=== PATIENT | female | born 1940 | race Caucasian/White ===

== ENCOUNTER 2016-12-01 14:50 | Emergency (ER) | payer OTHER ==
[2016-12-01] MEDS ORDERED: methylPREDNISolone SOD SUCC 125 MG/2 ML VIAL IVP ONE (16:21)
[2016-12-01] MEDS ORDERED: IPRATROPIUM/ALBUTEROL 3 ML DEYVIAL IH ONE (16:22)
--- NOTE | 2016-12-01 16:39 | UCPHY ---
H & P Patient Type: Established HPI/ROS: CHIEF COMPLAINT: Cough, shortness of breath HISTORY OF PRESENT ILLNESS: cough of several days duration. This is gradual in onset. Constant in duration. Mild to moderate in severity. Steadily worsening since starting. No chest pain with this but does have a pleuritic pain with coughing. Occasionally she coughs so hard she has a headache. No nausea or vomiting. No neck pain or stiffness. No fever or chills. No body aches. She does have a 25 pack-year history of smoking but she quit 15 years ago. She denies any diagnosis of COPD, but she does have obstructive sleep apnea and is not taking her prescribed Qvar and Atrovent inhalers. Oxygen use at night with CPAP. Symptoms are worse with exacerbation of a cough which is unpredictable. There is no known alleviating factor. No chest pain at rest. No other associated complaints or modifying factors. REVIEW OF SYSTEMS: Ten systems reviewed and are negative unless otherwise noted in the HPI EXAMINATION General Appearance: Alert, no distress Head: normocephalic, atraumatic Eyes: Pupils equal and round, no conjunctival pallor or injection ENT, Mouth: Mucous membranes moist Neck: Normal inspection, supple, non-tender Respiratory: Scattered rhonchi and mild expiratory wheezing. There is no consolidation. No retractions or distress. Cardiovascular: Regular rate and rhythm Gastrointestinal: Obese body habitus. No tenderness Back: non-tender, no bony abnormalities Neurological: A&O, nonfocal, normal gait Skin: Warm and dry, no rash Extremities: Nontender, bilateral, 1+ nonpitting pedal edema Psychiatric: Mood and affect normal Differential Diagnoses: 1. COPD exacerbation 2. acute bronchitis 3. community-acquired pneumonia 4. dyspnea MDM: cough and mild shortness of breath the patient is likely undiagnosed COPD patient. She has no chest pain of any kind. Her vital signs are stable. Examination is consistent more with COPD exacerbation versus bronchitis, less likely pneumonia. Labs and chest x-ray are pending at this time. She has not been taking her Qvar Atrovent as prescribed as she felt this was only as needed medications. Re-evaluation 17:30 Patient remains hemodynamically stable with normal oxygenation on room air. She is feeling minimally better after the DuoNeb treatment. Chest x-ray is read as a possible compensated CHF. She does have a mildly elevated BNP, this is consistent with her baseline per patient. She has no chest pain. Her cough is unimproved. This is likely a bronchitis, for which I will cover her with Levaquin and Tessalon Perles. Discharged home in stable condition to follow up with the primary care physician tomorrow or Monday. ED precautions for worsening cough, fever, chills, chest pain. Patient and spouse at bedside are comfortable with this plan. This patient was independently evaluated without the aide of supervising physician. Smoking Status: Former smoker Constitutional: Initial Vital Signs Temperature (C) 98.4 F 12/01/16 15:55 Heart Rate 69 12/01/16 15:55 Respiratory Rate 18 12/01/16 15:55 Blood Pressure 136/92 H 12/01/16 15:55 O2 Sat (%) 92 12/01/16 15:55 O2 Delivery Mode Room Air Allergies/Adverse Reactions: amoxicillin Allergy (Verified 12/01/16 15:46) erythromycin base [Erythromycin Base] Allergy (Verified 12/01/16 15:46) Rash Home Medications: Medication Instructions Recorded Bumetanide [Bumex (*)] 2 mg PO DAILY 09/24/13 Nebivolol HCl [Bystolic 5 mg (*)] 5 mg PO DAILY 09/24/13 [place]-3S/Dha/Epa/Fish Oil [Fish 1 each PO DAILY 09/24/13 Oil 1,200 mg Softgel] Omeprazole [Prilosec 20 mg] 40 mg PO DAILY 09/24/13 Potassium Cl [Klor-Con 20 meq (*)] 20 meq PO BID 09/24/13 FLUoxetine [Prozac 20 MG (*)] 20 mg PO DAILY 07/14/16 Herbals/Supplements -Info Only 1 ea PO DAILY 07/14/16 Multivitamins [Multivitamin (*)] 1 each PO DAILY 07/14/16 Atrovent Hfa (*) 12/01/16 Benzonatate [Tessalon Pearles (RX)] 100 mg PO Q6-8PRN PRN #12 cap 12/01/16 GABAPENTIN 12/01/16 Rosuvastatin Calcium 12/01/16 levOFLOXACIN [Levofloxacin] 750 mg PO DAILY #7 tablet 12/01/16 Medical Decision Making - Data Points Laboratory Results: Laboratory Results 12/01/16 16:50 12/01/16 16:50 12/01/16 12/01/16 17:35 16:50 WBC 4.88 10^3/uL (3.80-9.50) RBC 4.05 L 10^6/uL (4.18-5.33) Hgb 13.1 g/dL (12.6-16.3) Hct 38.3 % (38.0-47.0) MCV 94.6 fL (81.5-99.8) MCH 32.3 pg (27.9-34.1) MCHC 34.2 g/dL (32.4-36.7) RDW 14.0 % (11.5-15.2) Plt Count 141 L 10^3/uL (150-400) MPV 9.6 fL (8.7-11.7) Neut % (Auto) 59.1 % (39.3-74.2) Lymph % (Auto) 28.5 % (15.0-45.0) [place] % (Auto) 9.6 % (4.5-13.0) Eos % (Auto) 2.0 % (0.6-7.6) Baso % (Auto) 0.4 % (0.3-1.7) Nucleat RBC Rel Count 0.0 % (0.0-0.2) Absolute Neuts (auto) 2.88 10^3/uL (1.70-6.50) Absolute Lymphs (auto) 1.39 10^3/uL (1.00-3.00) Absolute Monos (auto) 0.47 10^3/uL (0.30-0.80) Absolute Eos (auto) 0.10 10^3/uL (0.03-0.40) Absolute Basos (auto) 0.02 10^3/uL (0.02-0.10) Absolute Nucleated RBC 0.00 10^3/uL (0-0.01) Immature Gran % 0.4 % (0.0-1.1) Immature Gran # 0.02 10^3/uL (0.00-0.10) Sodium 140 mEq/L (134-144) Potassium 4.2 mEq/L (3.5-5.2) Chloride 100 mEq/L (97-110) Carbon Dioxide 30 mEq/l (22-31) Anion Gap 10 mEq/L (8-16) BUN 18 mg/dL (7-23) Creatinine 1.0 mg/dL (0.6-1.0) Estimated GFR 54 Glucose 110 H mg/dL (70-100) Calcium 9.8 mg/dL (8.5-10.4) NT-Pro-B Natriuret Pep 904 H pg/mL (0-450) Influenza Typ A,B (DFA) NEGATIVE FOR FLU (NEGATIVE) Medications Given: Discontinued Medications Albuterol/Ipratropium (Duoneb) 3 ml IH EDNOW ONE Stop: 12/01/16 16:23 Last Admin: 12/01/16 16:40 Dose: 3 ml Methylprednisolone Sodium Succinate (Solu-Medrol) 125 mg IVP EDNOW ONE Stop: 12/01/16 16:22 Last Admin: 12/01/16 16:40 Dose: 125 mg Departure - Departure Disposition: Home, Routine, Self-Care Clinical Impression: CHF with right heart failure, Bronchitis, Cough Condition: Good Instructions: Acute Bronchitis (ED), Heart Failure (ED), Dextromethorphan (By mouth) Additional Instructions: Follow-up with primary care physician. Presents to the emergency department for worsening cough, fever, chills or any chest pain of any kind. Recommend wearing oxygen this evening and during CPAP tonight. Referrals: Gary Bush MD [Primary Care Provider] - 2-3 days, call for appt. Prescriptions: levOFLOXACIN [Levofloxacin] 750 mg PO DAILY #7 tablet Benzonatate [Tessalon Pearles (RX)] 100 mg PO Q6-8PRN PRN #12 cap PRN Reason: Cough, Mild - PQRS PQRS Measurement: Not applicable
[2016-12-01 16:54] LABS: % IMMATURE GRANULYOCYTES 0.4 % (0.0-1.1); ABSOLUTE IMMATURE GRANULOCYTES 0.02 10^3/uL (0.00-0.10); ADD DIFF? NO; ADD MORPH? NO; ADD SCAN? NO; ATYPICAL LYMPHOCYTE FLAG 20 (0-99); FRAGMENT RBC FLAG 0 (0-99); HEMATOCRIT 38.3 % (38.0-47.0); HEMOGLOBIN 13.1 g/dL (12.6-16.3); LEFT SHIFT FLG 0 (0-99); LIPEMIA HEMOLYSIS FLAG 90 (0-99); MEAN CELL HEMOGLOBIN 32.3 pg (27.9-34.1); MEAN CELL HEMOGLOBIN CONCENTR. 34.2 g/dL (32.4-36.7); MEAN CELL VOLUME 94.6 fL (81.5-99.8); MEAN PLATELET VOLUME 9.6 fL (8.7-11.7); PLATELET CLUMPS FLAG 0 (0-99); PLATELET COUNT 141 10^3/uL (150-400); RED BLOOD CELL COUNT 4.05 10^6/uL (4.18-5.33)
[2016-12-01 17:10] LABS: CALCIUM 9.8 mg/dL (8.5-10.4); POTASSIUM 4.2 mEq/L (3.5-5.2)
--- NOTE | 2016-12-01 17:10 | DX ---
Chest, PA and Lateral History:Cough and dyspnea. Comparison: July 14, 2016, September 25, 2013 and September 24, 2013 Findings: Chronic haziness at the left base likely is related to scarring or small chronic effusion. The heart is enlarged. The pulmonary vascularity looks redistributed. There is no pulmonary edema. Th ere is no focal infiltrate or consolidation. There is chronic degenerative change in the midthoracic spine. The patient is obese. Impression: Borderline compensated CHF. No evidence for pneumonia.
[2016-12-01 18:05] VITALS: TEMP 98; O2SAT 95
[2016-12-01 19:59] VITALS: BP 156/85; PULSE 89; RESP 20
== END 2016-12-01 19:57 | disposition home or self-care (01) ==
LOC: CED 14:50
DX: I50.9 Heart failure, unspecified (principal); J20.9 Acute bronchitis, unspecified; E66.9 Obesity, unspecified; Z87.891 Personal history of nicotine dependence
CPT/HCPCS: 71020; 96374; G0463; 80048-PO; 83880-PO; 85025-PO; 87400-PO; 99214-PO

== ENCOUNTER → 2016-12-01 | Outpatient (CLI) | payer OTHER ==
--- NOTE | 2016-12-01 15:48 | MA ---
Bilateral Digital Screening Mammography Clinical History: 76-year-old female with no family history of breast cancer presenting for routine a nnual mammographic screening. Technique: Digital CC, MLO, and cleavage views are submitted and compared to previous studies dated D 2014, October 10, 2014, September 04, 2013, September 07, 2012, and August 21, 2012. Cuta neous markers have been placed over moles on the skin surface of each breast. Additionally, this exam ination was processed by the [employer] computer-aided detection system. Breast Density: Type D - 75-100%. CAD Evaluation: Reviewed. Findings: There is a mild residual fibroglandular pattern with some scattered nodular opacities which are stable in distribution. There is no focal neodensity, or interim architectural change. Rare mark gn-appearing calcifications are seen, with no suspicious clusters. Impression: Negative mammography. BI-RADS category 1. Recommendation: Routine annual mammographic screening. [facility] will send a result letter to the patient. Negative mammography should not preclude additional workup of a clinically suspicious finding. The patient's information is entered into a reminder system with a target due date for her next mammo gram.
== END ==
LOC: CIMAGING 14:48
DX: Z12.31 Encounter for screening mammogram for malignant neoplasm of breast (principal)
CPT/HCPCS: G0202

== ENCOUNTER → 2017-05-06 | Outpatient (CLI) | payer OTHER | LOC: GIMAGING 18:44 | PROVIDERS: ATTEND Nurse Practitioner Family | DX: M79.675 Pain in left toe(s) (principal) | CPT/HCPCS: 73660-PO ==

== ENCOUNTER 2017-06-05 12:48 | Emergency (ER) | payer OTHER ==
[2017-06-05 14:55] LABS: % IMMATURE GRANULYOCYTES 0.2 % (0.0-1.1); ABSOLUTE IMMATURE GRANULOCYTES 0.01 10^3/uL (0.00-0.10); ADD DIFF? NO; ADD MORPH? NO; ADD SCAN? NO; ATYPICAL LYMPHOCYTE FLAG 20 (0-99); FRAGMENT RBC FLAG 0 (0-99); HEMATOCRIT 36.7 % (38.0-47.0); HEMOGLOBIN 12.4 g/dL (12.6-16.3); LEFT SHIFT FLG 10 (0-99); LIPEMIA HEMOLYSIS FLAG 90 (0-99); MEAN CELL HEMOGLOBIN 31.4 pg (27.9-34.1); MEAN CELL HEMOGLOBIN CONCENTR. 33.8 g/dL (32.4-36.7); MEAN CELL VOLUME 92.9 fL (81.5-99.8); MEAN PLATELET VOLUME 9.9 fL (8.7-11.7); PLATELET CLUMPS FLAG 10 (0-99); PLATELET COUNT 143 10^3/uL (150-400); RED BLOOD CELL COUNT 3.95 10^6/uL (4.18-5.33); RED CELL DISTRIBUTION WIDTH 14.5 % (11.5-15.2)
--- NOTE | 2017-06-05 14:58 | EDPHY ---
H & P Stated Complaint: Legs swelling/painful x several months;sent for "tests" HPI/ROS: CHIEF COMPLAINT: Lower extremity edema HISTORY OF PRESENT ILLNESS: Patient complains of several days duration of lower extremity edema. This was gradual onset. Constant duration. This is in addition to her chronic edema from congestive heart failure. He was some warmth and tenderness to both lower extremities, left greater than right. It has improved somewhat with application of Luis wrap to the left leg in a compression stocking on the right. Improved further with elevation of the legs last night. She was actually seen on Monday by a physician in her primary care office. They did not perform any studies at that time. She contacted the nurse line today. They originally scheduled her back with primary care office, but then they contacted her instructed to come to the emergency department. She does take Bumex for her diuretic, but she missed the dose this morning. Shortness of breath is at baseline. No fever or chills. No cough. No chest pain of any kind. No recent travel or surgery. No other associated complaints or modifying factors. REVIEW OF SYSTEMS: Ten systems reviewed and are negative unless otherwise noted in the HPI PAST MEDICAL HISTORY: Significant for congestive heart failure, diabetes mellitus, osteoarthritis, hypertension, sleep apnea SOCIAL HISTORY: Nonsmoker. Lives independently with her FAMILY HISTORY: Noncontributory EXAMINATION General Appearance: Alert, no distress Head: normocephalic, atraumatic Eyes: Pupils equal and round, no conjunctival pallor or injection ENT, Mouth: Mucous membranes moist Neck: Normal inspection, supple, non-tender Respiratory: Lungs are clear to auscultation. No wheezing, rhonchi or crackles. No diminishment. Cardiovascular: Regular rate and rhythm. No murmur. Pulses intact distally symmetrically. Gastrointestinal: Obese Abdomen is soft and nontender. No distention. Back: non-tender, no bony abnormalities Neurological: GCS 15. A&O, nonfocal, normal gait Skin: Warm and dry, no rash. There is erythema bilateral lower extremities. There is some weeping of the left anterior ramirez. Some warmth to the left ramirez. Extremities: Significant, pitting edema of the lower extremities, left greater than right. There is some erythema of the lower extremities, left greater than right. Negative Homans. No palpable cords. Psychiatric: Mood and affect normal DIFFERENTIAL DIAGNOSES: Including but not limited to congestive heart failure exacerbation, hypervolemia , DVT, extremity cellulitis MDM: 2:50 p.m. Bilateral lower extremity edema, left greater than right. History of congestive heart failure. Appearance on examination suggest volume overload more likely than DVT or cellulitis. Laboratory studies and ultrasound lower extremities are pending. 4:00 p.m. Laboratory studies reveal mild elevation of BNP is 1200. This is elevated from previous study in November. Ultrasound is pending at this time. Chest x-ray as read by me reveals mild edema on the left. She is resting comfortably in no distress vital signs stable at this time. 4:45 p.m. Case discussed with Dr. Tavares. Discussed the ultrasound findings as documented. I have re-evaluated the patient. Do feel the patient is stable for discharge home with instructions to take her Bumex as soon as she returns home. I have re-evaluated her. There is still some warmth to the left leg. There is a mild discrepancy in circumference of left greater than right. She has no chest pain. Her vital signs remained stable. No hypoxia. I do not feel she warrants admission for diuresis at this time. She will go home and take her Bumex tonight and 1 again in the morning. She will return to the emergency department for any worsening pain or swelling, any increasing erythema , any fever. She also has instructions to return to the emergency department should she develop any chest pain or shortness of breath. She will keep her appointment on Monday with Dr. Morrell otherwise. She is comfortable with this plan. Her spouse is comfortable this plan. She is discharged home stable condition. SUPERVISION: Case discussed in detail with Dr. Curry. Source: Patient, Family Exam Limitations: No limitations - Personal History Current Tetanus Diphtheria and Acellular Pertussis (TDAP): Yes Tetanus Vaccine Date: 2009 - Medical/Surgical History Hx Asthma: No Hx Chronic Respiratory Disease: Yes Hx Diabetes: No Hx Cardiac Disease: Yes Hx Renal Disease: No Hx Cirrhosis: No Hx Alcoholism: No Hx HIV/AIDS: No Hx Splenectomy or Spleen Trauma: No Other PMH: PMHx: htn, CHF, CPAP,sleep apnea,arthritis. PSHx: gall bladder, b/ knee and r/hip replacments - Social History Smoking Status: Former smoker Constitutional: Initial Vital Signs Temperature (C) 97.7 F 06/05/17 13:20 Heart Rate 59 L 06/05/17 13:20 Respiratory Rate 20 06/05/17 13:20 Blood Pressure 167/71 H 06/05/17 13:20 O2 Sat (%) 95 06/05/17 13:20 O2 Delivery Mode Room Air Allergies/Adverse Reactions: amoxicillin Allergy (Verified 06/05/17 13:29) erythromycin base [Erythromycin Base] Allergy (Verified 06/05/17 13:29) Rash Home Medications: Medication Instructions Recorded Bumetanide [Bumex (*)] 2 mg PO DAILY 09/24/13 Nebivolol HCl [Bystolic 5 mg (*)] 5 mg PO DAILY 09/24/13 Omeprazole [Prilosec 20 mg] 40 mg PO DAILY 09/24/13 Potassium Cl [Klor-Con 20 meq (*)] 20 meq PO BID 09/24/13 FLUoxetine [Prozac 20 MG (*)] 20 mg PO DAILY 07/14/16 Atrovent Hfa (*) 12/01/16 GABAPENTIN 12/01/16 Rosuvastatin Calcium 12/01/16 Allopurinol [Allopurinol 100 MG 100 mg PO 06/05/17 (*)] Beclomethasone Qvar 40 [Qvar 40 1 puffs IH BID 06/05/17 (*)] Cephalexin [Keflex (*)] 500 mg PO TID #21 cap 06/05/17 Medical Decision Making - Diagnostics Imaging Results: Imaging Impressions Extremity Venous Study 06/05/17 14:48 Impression: There is no sonographic evidence of deep or superficial venous thrombosis identified in either lower extremity. Findings were discussed with Gilberto Verdugo PA-C at 16:40, on 06/05/2017. Chest X-Ray 06/05/17 14:49 Impression: Moderate cardiomegaly with chronic congestive heart failure. - Data Points Laboratory Results: Laboratory Results 06/05/17 14:42 06/05/17 14:42 06/05/17 06/05/17 06/05/17 14:42 14:42 14:42 WBC 4.02 10^3/uL 10^3/uL (3.80-9.50) RBC 3.95 10^6/uL L 10^6/uL (4.18-5.33) Hgb 12.4 g/dL L g/dL (12.6-16.3) Hct 36.7 % L % (38.0-47.0) MCV 92.9 fL fL (81.5-99.8) MCH 31.4 pg pg (27.9-34.1) MCHC 33.8 g/dL g/dL (32.4-36.7) RDW 14.5 % % (11.5-15.2) Plt Count 143 10^3/uL L 10^3/uL (150-400) MPV 9.9 fL fL (8.7-11.7) Neut % (Auto) 58.6 % % (39.3-74.2) Lymph % (Auto) 30.3 % % (15.0-45.0) [place] % (Auto) 9.2 % % (4.5-13.0) Eos % (Auto) 1.2 % % (0.6-7.6) Baso % (Auto) 0.5 % % (0.3-1.7) Nucleat RBC Rel Count 0.0 % % (0.0-0.2) Absolute Neuts (auto) 2.35 10^3/uL 10^3/uL (1.70-6.50) Absolute Lymphs (auto) 1.22 10^3/uL 10^3/uL (1.00-3.00) Absolute Monos (auto) 0.37 10^3/uL 10^3/uL (0.30-0.80) Absolute Eos (auto) 0.05 10^3/uL 10^3/uL (0.03-0.40) Absolute Basos (auto) 0.02 10^3/uL 10^3/uL (0.02-0.10) Absolute Nucleated RBC 0.00 10^3/uL 10^3/uL (0-0.01) Immature Gran % 0.2 % % (0.0-1.1) Immature Gran # 0.01 10^3/uL 10^3/uL (0.00-0.10) PT 14.8 SEC SEC (12.0-15.0) INR 1.16 (0.83-1.16) APTT 29.1 SEC SEC (23.0-38.0) Sodium 139 mEq/L mEq/L (134-144) Potassium 4.6 mEq/L mEq/L (3.5-5.2) Chloride 105 mEq/L mEq/L (97-110) Carbon Dioxide 22 mEq/l mEq/l (22-31) Anion Gap 12 mEq/L mEq/L (8-16) BUN 27 mg/dL H mg/dL (7-23) Creatinine 0.8 mg/dL mg/dL (0.6-1.0) Estimated GFR > 60 Glucose 105 mg/dL H mg/dL (70-100) Calcium 10.0 mg/dL mg/dL (8.5-10.4) Troponin I < 0.012 ng/mL ng/mL (0-0.034) NT-Pro-B Natriuret Pep 1230 pg/mL H pg/mL (0-450) Departure - Departure Disposition: Home, Routine, Self-Care Clinical Impression: Peripheral edema CHF (congestive heart failure) Qualifiers: Congestive heart failure type: systolic Congestive heart failure chronicity: chronic Qualified Code(s): I50.22 - Chronic systolic (congestive) heart failure Condition: Good Instructions: Leg Edema (ED) Additional Instructions: 1. Keflex as prescribed 2. Resume Bumex this evening and again in the morning 3. Return to the emergency department tomorrow for any worsening swelling, increasing erythema, increasing warmth, fever or pain 4. Keep your appointment with Dr. Morrell on Monday 5. Return to the emergency department for any chest pain or changes in baseline shortness of breath Referrals: Gary Bush MD [Primary Care Provider] - As per Instructions Prescriptions: Cephalexin [Keflex (*)] 500 mg PO TID #21 cap
--- NOTE | 2017-06-05 15:01 | CPEKG ---
Heart Rate: 63 RR Interval: 952 P-R Interval: 192 QRSD Interval: 90 QT Interval: 436 QTC Interval: 447 P Hope: 63 QRS Hope: 36 T Wave Hope: 16 EKG Severity - BORDERLINE ECG - EKG Impression: SINUS RHYTHM EKG Impression: R=S in V1. Consider old posterior infarct versus right ventricular EKG Impression: hypertrophy.This is new since July 14, 2016 EKG Impression: Diffuse mild ST-T wave abnormalities Electronically Signed By: Mendel Smith 07-Jun-2017 11:05:53
[2017-06-05 15:04] LABS: INR 1.16 (0.83-1.16); PROTIME(PATIENT) 14.8 SEC (12.0-15.0)
[2017-06-05 15:05] LABS: APTT 29.1 SEC (23.0-38.0)
[2017-06-05 15:09] LABS: ANION GAP 12 mEq/L (8-16); CARBON DIOXIDE 22 mEq/l (22-31); CHLORIDE 105 mEq/L (97-110); CREATININE 0.8 mg/dL (0.6-1.0); GLOMERULAR FILTRATION RATE > 60; GLUCOSE 105 mg/dL (70-100); POTASSIUM 4.6 mEq/L (3.5-5.2); SODIUM 139 mEq/L (134-144)
[2017-06-05 15:21] LABS: TROPONIN I < 0.012 ng/mL (0-0.034)
[2017-06-05 15:30] VITALS: RESP 16; TEMP 97.2
[2017-06-05 17:15] VITALS: BP 147/82; PULSE 73; O2SAT 93
== END 2017-06-05 17:21 | disposition home or self-care (01) ==
DX: I11.0 Hypertensive heart disease with heart failure (principal); I50.22 Chronic systolic (congestive) heart failure; E11.9 Type 2 diabetes mellitus without complications; Z87.891 Personal history of nicotine dependence

== ENCOUNTER → 2017-06-13 | Outpatient (CLI) | payer OTHER | LOC: BHFA 14:15 | PROVIDERS: ATTEND Internal Medicine Interventional Cardiology | DX: I50.9 Heart failure, unspecified (principal) ==

== ENCOUNTER → 2017-06-16 | Outpatient (CLI) | payer OTHER | LOC: BHFA 10:45 | PROVIDERS: ATTEND Internal Medicine Cardiovascular Disease | DX: I50.9 Heart failure, unspecified (principal) ==

== ENCOUNTER → 2017-12-04 | Outpatient (CLI) | payer OTHER | LOC: CIMAGING 14:48 | PROVIDERS: ATTEND Family Medicine Sports Medicine | DX: Z12.31 Encounter for screening mammogram for malignant neoplasm of breast (principal) ==

== ENCOUNTER → 2017-12-21 | Outpatient (CLI) | payer OTHER | LOC: FIMAGING 13:40 | PROVIDERS: ATTEND Family Medicine Sports Medicine | DX: R92.8 Other abnormal and inconclusive findings on diagnostic imaging of breast (principal) ==

== ENCOUNTER → 2018-01-24 | Outpatient (CLI) | payer OTHER ==
[~2018-01-24] MED LIST: BUPIVACAINE 0.5% 10 ML SDV ONE; LIDOCAINE 1% 300 MG/30 ML SDV ONE; THROMBIN (BOVINE) 5,000 UNIT VIAL TP ONE
== END ==
LOC: FIMAGING 07:32
PROVIDERS: ATTEND Family Medicine Sports Medicine
PROC: 0HBU3ZX Excision of Left Breast, Percutaneous Approach, Diagnostic (ICD-10-PCS; principal; 2018-01-24)
DX: D24.2 Benign neoplasm of left breast (principal)

== ENCOUNTER 2018-03-13 06:26 | Day surgery (SDC) | payer OTHER ==
[2018-03-13] MEDS ORDERED: LIDOCAINE 1% 2 ML INJ ID PRN (06:46)
[2018-03-13] MEDS ORDERED: LR 1,000 ML IV ONE (06:46)
[2018-03-13] MEDS ORDERED: LIDOCAINE 1% 300 MG/30 ML SDV ONE ×2 (07:27→08:31)
--- NOTE | 2018-03-13 08:07 | PDANEPAE ---
ANE Past Medical History - Cardiovascular History Hx Hypertension: Yes Hx Arrhythmias: No Hx Chest Pain: No Hx Coronary Artery / Peripheral Vascular Disease: No Hx CHF / Valvular Disease: Yes Hx Palpitations: No Cardiovascular History Comment: chf. high chol. followed by dr contreras - Pulmonary History Hx COPD: No Hx Asthma/Reactive Airway Disease: No Hx Recent Upper Respiratory Infection: No Hx Oxygen in Use at Home: Yes O2 in Use at Home (L/minute): 2l Hx Sleep Apnea: Yes Sleep Apnea Screening Result - Last Documented: Positive Pulmonary History Comment: carlos positive uses cpap- instructed pt to bring. sob easily - Neurologic History Hx Cerebrovascular Accident: Yes Hx Seizures: No Hx Dementia: No Neurologic History Comment: tia 20 yrs ago. cervical radiculopathy. 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 right AFSHIN 2007 and 2008- psueomondus and staph, abx spacer and second replacement done. bilateral TKA' s. lauren. tonsillectomy. left ankle compound fx repair ANE Review of Systems Review of Systems: - Exercise capacity METS (RN): 2 METS ANE Patient History - Allergies Allergies/Adverse Reactions: amoxicillin Allergy (Verified 03/12/18 14:13) rash, itching, sob - Home Medications Home Medications: Bumetanide [Bumex (*)] 09/24/13 [Last Taken 03/12/18 12:00] Nebivolol HCl [Bystolic 5 mg (*)] 09/24/13 [Last Taken 03/12/18 12:00] Omeprazole [Prilosec 20 mg] 09/24/13 [Last Taken 1 Day Ago ~03/12/18] Potassium Cl [Klor-Con 20 meq (*)] 09/24/13 [Last Taken 1 Day Ago ~03/12/18] FLUoxetine [Prozac 20 MG (*)] 07/14/16 [Last Taken 1 Day Ago ~03/12/18] Atrovent Hfa (*) 12/01/16 [Last Taken 03/12/18 23:30] GABAPENTIN 12/01/16 [Last Taken 1 Day Ago ~03/12/18] Rosuvastatin Calcium 12/01/16 [Last Taken 1 Day Ago ~03/12/18] Allopurinol [Allopurinol 100 MG (*)] 06/05/17 [Last Taken 1 Day Ago ~03/12/18] Beclomethasone Qvar 40 [Qvar 40 (*)] 06/05/17 [Last Taken 03/12/18 23:30] Aspirin EC 81 mg (*) 03/12/18 [Last Taken 1 Day Ago ~03/12/18] Dha 03/12/18 [Last Taken 1 Day Ago ~03/12/18] Doxycycline Calcium 03/12/18 [Last Taken 1 Day Ago ~03/12/18] Herbals/Supplements -Info Only 03/12/18 [Last Taken 1 Day Ago ~03/12/18] - NPO status NPO Since - Liquids (Date): 03/12/18 NPO Since - Liquids (Time): 23:30 NPO Since - Solids (Date): 03/12/18 NPO Since - Solids (Time): 23:30 - Smoking Hx Smoking Status: Former smoker - Family Anes Hx Family Hx Anesthesia Complications: none ANE Labs/Vital Signs - Labs Result Diagrams: 03/13/18 07:10 - Vital Signs Blood Pressure: 133/78 Heart Rate: 69 Respiratory Rate: 18 O2 Sat (%): 91 Height: 175.26 cm Weight: 140.614 kg ANE Physical Exam - Airway Neck exam: FROM Mallampati Score: Class 3 Mouth exam: normal dental/mouth exam - Pulmonary Pulmonary: no respiratory distress - Cardiovascular Cardiovascular: regular rate and rhythym - ASA Status ASA Status: III ANE Anesthesia Plan Total IV Anesthesia: Yes
[2018-03-13] MEDS ORDERED: BUPIVACAINE/EPI 0.5% 30 ML SDV ONE (08:31)
[2018-03-13] MEDS ORDERED: fentaNYL 100 MCG/2 ML INJ ONE (09:13)
[2018-03-13] MEDS ORDERED: PROPOFOL/EMULSION 500 MG/50 ML BOTTLE IV ONE (09:13)
[2018-03-13] MEDS ORDERED: LIDOCAINE 2% 100 MG/5 ML SYR ONE (09:14)
--- NOTE | 2018-03-13 09:33 | PDHPUP ---
History & Physical Update H&P update statement: This history and physical update is based on an assessment of the patient which was completed after admission or registration (within 24 hours), but prior to the surgery/procedure. H&P update: H&P reviewed & patient examined, no change in patient's condition since H&P completed
[2018-03-13] MEDS ORDERED: ACETAMINOPHEN 500 MG TAB PO PRN (10:37)
[2018-03-13] MEDS ORDERED: ALBUTEROL 3 ML DEYVIAL IH PRN (10:37)
[2018-03-13] MEDS ORDERED: ONDANSETRON 4 MG/2 ML VIAL IVP PRN (10:37)
[2018-03-13] MEDS ORDERED: NALOXONE HCL 0.4 MG/ML INJ IVP PRN (10:37)
[2018-03-13] MEDS ORDERED: fentaNYL 100 MCG/2 ML INJ IVP PRN (10:37)
--- NOTE | 2018-03-13 10:37 | POSTANESTH ---
Post Anesthetic Evaluation Cardiovascular Status: Similar to Pre-Op Cond Respiratory Status: Similar to Pre-op Cond. Level of Consciousness/Mental Status: Alert and Oriented Pain Control: Adequate, Prn Tx Ordered Nausea/Vomiting Control: Adequate, Prn Tx Ordered Complications Possibly Related to Anesthesia: None Noted
[2018-03-13 11:37] VITALS: BP 118/67
--- NOTE | 2018-03-13 11:49 | POSTOPPROG ---
Post Op Note Date of Operation: 03/13/18 Surgeon: Getachew Emery [place] Farmer: Linda Finch PA-C Anesthesiologist: Sina Domínguez Anesthesia: IV Sedation Pre-op Diagnosis: left breast mass Post-op Diagnosis: left breast mass Procedure: excisional left breast biopsy with mammo loc Findings: specimen mammo with lesion Inf/Abcess present in the surg proc area at time of surgery?: No EBL: Minimal Complications: no immediate Specimen(s): left breast
--- NOTE | 2018-03-13 12:00 | GOP ---
[f rep st] OPERATIVE REPORT DATE OF OPERATION: 03/13/2018 SURGEON: Getachew Emery MD TRACK WELDER: Linda Finch PA-C. ANESTHESIA: MAC. ANESTHESIOLOGIST: Dr. Domínguez. PREOPERATIVE DIAGNOSIS: Radiographic left breast abnormality. POSTOPERATIVE DIAGNOSIS: Radiographic left breast abnormality. PROCEDURE PERFORMED: Excisional left breast biopsy with stereotactic localization. FINDINGS: See below. INDICATIONS: 77-year-old female with a newly developing density within her left lower outer quadrant. Attempted stereotactic biopsy was unsuccessful to be able to be completed secondary to the patient's large breast size and technical constraints. She is undergoing excisional biopsy at this time. Risks and benefits of bleeding, infection, differential diagnosis, as well as need for additional surgical intervention. All questions were answered. She desires to proceed. A surgical aides teacher is standard, necessary, and customary for the safe performance of this procedure. DESCRIPTION OF PROCEDURE: Monitored anesthesia was started upon returning from wire localization. A transverse lower outer quadrant incision was created. The localization wire was identified from beneath the skin. The wire was transected externally and brought beneath the underside of the dermis. Using sharp dissection, a large core of tissue was taken encompassing the entire localization wire. This was tagged for orientation and sent for permanent specimen processing. After specimen review showed satisfactory lesion inclusion , satisfactory hemostasis was ensured throughout the breast cavity. The defect was closed in layers with absorbable sutures followed by Dermabond. The patient was taken to recovery uneventfully. /[id number]/MODL MTDD
== END 2018-03-13 11:50 | disposition home or self-care (01) ==
LOC: FSGY 06:26
PROVIDERS: ATTEND Surgery
PROC: 0HBU0ZX Excision of Left Breast, Open Approach, Diagnostic (ICD-10-PCS; principal; 2018-03-13 09:00)
DX: C50.912 Malignant neoplasm of unspecified site of left female breast (principal)
CPT/HCPCS: J2001; J2704; J3010

== ENCOUNTER 2018-03-27 13:23 | Emergency (ER) | payer OTHER ==
--- NOTE | 2018-03-27 13:39 | EDPHY ---
H & P Stated Complaint: Rolled ankle while getting into car today. Increased back pain Time Seen by Provider: 03/27/18 13:39 HPI/ROS: HPI: This is a 78-year-old female who presents with Chief Complaint: Rolled ankle while getting into car today. Increased back pain Location: Right ankle Quality: Eversion injury Duration: Prior to arrival Signs and Symptoms: No bleeding, no radiation, no numbness, no weakness, no tingling, no incontinence, + decreased range of motion, + swelling, + pain, no fever Timing: Acute Severity: 07/06 Context: Patient presents via EMS with complaints of right ankle; lateral aspect injury prior to arrival. Patient reports that she was trying to get into the vehicle today when she put her right ankle up onto the running board. She accidentally slipped and everted her ankle. She reports that she felt immediate, severe, constant, nonradiating pain that worsened with weight- bearing. She felt like she heard a popping sensation in the lateral aspect. Denies LOC/head injury/neck pain/dizziness/nausea/vomiting/amnesia. History sciatic on the right lower extremity. Patient scheduled for breast lumpectomy this Monday at this hospital. Reports that she has a wheelchair, bedside commode, walker at home to use. Did not take her Lasix this morning for chronic pedal edema. Denies any worsening lower back pain or radiculopathy from her baseline. No urinary incontinence/change in bowel habits. Modifying Factors: None Comment: ROS: see HPI Constitutional: No fever, no chills, no weight loss Eyes: No blurred vision Respiratory: No shortness of breath, no cough Cardiovascular: No chest pain Gastrointestinal: No nausea, no vomiting no diarrhea Genitourinary: No dysuria Extremities: No myalgias Neurologic: No weakness, no numbness Skin: No rashes Hematologic: No bruising, no bleeding MEDICAL/SURGICAL/SOCIAL HISTORY: PMHx: htn, CHF, CPAP, sleep apnea, arthritis, sciatic, lower extremity edema PSHx: gall bladder, b/knee and r/hip replacements Social history: . Retired. CONSTITUTIONAL: Extremely polite and cooperative obese white female, awake and alert, no obvious distress HEENT: Atraumatic and normocephalic, PERRL, EOMI. Nares patent; no rhinorrhea; no nasal mucosal edema. Tympanic membranes clear. Oropharynx clear, no exudate and moist pink mucosa. Airway patent. No lymphadenopathy. No meningismus. Cardiovascular: Normal S1/S2, regular rate, regular rhythm, without murmur rub or gallop. PULMONARY/CHEST: Symmetrical and nontender. Clear to auscultation bilaterally. Good air movement. No accessory muscle usage. ABDOMEN: Soft, nondistended, nontender, no rebound, no guarding, no peritoneal signs, no masses or organomegaly. No CVAT. EXTREMITIES: 2/2 pulses, strength 5/5, right Ankle: Moderate swelling and ecchymosis surrounding the lateral malleolus. Plantar flexion to 50, dorsiflexion to 20. Foot inversion to 35 degree. Mild tenderness/swelling Anterior talofibular ligament. Moderate tenderness/swelling Calcaneofibular ligament, no tenderness/swelling posterior talofibular ligament, no tenderness/ swelling posterior inferior tibiofibular ligament. Achilles tendon intact. no deformities, no clubbing, no cyanosis or edema. NEUROLOGICAL: no focal neuro deficits. GCS 15. SKIN: Warm and dry, no erythema. no rash. Good capillary refill. Source: Patient Exam Limitations: No limitations - Personal History Current Tetanus/Diphtheria Vaccine: Yes Current Tetanus Diphtheria and Acellular Pertussis (TDAP): Yes Tetanus Vaccine Date: 2009 - Medical/Surgical History Hx Asthma: No Hx Chronic Respiratory Disease: Yes Hx Diabetes: No Hx Cardiac Disease: Yes Hx Renal Disease: No Hx Cirrhosis: No Hx Alcoholism: No Hx HIV/AIDS: No Hx Splenectomy or Spleen Trauma: No Other PMH: PMHx: htn, CHF, CPAP,sleep apnea,arthritis. PSHx: gall bladder, b/ knee and r/hip replacments - Social History Smoking Status: Former smoker Constitutional: Initial Vital Signs Temperature (C) 36.5 C 03/27/18 13:23 Heart Rate 60 03/27/18 13:23 Respiratory Rate 16 03/27/18 13:23 Blood Pressure 158/89 H 03/27/18 13:23 O2 Sat (%) 94 03/27/18 13:23 O2 Delivery Mode Room Air Allergies/Adverse Reactions: amoxicillin Allergy (Verified 03/12/18 14:13) rash, itching, sob Home Medications: Medication Instructions Recorded Bumetanide [Bumex (*)] 09/24/13 Nebivolol HCl [Bystolic 5 mg (*)] 09/24/13 Omeprazole [Prilosec 20 mg] 09/24/13 Potassium Cl [Klor-Con 20 meq (*)] 09/24/13 FLUoxetine [Prozac 20 MG (*)] 07/14/16 Atrovent Hfa (*) 12/01/16 GABAPENTIN 12/01/16 Rosuvastatin Calcium 12/01/16 Allopurinol [Allopurinol 100 MG 06/05/17 (*)] Beclomethasone Qvar 40 [Qvar 40] 06/05/17 Aspirin EC 81 mg (*) 03/12/18 Dha 03/12/18 Doxycycline Calcium 03/12/18 Herbals/Supplements -Info Only 03/12/18 oxyCODONE/APAP 5/325 [Percocet 1 - 2 tab PO Q4H PRN #20 tab 03/27/18 5/325 (*)] Medical Decision Making - Diagnostics Imaging Results: Imaging Impressions Ankle X-Ray 03/27/18 13:35 Impression: 1. Minimally displaced medial malleolar avulsion fracture. 2. Age indeterminate, possibly old lateral malleolar and distal calcaneal fractures. Procedures: Procedure: Splint placement. A right walking boot was applied the Emergency Room durable medical equipment technician. After application of the splint I returned and re-examined the patient. The splint was adequately immobilizing the joint and distal to the splint the patient's circulation and sensation was intact. ED Course/Re-evaluation: IV morphine 4 mg and ice pack upon arrival with adequate relief right ankle x-ray ordered Right walking boot applied, toe-touch weight-bearing Patient already has walker/wheelchair/bedside commode at home No signs of neurovascular compromise/tenting of skin/compartment syndrome/ extremities and joints examined above and below area of concern and are neurovascularly intact. Reports pain controlled at discharge. Strong family support. This patient was seen under the supervision of my secondary supervising physician. I evaluated care for this patient independently. Differential Diagnosis: Differential diagnosis includes but is not limited to tibia fracture, fibula fracture, midfoot fracture, Lis Franc fracture, sprain. - Data Points Medications Given: Discontinued Medications Morphine Sulfate (Morphine) 4 mg IVP EDNOW ONE Stop: 03/27/18 15:00 Last Admin: 03/27/18 15:02 Dose: 4 mg Departure - Departure Disposition: Home, Routine, Self-Care Clinical Impression: Moderate right ankle sprain Qualifiers: Encounter type: initial encounter Qualified Code(s): S93.401A - Sprain of unspecified ligament of right ankle, initial encounter Medial malleolar fracture Qualifiers: Encounter type: initial encounter Fracture type: closed Fracture alignment: nondisplaced Laterality: right Qualified Code(s): S82.54XA - Nondisplaced fracture of medial malleolus of right tibia, initial encounter for closed fracture Closed left malleolar fracture Qualifiers: Encounter type: initial encounter Qualified Code(s): S82.892A - Other fracture of left lower leg, initial encounter for closed fracture Avulsion fracture of calcaneus Qualifiers: Encounter type: initial encounter Calcaneus location: tuberosity Fracture type : closed Fracture alignment: nondisplaced Laterality: right Qualified Code(s): S92.034A - Nondisplaced avulsion fracture of tuberosity of right calcaneus, initial encounter for closed fracture Condition: Good Instructions: Ankle Fracture (ED), Foot Fracture in Adults (ED), Splint Care ( ED), ORIF (DC) Additional Instructions: Keep the splint dry and in place until seen by Orthopedics. Use walker/wheelchair to aid ambulation. Toe-touch weight-bearing status only. Take Tylenol 650 mg every 4 hours and/or Ibuprofen 600 mg every 8 hours with food as needed for pain. Use Percocet every 6 hours as needed for severe/break through pain. Do not use Tylenol and Percocet concomitantly. Apply ice for 30 minutes at a time; 2-3 times per day for the next 1-2 days. Elevate your right lower extremity as much as possible over the next several days to reduce swelling. Follow up with Orthopedics in 5-7 days at which time they will evaluate and recommend with you if conservative management versus further imaging like MRI versus surgery is indicated. Return to the ER immediately if you experience new or worsening pain, discoloration, numbness, tingling, or any other symptoms that concern you. Referrals: Gary Bush MD [Primary Care Provider] - As per Instructions Torres Velasquez MD [Medical Doctor] - As per Instructions Prescriptions: oxyCODONE/APAP 5/325 [Percocet 5/325 (*)] 1 - 2 tab PO Q4H PRN #20 tab PRN Reason: Pain, Severe
[2018-03-27 15:44] VITALS: BP 160/81
== END 2018-03-27 15:44 | disposition home or self-care (01) ==
LOC: EDUNIT#
DX: S82.54XA Nondisplaced fracture of medial malleolus of right tibia, initial encounter for closed fracture (principal); S82.892A Other fracture of left lower leg, initial encounter for closed fracture; S92.034A Nondisplaced avulsion fracture of tuberosity of right calcaneus, initial encounter for closed fracture; S93.401A Sprain of unspecified ligament of right ankle, initial encounter; I11.0 Hypertensive heart disease with heart failure; I50.9 Heart failure, unspecified; Z87.891 Personal history of nicotine dependence; Z79.82 Long term (current) use of aspirin; X50.9XXA Other and unspecified overexertion or strenuous movements or postures, initial encounter
CPT/HCPCS: 73610; 96374; 99284; J2270

== ENCOUNTER 2018-03-30 11:31 | Observation (INO) | payer OTHER ==
--- NOTE | 2018-03-27 18:03 | ASMTCAGE ---
CAGE Additional Comments Pt misidentified as "not able to participate" in SBIRT; CM not able to connect w/pt before discharge Date Signed: 03/27/2018 06:02 PM Electronically Signed By:Mildred Medel RN
[2018-03-30] MEDS ORDERED: LR 1,000 ML IV ONE (12:41)
[2018-03-30] MEDS ORDERED: BUPIVACAINE/EPI 0.5% 30 ML SDV ONE (13:35)
[2018-03-30] MEDS ORDERED: LIDO/EPI 2%** Not for Epidural 20 ML MDV ONE (13:35)
--- NOTE | 2018-03-30 13:39 | POSTOPPROG ---
Post Op Note Date of Operation: 03/30/18 Surgeon: Getachew Emeyr Pre-op Diagnosis: Left breast cancer Post-op Diagnosis: Same Procedure: Left partial mastectomy with SLNB Inf/Abcess present in the surg proc area at time of surgery?: No EBL: Minimal Specimen(s): breast margins and SLNB
[2018-03-30] MEDS ORDERED: PROPOFOL/EMULSION 500 MG/50 ML BOTTLE IV ONE (14:09)
[2018-03-30] MEDS ORDERED: LIDOCAINE 2% 100 MG/5 ML SYR ONE (14:09)
[2018-03-30] MEDS ORDERED: fentaNYL 100 MCG/2 ML INJ ONE ×3 (14:13→16:35)
[2018-03-30] MEDS ORDERED: LIDO/EPI 1% **for epidural** 30 ML SDV ONE (14:21)
--- NOTE | 2018-03-30 14:32 | PDANEPAE ---
ANE History of Present Illness re-excision L breast and SN Biopsy ANE Past Medical History - Cardiovascular History Hx Hypertension: Yes Hx Arrhythmias: No Hx Chest Pain: No Hx Coronary Artery / Peripheral Vascular Disease: No Hx CHF / Valvular Disease: Yes Hx Palpitations: No Cardiovascular History Comment: chf. high chol. followed by dr contreras - Pulmonary History Hx COPD: No Hx Asthma/Reactive Airway Disease: No Hx Recent Upper Respiratory Infection: No Hx Oxygen in Use at Home: Yes O2 in Use at Home (L/minute): 2 Hx Sleep Apnea: Yes Sleep Apnea Screening Result - Last Documented: Positive Pulmonary History Comment: carlos positive uses cpap- instructed pt to bring. sob easily - Neurologic History Hx Cerebrovascular Accident: Yes Hx Seizures: No Hx Dementia: No Neurologic History Comment: tia 20 yrs ago. cervical radiculopathy. 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 right AFSHIN 2007 and 2008- psueomondus and staph, abx spacer and second replacement done. bilateral TKA' s. lauren. tonsillectomy. left ankle compound fx repair ANE Review of Systems Review of Systems: - Exercise capacity METS (RN): 2 METS ANE Patient History - Allergies Allergies/Adverse Reactions: amoxicillin Allergy (Verified 03/30/18 13:37) rash, itching, sob - Home Medications Home medications: home medication list seen and reviewed Home Medications: Bumetanide [Bumex (*)] DAILY 09/24/13 [Last Taken 03/29/18 15:00] Nebivolol HCl [Bystolic 5 mg (*)] DAILY 09/24/13 [Last Taken 03/29/18 23:00] Omeprazole [Prilosec 20 mg] HS 09/24/13 [Last Taken 1 Day Ago ~03/12/18] Potassium Cl [Klor-Con 20 meq (*)] DAILY 09/24/13 [Last Taken 03/29/18 15:00] FLUoxetine [Prozac 20 MG (*)] DAILY 07/14/16 [Last Taken 03/30/18 09:00] Atrovent Hfa (*) BID 12/01/16 [Last Taken 03/29/18 21:00] GABAPENTIN TID 12/01/16 [Last Taken 03/30/18 09:00] Rosuvastatin Calcium HS 12/01/16 [Last Taken 03/29/18 23:00] Allopurinol [Allopurinol 100 MG (*)] BID 06/05/17 [Last Taken 03/30/18 08:00] Beclomethasone Qvar 40 [Qvar 40] BID 06/05/17 [Last Taken 03/29/18 21:00] Aspirin EC 81 mg (*) DAILY 03/12/18 [Last Taken 03/26/18] Dha DAILY 03/12/18 [Last Taken 03/30/18 09:00] Doxycycline Calcium BID 03/12/18 [Last Taken 03/30/18 09:00] Herbals/Supplements -Info Only DAILY 03/12/18 [Last Taken 03/30/18 08:30] - NPO status NPO Status: no food or drink >8 hours NPO Since - Liquids (Date): 03/29/18 NPO Since - Liquids (Time): 21:00 NPO Since - Solids (Date): 03/30/18 - Anes Hx Anes Hx: no prior problems - Smoking Hx Smoking Status: Former smoker - Alcohol Use Alcohol Use: None - Family Anes Hx Family Anes Hx: none Family Hx Anesthesia Complications: none ANE Labs/Vital Signs - Vital Signs Blood Pressure: 130/69 Heart Rate: 65 Respiratory Rate: 17 O2 Sat (%): 93 Height: 175.26 cm Weight: 140.614 kg ANE Physical Exam - Airway Neck exam: decreased ROM Mallampati Score: Class 3 Mouth exam: poor dentition - Pulmonary Pulmonary: no respiratory distress - Cardiovascular Cardiovascular: regular rate and rhythym - ASA Status ASA Status: III ANE Anesthesia Plan Anesthesia Plan: GA w LMA Urgent/Emergent Case: Joellengeena mateusz completed preop but documented later for safe timely pt care
[2018-03-30] MEDS ORDERED: DEXAMETHASONE 4 MG/ML VIAL ONE (14:47)
[2018-03-30] MEDS ORDERED: ONDANSETRON 4 MG/2 ML VIAL ONE ×2 (14:47→16:04)
[2018-03-30] MEDS ORDERED: LR 500 ML IV PRN (15:42)
[2018-03-30] MEDS ORDERED: HYDROCODONE/APAP 5/325 TAB PO PRN (15:42)
[2018-03-30] MEDS ORDERED: NALOXONE HCL 0.4 MG/ML INJ IVP PRN (15:42)
[2018-03-30] MEDS ORDERED: DEXAMETHASONE 4 MG/ML VIAL IVP PRN (15:42)
[2018-03-30] MEDS ORDERED: MEPERIDINE 25 MG/0.5 ML AMP IVP PRN (15:42)
[2018-03-30] MEDS ORDERED: ACETAMINOPHEN 500 MG TAB PO PRN (15:42)
[2018-03-30] MEDS ORDERED: METOCLOPRAMIDE 10 MG/2 ML VIAL IVP PRN (15:42)
[2018-03-30] MEDS ORDERED: ONDANSETRON 4 MG/2 ML VIAL IVP PRN ×2 (15:42→17:58)
[2018-03-30] MEDS ORDERED: PHENYLEPHRINE HCL 100 MCG/ML SYR IVP PRN (15:42)
[2018-03-30] MEDS ORDERED: ALBUTEROL 3 ML DEYVIAL IH PRN (15:42)
[2018-03-30] MEDS ORDERED: oxyCODONE IR 5 MG TAB ONE ×2 (16:03→16:20)
[2018-03-30] MEDS: fentaNYL 100 MCG/2 ML INJ IVP PRN ×3 (16:06→16:37)
[2018-03-30] MEDS: oxyCODONE IR 5 MG TAB PO PRN ×2 (16:15→16:45)
[2018-03-30] MEDS ORDERED: LABETALOL HCL 5 MG/ML 20 ML MDV ONE (16:20)
--- NOTE | 2018-03-30 16:20 | GOP ---
[f rep st] OPERATIVE REPORT DATE OF OPERATION: 03/30/2018 SURGEON: Getachew Emery MD ANESTHESIA: General Dr. Goldsmith. PREOPERATIVE DIAGNOSIS: Left breast carcinoma. POSTOPERATIVE DIAGNOSIS: Left breast carcinoma. PROCEDURE PERFORMED: Left partial mastectomy with axillary sentinel node biopsy. INDICATIONS: 78-year-old female status post prior left breast lumpectomy. Results disclosed an infiltrating lobular carcinoma with positive margins. She is undergoing a margin re-excision with sentinel node sampling at this time. Risks and benefits were explained of bleeding, infection, tumor recurrence, need for additional margin resection, arm edema, nerve injury, as well as indications for completion of axillary dissection. All questions were answered. She desires to proceed. DESCRIPTION OF PROCEDURE: Upon returning for lymphoscintigraphy, general anesthesia was induced. The left breast and axilla were infiltrated with 0.5% Marcaine with epinephrine. A left axillary incision was created. A total of 2 hot mildly firm nodes were identified deep within the axillary fat plane. These measured 3000 and 1000 units on the gamma counter. The background activity was all negligible being less than 100 units. No other palpable adenopathy was present. The axilla was closed in layers with absorbable sutures followed by Dermabond. The breast was reopened through the 3 o'clock transverse incision. Using electrocautery the initial anterior border was completely reexcised from beneath the skin. This ultimately was taken developing the entire prior biopsy cavity. The reexcision cavity was tagged for orientation and sent for permanent processing. Additional anterior, inferior, and posterior margins were subsequently obtained with a stitch designating the final true margins. Satisfactory hemostasis was assured. The defect was closed in layers with absorbable sutures followed by Dermabond. The patient was taken to recovery uneventfully. /[id number]/MODL MTDD
[2018-03-30] MEDS: LABETALOL HCL 5 MG/ML 20 ML MDV IVP PRN ×2 (16:22→16:58)
[2018-03-30] MEDS: OXYCODONE/APAP 5/325 TAB PO PRN (22:16)
[2018-03-31] MEDS: OXYCODONE/APAP 5/325 TAB PO PRN ×2 (02:06→05:56)
--- NOTE | 2018-03-31 08:16 | SOAPPROG ---
SOAP Progress Note Assessment/Plan: Assessment:no overnight complaints. no pain. kept overnight secondary to hypoxia and immobility (recent right ankle injury and minimal home resources/ transport last renay). afebrile. breast and axillary incision clean. no swelling. doing well. home later today. has home PT arranged to start tomorrow. will see back as scheduled Plan: 03/31/18 08:14 Objective: Vital Signs Temp Pulse Resp BP Pulse Ox 36.8 C 76 15 115/55 L 96 03/31/18 05:46 03/31/18 05:46 03/31/18 05:46 03/31/18 05:46 03/31/18 05:46 03/30/18 03/31/18 04/01/18 05:59 05:59 05:59 Intake Total 2530 Output Total 75 Balance 1865 ICD10 Worksheet Patient Problems: Problems Problem Status Onset Arm pain, left Acute Chest pain, rule out acute myocardial infarction Acute Chronic Disease Management/Transitional Care Program Acute Head injury Acute Laceration Acute Nasal fracture Acute
[2018-03-31] MEDS ORDERED: ALLOPURINOL 100 MG TAB PO SCH (09:00)
[2018-03-31] MEDS ORDERED: IPRATROPIUM HFA INHALER IH SCH (09:00)
[2018-03-31] MEDS ORDERED: CHOLECALCIFEROL VIT D3 1,000 UNITS TAB PO SCH (09:00)
[2018-03-31] MEDS ORDERED: POTASSIUM CL 20 MEQ TAB PO SCH (09:00)
[2018-03-31] MEDS ORDERED: MUPIROCIN 2% 22 GM OINT NS SCH (09:00)
[2018-03-31] MEDS ORDERED: DOXYCYCLINE HYCLATE 100 MG CAP/TAB PO SCH (09:00)
[2018-03-31] MEDS ORDERED: PANTOPRAZOLE SODIUM 40 MG TAB PO SCH (09:00)
[2018-03-31] MEDS ORDERED: FLUoxetine 20 MG CAP PO SCH (09:00)
[2018-03-31] MEDS ORDERED: GABAPENTIN 300 MG CAP PO SCH (09:00)
[2018-03-31] MEDS ORDERED: QVAR IH SCH (09:00)
[2018-03-31] MEDS ORDERED: BUMETANIDE 1 MG TAB PO SCH (09:00)
[2018-03-31] MEDS ORDERED: ASPIRIN 81 MG CHEWABLE TAB PO SCH (09:00)
[2018-03-31] MEDS ORDERED: NEBIVOLOL HCL 5 MG TAB PO SCH (09:00)
[2018-03-31] MEDS ORDERED: Herbals/Supplements -Info Only PO SCH (09:00)
[2018-03-31 09:23] VITALS: BP 118/59
--- NOTE | 2018-03-31 09:43 | ASMTLACE ---
LACE Length of stay for Answers: Less than 1 day current admission Acuity / Level of Answers: No Care: Did the patient have an inpatient admission? Comorbidities - select Answers: Any tumor (including all that apply lymphoma or leukemia) Cerebrovascular disease (CVA, TIA, aneurysms, vasc ular dementia) Other Notes: HTN, Sleep apnea, GERD, obesity # of Emergency department Answers: 1-2 visits in the last 6 months Score: 5 Date Signed: 03/31/2018 09:42 AM Electronically Signed By:CRISTA Cook
--- NOTE | 2018-03-31 09:49 | ASDISCHSUM ---
Discharge Information Plan Status:Home with No Needs Medically Cleared to Leave:03/31/2018 Discharge Date:03/31/2018 CM D/C Disposition:Home, Routine, Self-Care ADT D/C Disposition:Home, Routine, Self-Care Projected Discharge Date:03/31/2018 Transportation at D/C:Family Discharge Delay Reason: Follow-Up Date:03/31/2018 Discharge Slot: Final Diagnosis: Placement Information Patient Contact Information Contact Name:LUBNA Relationship:Rox Address:[address] City:[facility] Phone: [facility]/Zip Code:[place] [address] Email: Financial Information Financial Class:Medicare Primary Plan Desc:MEDICARE OUTPATIENT Primary Plan Number:[id number] Secondary Plan Desc:[facility] Secondary Plan Number:[id number] Assessment Information CAGE Questionnaire CAGE Additional Comments Pt misidentified as "not able to participate" in SBIRT; CM not able to connect w/pt before discharge Date Signed: 03/27/2018 06:02 PM Electronically Signed By:Mildred Medel RN LACE LACE Length of stay for Answers: Less than 1 day current admission Acuity / Level of Answers: No Care: Did the patient have an inpatient admission? Comorbidities - select Answers: Any tumor (including all that apply lymphoma or leukemia) Cerebrovascular disease (CVA, TIA, aneurysms, vasc ular dementia) Other Notes: HTN, Sleep apnea, GERD, obesity # of Emergency department Answers: 1-2 visits in the last 6 months Score: 5 Date Signed: 03/31/2018 09:42 AM Electronically Signed By:CRISTA Cook Case Management Discharge Plan Note Case Management Discharge Discharge Order Complete? Answers: Yes Patient to Obtain Answers: via Family Medications Transportation Arranged Answers: Family/Friends Family Notified Answers: Yes Discharge Comments Notes: Pt is s/p L partial lumpectomy with bx 03/13/18. She was re-admitted yesterday observation status and is s/p a margin re-excision and bx. She was kept overnight 2/2 hypoxemia and for pain control. She is discharging home today with her and no CM needs. Date Signed: 03/31/2018 09:48 AM Electronically Signed By:CRISTA Cook Intervention Information
[2018-03-31] MEDS ORDERED: MULTIVITAMINS 1 EACH TAB PO SCH (12:00)
[2018-03-31] MEDS ORDERED: GABAPENTIN 100 MG CAP PO SCH (12:00)
[2018-03-31] MEDS ORDERED: ROSUVASTATIN CALCIUM 10 MG TAB PO SCH (21:00)
--- NOTE | 2018-04-03 22:30 | POSTANESTH ---
Post Anesthetic Evaluation Cardiovascular Status: Normal, Stable Respiratory Status: Normal, Stable Level of Consciousness/Mental Status: Can Participate in Eval Pain Control: Adequate, Prn Tx Ordered Nausea/Vomiting Control: Adequate, Prn Tx Ordered Complications Possibly Related to Anesthesia: None Noted
== END 2018-03-31 10:20 | disposition home or self-care (01) ==
LOC: FSGY 11:31 → F1N 17:33
PROVIDERS: ADMIT Surgery; ATTEND Surgery
PROC: 07B60ZX Excision of Left Axillary Lymphatic, Open Approach, Diagnostic (ICD-10-PCS; principal; 2018-03-30 14:00)
PROC: 0HBU0ZZ Excision of Left Breast, Open Approach (ICD-10-PCS; principal; 2018-03-30 14:00)
DX: C50.512 Malignant neoplasm of lower-outer quadrant of left female breast (principal)
CPT/HCPCS: 19302; 78195; A9520; J1100; J2001; J2405; J2704; J3010

== ENCOUNTER 2018-04-20 07:38 | Day surgery (SDC) | payer OTHER ==
[2018-04-20] MEDS ORDERED: LR 1,000 ML IV ONE (07:56)
[2018-04-20] MEDS ORDERED: VANCOMYCIN PHARMACY TO DOSE MISC ONE (07:56)
[2018-04-20] MEDS ORDERED: VANCOMYCIN 2 GM in D5W 500 ML IV ONE (08:30)
[2018-04-20] MEDS ORDERED: LIDOCAINE 1% 300 MG/30 ML SDV ONE (08:57)
[2018-04-20] MEDS ORDERED: BUPIVACAINE 0.5% 30 ML SDV ONE (08:58)
[2018-04-20] MEDS ORDERED: fentaNYL 100 MCG/2 ML INJ ONE ×3 (09:20→10:29)
[2018-04-20] MEDS ORDERED: PROPOFOL/EMULSION 500 MG/50 ML BOTTLE IV ONE (09:20)
[2018-04-20] MEDS ORDERED: LIDOCAINE 2% 100 MG/5 ML SYR ONE (09:25)
--- NOTE | 2018-04-20 09:44 | PDANEPAE ---
ANE Past Medical History - Cardiovascular History Hx Hypertension: Yes Hx Arrhythmias: No Hx Chest Pain: No Hx Coronary Artery / Peripheral Vascular Disease: No Hx CHF / Valvular Disease: Yes Hx Palpitations: No Cardiovascular History Comment: chf. high chol. followed by dr contreras - Pulmonary History Hx COPD: No Hx Asthma/Reactive Airway Disease: No Hx Recent Upper Respiratory Infection: No Hx Oxygen in Use at Home: Yes O2 in Use at Home (L/minute): 2L Hx Sleep Apnea: No Sleep Apnea Screening Result - Last Documented: Positive Pulmonary History Comment: carlos positive uses cpap- instructed pt to bring. sob easily - Neurologic History Hx Cerebrovascular Accident: Yes Hx Seizures: No Hx Dementia: No Neurologic History Comment: tia 20 yrs ago. cervical radiculopathy. lumbar stenosis - Endocrine History Hx Diabetes: No - Renal History Hx Renal Disorders: Yes Renal History Comment: "leaking" - Liver History Hx Hepatic Disorders: No - Neurological & Psychiatric Hx Hx Neurological and Psychiatric Disorders: No - Cancer History Hx Cancer: No - Congenital Disorder History Hx Congenital Disorders: No - GI History Hx Gastrointestinal Disorders: Yes Gastrointestinal History Comment: GERD - Other Health History Other Health History: upper partial - Chronic Pain History Chronic Pain: Yes (lower back) - Surgical History Prior Surgeries: 03/30/18 LEFT SENTINEL NODE BX, RE-EXCISION OF PARTIAL MASTECTOMY WITH ASCENCIO. 03/13/18 LEFT BREAST BX WITH ASCENCIO. 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 right AFSHIN 2007 and 2008- psueomondus and staph, abx spacer and second replacement done. bilateral TKA's. lauren. tonsillectomy. left ankle compound fx repair ANE Review of Systems Review of Systems: - Exercise capacity METS (RN): 2 METS ANE Patient History - Allergies Allergies/Adverse Reactions: amoxicillin Allergy (Verified 04/19/18 17:51) rash, itching, sob - Home Medications Home Medications: Allopurinol [Allopurinol 100 MG (*)] BID 03/30/18 [Last Taken 04/20/18] Aspirin [Aspirin 81mg (*)] DAILY 03/30/18 [Last Taken 04/19/18] Bumetanide [Bumex (*)] DAILY 03/30/18 [Last Taken 04/19/18] Cholecalciferol Vit D3 [Vitamin D3 (*)] DAILY 03/30/18 [Last Taken 04/20/18] Doxycycline Hyclate [Vibramycin 100 MG (*)] BID 03/30/18 [Last Taken 04/20/18] FLUoxetine [Prozac 20 MG (*)] DAILY 03/30/18 [Last Taken 04/20/18] Gabapentin [Neurontin 300 MG (*)] BID 03/30/18 [Last Taken 04/20/18] Herbals/Supplements -Info Only 03/30/18 [Last Taken 04/20/18] Ipratropium [Atrovent Hfa (*)] BID 03/30/18 [Last Taken 04/20/18] Multivitamins [Multivitamin (*)] 03/30/18 [Last Taken 04/19/18] Mupirocin 2% [Bactroban 2% Nasal (RX)] 03/30/18 [Last Taken 03/30/18] Nebivolol HCl [Bystolic 5 mg (*)] DAILY 03/30/18 [Last Taken 04/20/18] Omeprazole HS 03/30/18 [Last Taken 04/19/18] Potassium Cl [Klor-Con 20 meq (*)] DAILY 03/30/18 [Last Taken 04/19/18] Qvar Inhaler BID 03/30/18 [Last Taken 04/20/18] Rosuvastatin Calcium [Crestor] HS 03/30/18 [Last Taken 04/19/18] Percocet 10-325 mg Tablet Q4H PRN 04/19/18 [Last Taken 04/20/18] Stool Softener 04/19/18 [Last Taken 04/19/18] - NPO status NPO Since - Liquids (Date): 04/20/18 NPO Since - Liquids (Time): 06:15 NPO Since - Solids (Date): 04/19/18 NPO Since - Solids (Time): 23:55 - Smoking Hx Smoking Status: Former smoker - Family Anes Hx Family Hx Anesthesia Complications: none ANE Labs/Vital Signs - Labs Result Diagrams: 04/20/18 08:30 - Vital Signs Blood Pressure: 137/80 Heart Rate: 61 Respiratory Rate: 18 O2 Sat (%): 93 Height: 175.26 cm Weight: 140.614 kg ANE Physical Exam - Airway Neck exam: FROM, decreased ROM Mallampati Score: Class 3 Mouth exam: small mouth opening - Pulmonary Pulmonary: no respiratory distress - Cardiovascular Cardiovascular: regular rate and rhythym - ASA Status ASA Status: III ANE Anesthesia Plan Anesthesia Plan: MAC Total IV Anesthesia: Yes
--- NOTE | 2018-04-20 09:52 | POSTOPPROG ---
Post Op Note Date of Operation: 04/20/18 Surgeon: Tayler Maravilla Anesthesiologist: tony Anesthesia: IV Sedation Pre-op Diagnosis: traumatic wound RLE Post-op Diagnosis: same Indication: 78 yo with traumatic wound rle Procedure: debride skin soft tissue to tendon Findings: 4x3.5x1 Inf/Abcess present in the surg proc area at time of surgery?: Yes Depth: Superfical (Skin SQ) EBL: Minimal
--- NOTE | 2018-04-20 09:55 | PDIAF ---
- Diagnosis Diagnosis: traumatic wound RLE Code Status: Full Code - Medication Management Discharge Medications: Medications to Continue on Transfer Allopurinol [Allopurinol 100 MG (*)] BID 03/30/18 [Last Taken 04/20/18] Aspirin [Aspirin 81mg (*)] DAILY 03/30/18 [Last Taken 04/19/18] Bumetanide [Bumex (*)] DAILY 03/30/18 [Last Taken 04/19/18] Cholecalciferol Vit D3 [Vitamin D3 (*)] DAILY 03/30/18 [Last Taken 04/20/18] Doxycycline Hyclate [Vibramycin 100 MG (*)] BID 03/30/18 [Last Taken 04/20/18] FLUoxetine [Prozac 20 MG (*)] DAILY 03/30/18 [Last Taken 04/20/18] Gabapentin [Neurontin 300 MG (*)] BID 03/30/18 [Last Taken 04/20/18] Herbals/Supplements -Info Only 03/30/18 [Last Taken 04/20/18] Ipratropium [Atrovent Hfa (*)] BID 03/30/18 [Last Taken 04/20/18] Multivitamins [Multivitamin (*)] 03/30/18 [Last Taken 04/19/18] Mupirocin 2% [Bactroban 2% Nasal] 03/30/18 [Last Taken 03/30/18] Nebivolol HCl [Bystolic 5 mg (*)] DAILY 03/30/18 [Last Taken 04/20/18] Omeprazole HS 03/30/18 [Last Taken 04/19/18] Potassium Cl [Klor-Con 20 meq (*)] DAILY 03/30/18 [Last Taken 04/19/18] Qvar Inhaler BID 03/30/18 [Last Taken 04/20/18] Rosuvastatin Calcium [Crestor] HS 03/30/18 [Last Taken 04/19/18] Percocet 10-325 mg Tablet Q4H PRN 04/19/18 [Last Taken 04/20/18] Stool Softener 04/19/18 [Last Taken 04/19/18] Discharge Medications: Refer to the Discharge Home Medication list for PRN reason. - Orders Services needed: Home Care, Registered Nurse Home Care Face to Face: I certify that this patient was under my care and that I had the required [id number] encounter meeting the encounter requirements on the discharge day. My findings support the fact that the patient is homebound as defined in Home Care Face to Face Continued: CMS Chapter 7 Medicare Benefits Manual 30.1.1 , The condition of the patient is such that there exists a normal inability to leave home and consequently, leaving home would require a considerable and taxing effort. Isolation Type: Contact Isolation Diet Recommendation: no restrictions on diet Wound Care Instructions: change wound vac 3x per week Activity/Weight Bearing Restrictions: per dr epperson Additional Instructions: I will place Wound vac in pacu Home care to change 3x per week - Follow Up Care Current Providers and Referrals: Gary Bush MD [Primary Care Provider] - Tayler Maravilla MD [Medical Doctor] - (either at wound center in 10-14 days or at my office)
[2018-04-20] MEDS ORDERED: HYDROmorphONE/DILAUDID 2 MG/ML INJ ONE (09:59)
[2018-04-20] MEDS ORDERED: ONDANSETRON 4 MG/2 ML VIAL IVP PRN (10:00)
[2018-04-20] MEDS ORDERED: ALBUTEROL 3 ML DEYVIAL IH PRN (10:00)
[2018-04-20] MEDS ORDERED: NALOXONE HCL 0.4 MG/ML INJ IVP PRN (10:00)
--- NOTE | 2018-04-20 10:01 | POSTANESTH ---
Post Anesthetic Evaluation Cardiovascular Status: Similar to Pre-Op Cond Respiratory Status: Similar to Pre-op Cond. Level of Consciousness/Mental Status: Mildly Sleepy, Arousable Pain Control: Inadeq, Add Tx Required Nausea/Vomiting Control: Adequate, Prn Tx Ordered Complications Possibly Related to Anesthesia: None Noted
[2018-04-20] MEDS: fentaNYL 100 MCG/2 ML INJ IVP PRN ×2 (10:06→10:17)
[2018-04-20] MEDS ORDERED: oxyCODONE IR 5 MG TAB PO PRN (10:08)
[2018-04-20] MEDS: HYDROmorphONE/DILAUDID 2 MG/ML INJ IVP PRN ×2 (10:09→10:19)
[2018-04-20] MEDS ORDERED: oxyCODONE IR 5 MG TAB ONE (10:29)
[2018-04-20 11:40] VITALS: BP 140/72
--- NOTE | 2018-04-21 10:07 | GOP ---
[f rep st] OPERATIVE REPORT DATE OF OPERATION: 04/20/2018 SURGEON: Tayler Maravilla MD ANESTHESIA: IV sedation. ANESTHESIOLOGIST: Kole Domínguez MD PREOPERATIVE DIAGNOSIS: Traumatic wound, right lower extremity. POSTOPERATIVE DIAGNOSIS: Traumatic wound, right lower extremity. PROCEDURE PERFORMED: Debridement skin soft tissue to the level of fascia, and application of negativ e pressure wound therapy. FINDINGS: The wound measures 4 x 3.5 x 1 cm. It is in the shape of a comma. INDICATIONS: The patient is a 78-year-old woman who injured her leg while getting out of a truck. T he wound appeared superficial. She had had it for quite some time and [facility] When I examined her, I noted an area of eschar indicating lack of blood flow, and I probed the area and found that the wound was much larger than apparent on the surface, with re tained hematoma. We discussed performing excision in the office versus the operating room. Due to t he pain, we elected for operative intervention. DESCRIPTION OF PROCEDURE: The patient was brought into the operating room, placed supine on the tabl e. Monitored anesthesia care with IV sedation was performed. I infiltrated the area with 0.5% Jermaine ine mixed with 1% lidocaine. I initially made an ellipse of tissue around the area of injury and ángel cuated a large amount of hematoma. I found that the wound tracked in several directions, and so I co ntinued opening up the wound until I encountered healthy tissue. I performed copious irrigation. Th e wound was down to the depth of the fascia. The wound measures 4 x 3.5 x 1 cm deep. Negative press ure wound therapy was applied. She tolerated the procedure well. /[id number]/MODL
== END 2018-04-20 11:30 | disposition home health service (06) ==
LOC: FSGY 07:38
PROVIDERS: ATTEND Surgery
PROC: 0JBN0ZZ Excision of Right Lower Leg Subcutaneous Tissue and Fascia, Open Approach (ICD-10-PCS; principal; 2018-04-20 09:15)
DX: S81.801A Unspecified open wound, right lower leg, initial encounter (principal); W17.89XA Other fall from one level to another, initial encounter
CPT/HCPCS: J1170; J2001; J2704; J3010; J3370

== ENCOUNTER 2018-05-14 13:33 | Inpatient (IN) | payer OTHER ==
--- NOTE | 2018-05-14 14:49 | CPEKG ---
Heart Rate: 78 RR Interval: 769 P-R Interval: 176 QRSD Interval: 84 QT Interval: 364 QTC Interval: 415 P [place]: 54 QRS [place]: 55 T Wave [place]: 249 EKG Severity - ABNORMAL ECG - EKG Impression: SINUS RHYTHM EKG Impression: NONSPECIFIC T ABNORMALITIES, LATERAL LEADS Electronically Signed By: Mino Villalta 15-May-2018 16:27:52
[2018-05-14] MEDS ORDERED: VANCOMYCIN HCL/NORMAL SALINE 250 ML IV ONE (14:59)
--- NOTE | 2018-05-14 15:04 | EDPHY ---
H & P Time Seen by Provider: 05/14/18 14:38 HPI/ROS: CHIEF COMPLAINT: Weakness, shortness of breath HISTORY OF PRESENT ILLNESS: The patient is a 78-year-old female with multiple medical problems. She has recently been treated for a right lower extremity MRSA infection. She has a wound VAC in place. She is currently taking doxycycline. Patient states that she was doing well. However, this morning she had increased shortness of breath and fatigue. Home health nurse reported fever. She has had no cough. She normally uses CPAP at night but no oxygen at baseline. She does note that she started hormone replacement therapy yesterday for breast cancer. She had her breast mass removed on 03/30/2018. She is followed by Dr. Getachew Emery and Dr. Barbra Emery. REVIEW OF SYSTEMS: My complete review of systems is negative except as mentioned in the HPI. Past Medical/Surgical History: Includes MRSA, CHF, hypertension, breast cancer, gout, sleep apnea Past surgical history: Includes cholecystectomy, knee surgery, hip replacement , breast biopsy Social history: Patient lives at home. She has a home health nurse. Smoking Status: Former smoker Physical Exam: 37.1, 104/57, 82, 22, 89% on room air GENERAL: No acute distress, alert. Obese HEENT: Eyes normal to inspection, normal pharynx, no signs of dehydration. NECK: No thyromegaly, no lymphadenopathy, supple. RESPIRATORY: Clear to auscultation bilaterally, no rales, rhonchi or wheezing. CVS: Regular rate and rhythm, no rubs, murmurs, or gallops. ABDOMEN: Soft, nontender, nondistended, no organomegaly. BACK: Normal to inspection, no CVA tenderness. SKIN: Normal color, no rash, warm, dry. No pallor. EXTREMITIES: Patient has significant right lower extremity erythema. This extends up to the medial lateral thigh. The right lateral ankle wound VAC is in place. Bilateral pedal edema. NEURO/PSYCH: Alert and oriented x3, normal mood and affect, normal motor sensory exam. No obvious cranial nerve deficit. Constitutional: Initial Vital Signs Temperature (C) 37.1 C 05/14/18 13:40 Heart Rate 82 05/14/18 13:40 Respiratory Rate 22 H 05/14/18 13:40 Blood Pressure 104/57 L 05/14/18 13:40 O2 Sat (%) 89 L 05/14/18 13:40 O2 Delivery Mode Nasal Cannula O2 (L/minute) 2 Allergies/Adverse Reactions: amoxicillin Allergy (Verified 04/19/18 17:51) rash, itching, sob Home Medications: Medication Instructions Recorded Allopurinol [Allopurinol 100 MG 200 mg PO BID 03/30/18 (*)] Aspirin [Aspirin 81mg (*)] 81 mg PO DAILY 03/30/18 Bumetanide [Bumex (*)] 1 mg PO DAILY 03/30/18 Cholecalciferol Vit D3 [Vitamin D3 1,000 units PO DAILY 03/30/18 (*)] Doxycycline Hyclate [Vibramycin 100 mg PO BID 03/30/18 100 MG (*)] FLUoxetine [Prozac 20 MG (*)] 20 mg PO DAILY 03/30/18 Gabapentin [Neurontin 300 MG (*)] 300 mg PO BID 03/30/18 Herbals/Supplements -Info Only 1 ea PO DAILY 03/30/18 Ipratropium [Atrovent Hfa (*)] 1 inh PO BID 03/30/18 Multivitamins [Multivitamin (*)] 1 tab PO DAILY 03/30/18 Nebivolol HCl [Bystolic 5 mg (*)] 5 mg PO DAILY 03/30/18 Omeprazole 40 mg PO HS 03/30/18 Potassium Cl [Klor-Con 20 meq (*)] 20 meq PO BID 03/30/18 Rosuvastatin Calcium [Crestor] 5 mg PO HS 03/30/18 Anastrozole [Arimidex 1 mg (*)] 1 mg PO DAILY 05/14/18 Beclomethasone Qvar 80 [Qvar 80 1 inh IH BID 05/14/18 Redihaler (*)] Indomethacin [Indocin 25 mg (*)] 25 mg PO 05/14/18 oxyCODONE/APAP 5/325 [Percocet 1 tab PO 05/14/18 5/325 (*)] Medical Decision Making - Diagnostics Imaging Results: Imaging Impressions Chest X-Ray 05/14/18 14:58 Impression: 1. Congestive heart failure, query pending pulmonary edema. 2. Suspect airways disease. 3. See above report for additional findings. Extremity Venous Study 05/14/18 15:06 Impression: Negative limited exam. No evidence of acute deep venous thrombosis. Findings discussed with Emergency Department physician, Lina Garzon M.D. , on May 14, 2018 at 1623. ED Course/Re-evaluation: In the emergency department I discussed possible etiologies with the patient and son. I answered all her questions. IV was placed. Laboratory studies including cultures, EKG, chest x-ray were ordered. EKG shows normal sinus rhythm, normal rate, normal axis, normal intervals. There are no ST or T-wave abnormalities. EKG is normal as interpreted by me. Patient was noted to have an elevated lactic acid at 2.3. Patient's P it was 7.4, 36, 23 (venous). The troponin was up at 0.29. BNP 4100. Patient was given normal saline 500 mL IV. I do not perform a 30 milliliter/ kilogram bolus because the patient has a history of CHF and elevated BNP. I felt this fluid should be given slowly to ensure that the patient does not have worsening respiratory status. I discussed case with Dr. Duarte. She will with the patient. Patient's bed was upgraded Patient's chemistry panel is unremarkable. White count was normal at 4. Patient was anemic with hematocrit 33. Differential Diagnosis: My differential includes but is not limited to ACS, acute VA, CHF, cellulitis, DVT, bacteremia, sepsis - Data Points Laboratory Results: Laboratory Results 05/14/18 15:15 05/14/18 15:07 05/14/18 05/14/18 05/14/18 15:15 15:15 15:15 WBC 4.89 10^3/uL 10^3/uL (3.80-9.50) RBC 3.55 10^6/uL L 10^6/uL (4.18-5.33) Hgb 11.0 g/dL L g/dL (12.6-16.3) Hct 33.9 % L % (38.0-47.0) MCV 95.5 fL fL (81.5-99.8) MCH 31.0 pg pg (27.9-34.1) MCHC 32.4 g/dL g/dL (32.4-36.7) RDW 14.6 % % (11.5-15.2) Plt Count 126 10^3/uL L 10^3/uL (150-400) MPV 10.5 fL fL (8.7-11.7) Neut % (Auto) 89.6 % H % (39.3-74.2) Lymph % (Auto) 5.3 % L % (15.0-45.0) Peach % (Auto) 4.3 % L % (4.5-13.0) Eos % (Auto) 0.2 % L % (0.6-7.6) Baso % (Auto) 0.2 % L % (0.3-1.7) Nucleat RBC Rel Count 0.0 % % (0.0-0.2) Absolute Neuts (auto) 4.38 10^3/uL 10^3/uL (1.70-6.50) Absolute Lymphs (auto) 0.26 10^3/uL L 10^3/uL (1.00-3.00) Absolute Monos (auto) 0.21 10^3/uL L 10^3/uL (0.30-0.80) Absolute Eos (auto) 0.01 10^3/uL L 10^3/uL (0.03-0.40) Absolute Basos (auto) 0.01 10^3/uL L 10^3/uL (0.02-0.10) Absolute Nucleated RBC 0.00 10^3/uL 10^3/uL (0-0.01) Immature Gran % 0.4 % % (0.0-1.1) Immature Gran # 0.02 10^3/uL 10^3/uL (0.00-0.10) Platelet Estimate Pending PT 14.9 SEC SEC (12.0-15.0) INR 1.15 (0.83-1.16) APTT 26.3 SEC SEC (23.0-38.0) POC Blood Source Patient Temperature POC VBG pH POC VBG pCO2 POC VBG pO2 POC VBG HCO3 POC VBG Total CO2 POC VBG Base Excess VBG Lactic Acid 2.2 mmol/L H mmol/L (0.7-2.1) POC Mix VBG O2 Sat Sodium Potassium Chloride Carbon Dioxide Anion Gap BUN Creatinine Estimated GFR Glucose POC Lactic Acid Odin Calcium Total Bilirubin Conjugated Bilirubin Unconjugated Bilirubin AST ALT Alkaline Phosphatase POC Troponin I NT-Pro-B Natriuret Pep Total Protein Albumin Lipase 05/14/18 05/14/1805/14/18 15:12 15:11 15:07 WBC RBC Hgb Hct MCV MCH MCHC RDW Plt Count MPV Neut % (Auto) Lymph % (Auto) Peach % (Auto) Eos % (Auto) Baso % (Auto) Nucleat RBC Rel Count Absolute Neuts (auto) Absolute Lymphs (auto) Absolute Monos (auto) Absolute Eos (auto) Absolute Basos (auto) Absolute Nucleated RBC Immature Gran % Immature Gran # Platelet Estimate PT INR APTT POC Blood Source VENOUS Patient Temperature 37.1 DEGREES DEGREES POC VBG pH 7.43 H (7.31-7.42) POC VBG pCO2 36 mmHg L mmHg (40-44) POC VBG pO2 23 mmHg L mmHg (35-40) POC VBG HCO3 24 mEq/L mEq/L (22-26) POC VBG Total CO2 25 mEq/L mEq/L (21-27) POC VBG Base Excess 0.0 mEq/L mEq/L (-2.5-2.5) VBG Lactic Acid POC Mix VBG O2 Sat 42 % L % (65-75) Sodium 143 mEq/L mEq/L (135-145) Potassium 4.4 mEq/L mEq/L (3.3-5.0) Chloride 105 mEq/L mEq/L (97-110) Carbon Dioxide 23 mEq/l mEq/l (22-31) Anion Gap 15 mEq/L mEq/L (8-16) BUN 20 mg/dL mg/dL (7-23) Creatinine 1.0 mg/dL mg/dL (0.6-1.0) Estimated GFR 53 Glucose 144 mg/dL H mg/dL (70-100) POC Lactic Acid Odin 3.3 mmol/L H mmol/L (0.7-2.1) Calcium 9.4 mg/dL mg/dL (8.5-10.4) Total Bilirubin 1.0 mg/dL mg/dL (0.1-1.4) Conjugated Bilirubin 0.6 mg/dL H mg/dL (0.0-0.5) Unconjugated Bilirubin 0.4 mg/dL mg/dL (0.0-1.1) AST 45 IU/L IU/L (14-46) ALT 34 IU/L IU/L (9-52) Alkaline Phosphatase 71 IU/L IU/L (38-126) POC Troponin I 0.29 ng/mL H ng/mL (0.00-0.08) NT-Pro-B Natriuret Pep 4150 pg/mL H pg/mL (0-450) Total Protein 7.1 g/dL g/dL (6.3-8.2) Albumin 3.9 g/dL g/dL (3.5-5.0) Lipase 82 IU/L IU/L (23-300) 05/14/18 15:07 WBC REJ RBC REJ Hgb REJ Hct REJ MCV REJ MCH REJ MCHC REJ RDW REJ Plt Count REJ MPV REJ Neut % (Auto) REJ Lymph % (Auto) REJ Peach % (Auto) REJ Eos % (Auto) REJ Baso % (Auto) REJ Nucleat RBC Rel Count REJ Absolute Neuts (auto) REJ Absolute Lymphs (auto) REJ Absolute Monos (auto) REJ Absolute Eos (auto) REJ Absolute Basos (auto) REJ Absolute Nucleated RBC REJ Immature Gran % REJ Immature Gran # REJ Platelet Estimate PT INR APTT POC Blood Source Patient Temperature POC VBG pH POC VBG pCO2 POC VBG pO2 POC VBG HCO3 POC VBG Total CO2 POC VBG Base Excess VBG Lactic Acid POC Mix VBG O2 Sat Sodium Potassium Chloride Carbon Dioxide Anion Gap BUN Creatinine Estimated GFR Glucose POC Lactic Acid Odin Calcium Total Bilirubin Conjugated Bilirubin Unconjugated Bilirubin AST ALT Alkaline Phosphatase POC Troponin I NT-Pro-B Natriuret Pep Total Protein Albumin Lipase Medications Given: Discontinued Medications Vancomycin/Sodium Chloride (Vancomycin 1 Gm (Premix)) 250 mls @ 250 mls/hr IV EDNOW ONE PRN Reason: Protocol Stop: 05/14/18 15:58 Last Admin: 05/14/18 15:27 Dose: 250 mls Sodium Chloride (Ns) 500 mls @ 0 mls/hr IV ONCE ONE PRN Reason: Wide Open Stop: 05/14/18 15:59 Last Admin: 05/14/18 16:00 Dose: 500 mls Point of Care Test Results: Chemistry 05/14/18 15:12 POC Troponin I 0.29 ng/mL H ng/mL (0.00-0.08) Blood Gas/Lactic Acid-Arterial 05/14/18 15:11 POC Blood Source VENOUS Blood Gas/Lactic Acid-Venous 05/14/18 15:11 POC VBG pH 7.43 H (7.31-7.42) POC VBG pCO2 36 mmHg L mmHg (40-44) POC VBG pO2 23 mmHg L mmHg (35-40) POC VBG HCO3 24 mEq/L mEq/L (22-26) POC VBG Total CO2 25 mEq/L mEq/L (21-27) POC VBG Base Excess 0.0 mEq/L mEq/L (-2.5-2.5) POC Mix VBG O2 Sat 42 % L % (65-75) POC Lactic Acid Odin 3.3 mmol/L H mmol/L (0.7-2.1) Departure - Departure Disposition: [facility] Inpatient Acute Clinical Impression: Fever Qualifiers: Fever type: unspecified Qualified Code(s): R50.9 - Fever, unspecified Cellulitis Qualifiers: Site of cellulitis: extremity Site of cellulitis of extremity: lower extremity Laterality: right Qualified Code(s): L03.115 - Cellulitis of right lower limb Condition: Good
[2018-05-14 15:47] LABS: INR 1.15 (0.83-1.16); PROTIME(PATIENT) 14.9 SEC (12.0-15.0)
[2018-05-14] MEDS ORDERED: NS 500 ML IV ONE (15:58)
[2018-05-14 16:40] LABS: PLATELET COUNT 126 10^3/uL (150-400)
[2018-05-14] MEDS ORDERED: FUROSEMIDE 40 MG/4 ML VIAL IVP ONE (17:01)
[2018-05-14] MEDS ORDERED: ONDANSETRON 4 MG/2 ML VIAL IVP PRN (17:09)
[2018-05-14] MEDS: IPRATROPIUM/ALBUTEROL 3 ML DEYVIAL IH SCH ×2 (17:34→23:21)
--- NOTE | 2018-05-14 17:54 | GHP ---
[f rep st] HISTORY AND PHYSICAL DATE OF ADMISSION: 05/14/2018 CHIEF COMPLAINT: Right leg redness. HISTORY OF PRESENT ILLNESS: The patient is a 78-year-old female who sustained an ankle fracture on . She was put in a walking boot. The boot caused an ulceration on the lateral part of the ank le. This required debridement by Dr. Socorro Maravilla on April 20. She now has a wound VAC in place. Cuca liriano had been recovering very well. She was cleared by Orthopedic Surgery for weightbearing as tolerate d. As of last night, she was getting around ambulating and overall her status was improving daily. This morning her [id number] came to visit and immediately noticed that her right leg was newly r ed. Since she first saw it this morning, it has rapidly extended up her leg. It is much worse than it was even just an hour ago. She is already on doxycycline for a history of MRSA and follows with Pat Gunn. She has new onset shortness of breath since this morning as well. As of yesterday, she was ambulating independently, but as of this morning, it took multiple people 30 minute just to get her to the toilet. Initially, she denied chest pain, but she is somewhat confused and a poor historian. Later on, when she said she was hurting, she told me she was hurting all over and then said it was i n her chest. PAST MEDICAL HISTORY: 1. Morbid obesity. 2. Obstructive sleep apnea and obesity hypoventilation syndrome on CPAP at night. She does not wear daytime oxygen. 3. Pulmonary hypertension. 4. Spinal stenosis. 5. Congestive heart failure, secondary to diastolic dysfunction. 6. Breast cancer. PAST SURGICAL HISTORY: Hip replacement, knee replacement, cholecystectomy. MEDICATIONS: Please see computer record for full detailed list. ALLERGIES: Amoxicillin. SOCIAL HISTORY: She smoked a pack per day for 20 years, but quit 20 years ago. She drinks 1 alcohol ic beverage per night. She lives with her . Her recently travel to [place] for a fam donald reunion. He is typically her caregiver. REVIEW OF SYSTEMS: Complete review of systems obtained. Review of systems negative regarding consti tutional, HEENT, GI, pulmonary, vascular, , hematology, skin, musculoskeletal, endocrine, psych, ex cept for positives and negatives as in HPI. FAMILY HISTORY: Reviewed, noncontributory to presenting complaint. PHYSICAL EXAMINATION: GENERAL: This is a well developed, well nourished, morbidly obese female in m oderate respiratory distress. She is confused and appears quite ill. VITAL SIGNS: Temp is 37.1, pu lse 84, respirations 24, blood pressure 123/77, saturating 89% on room air. HEENT: Eyes: Normal co njunctivae. Pupils reactive to light. ENT: Normal ears, nose. Hearing intact. Normal teeth. Miguel pharynx is dry. NECK: Trachea midline. No thyromegaly. CHEST: Increased respiratory effort. RETA GS: Bibasilar rales. No wheeze. CARDIOVASCULAR: Regular rhythm. No murmur. 2+ lower extremity e cristina on the left, much more on the right associated with erythema and cellulitis. ABDOMEN: Soft, ob nelia, nontender. No hepatomegaly. SKIN: Right lower extremity ulceration, wound VAC has been remove d with ulceration in place. Erythema extends up above the knee with deep warmth and pain with palpat ion. MUSCULOSKELETAL: No cyanosis, clubbing. Strength 5/5 upper and lower extremities. NEUROLOGIC : Cranial nerves intact. Normal sensation to light touch. PSYCH: Awake, alert. Poor historian. Poor memory. Most of the history is taken from the [id number] who is at bedside. The patient c annot detail recent events. ASSESSMENT/PLAN: 1. Severe right lower extremity cellulitis stemming from a leg wound, which is recently been debride d and had a wound VAC in place. She has a history of methicillin-resistant Staphylococcus aureus and is on doxycycline prescribed by Dr. Gunn. For now, will prescribe intravenous vancomycin and intrav enous clindamycin. We will demarcate the edge of cellulitis and follow closely for worsening. I hav e consulted Surgery, Dr. Mullins is special education professor for Dr. Maravilla and they will consult. 2. Lactic acid elevation. She did get intravenous fluid bolus in the emergency room. She, however, does appear to be in pulmonary edema so I am hesitant to give her any more fluid. Will follow lacta te very closely. She may need further fluid boluses if lactate remained elevated. 3. Acute on chronic diastolic congestive heart failure with acute respiratory failure. She had a fl uid bolus, but now, I will give her an IV Lasix dose x1 as I am worried she will go into worsening re spiratory failure as her fluid status is very tenuous. We will check an echocardiogram. 4. Borderline troponin elevation. This is probably due to strain of infection. Will follow seriall y. 5. Morbid obesity with obesity hypoventilation syndrome and obstructive sleep apnea. Continue CPAP at night. 6. Metabolic encephalopathy. She presents quite confused. I suspect this is due to infection. I w ould definitely consider ABG if her condition worsens. 7. Pulmonary hypertension and cor pulmonale, secondary to obesity hyperventilation syndrome/obstruct osiris sleep apnea. She is volume up on presentation. As discussed above, the balance between administ ering intravenous fluid and intravenous Lasix will be difficult problem. 8. Recent diagnosis of breast cancer. We will continue Arimidex. CODE STATUS: Full. ADMISSION STATUS: Will admit to inpatient. She is critically ill on presentation. Anticipate great er than 2 midnights. DEEP VENOUS THROMBOSIS PROPHYLAXIS: Will be subcu Lovenox. CRITICAL CARE TIME SPENT: 1 hour. /[id number]/MODL
[2018-05-14] MEDS: BECLOMETHASONE QVAR 80 REDIHALER 120 INH/10.6 GM MDI IH SCH (21:03)
--- NOTE | 2018-05-14 21:10 | GCON ---
[f rep st] CONSULTATION DATE OF CONSULTATION: 05/14/2018 CHIEF COMPLAINT: Right lower extremity cellulitis. HISTORY OF PRESENT ILLNESS: A 78-year-old female, who briefly sustained an ankle fracture on the rig ht side on March 27. She was subsequently put in a walking boot which caused an ulceration on the lat eral portion of the ankle. This was managed initially conservatively. She was ultimately seen in [facility] wound care clinic by my partner Dr. Maravilla, and ultimately taken to the operating room on the w here this was debrided. Since that time, a wound VAC has stayed in place, and the patient has contin ued to be seen in the wound care clinic, and the wound continues to shrink, albeit somewhat slowly. At any rate, she was feeling well per her son's report last night in her usual state of health. She was mentating well. Her son and [id number] were actually over today and noticed that her mental status was changing and that she had some increasing cellulitis on her right lower extremity. She h ad been treated on an outpatient basis for MRSA from the wound and had been on doxycycline, but becau se of the worsening appearance and mental status, as well as a low blood pressure taken by the wound care nurse who changed the wound VAC today, she was brought to the emergency department. In the [facility] department, the cellulitis progressed. Her mental status worsened and she was subsequently adm itted to the medical service. The remainder of the history and physical is obtained via interviews f rom her son, [id number], and chart review. PAST MEDICAL HISTORY: Morbid obesity, obstructive sleep apnea, pulmonary hypertension, spinal stenos is, CHF, breast cancer. PAST SURGICAL HISTORY: Hip replacement, knee replacement, cholecystectomy, right lower extremity j[place]zy [place]. CURRENT MEDICATIONS: No blood thinners. ALLERGIES: Amoxicillin. SOCIAL HISTORY: Previous smoker. Continues to drink socially. Lives with her . Is active i n the community. REVIEW OF SYSTEMS: Unobtainable. PHYSICAL EXAM: VITAL SIGNS: Temperature 37.6, blood pressure 156/74, heart rate is 88, and she is 9 8% on 2 L nasal cannula. CONSTITUTIONAL: She does not appear to be in distress. She is a little co nfused, but otherwise appears mostly comfortable. HEENT: Eyes: Her pupils are equal, round, and caitlyn ctive to light and accommodation. She has anicteric sclerae. Ears, nose, mouth, throat: Dry mucous membranes. Hearing appears normal. Ears are normal. No oral mucosal ulcers. CARDIOVASCULAR: Reg ular rate and rhythm without any murmur. RESPIRATORY: She does have some rales dependently. She is otherwise clear. GI: Her abdomen is soft, nondistended, nontender. SKIN: Warm. There is a signif icant amount of cellulitis extending to the mid thigh in the right lower extremity. It is warm and t alena to touch. There is no crepitus. There are no bullae. Distal pulses are intact. Right latera l ankle wound is covered with wet-to-dry dressings and actually appears good with good wound edges an d a decent amount of granulation tissue in the center. MUSCULOSKELETAL: Full strength, no tendernes s. NEUROLOGIC: She is alert and oriented x1. Cranial nerves 2-12 do appear intact. She has no wea kness, no numbness. PSYCH: She is somewhat confused. She is redirectable. She does not appear anx ious. She does not appear encephalopathic. LYMPH/HEME/IMMUNOLOGIC: No cervical or groin lymphadeno kusum is appreciated. LABORATORY DATA: White blood cell count at 4.8, H and H 11 and 34. She does have a left shift to 89 % neutrophils. INR is normal at 1.15. A lactate was initially above, rechecked at 2.2, and now down to 1.9. Chemistry is largely unremarkable with the exception of a BNP which is elevated at 4000. IMAGING: Includes an ultrasound of the right lower extremity, the images of which were personally re viewed. No DVT, but an extensive amount of swelling in the tissues. ASSESSMENT AND PLAN: 78-year-old female with fairly significant past medical history with sepsis sec ondary to right lower extremity cellulitis. I agree with the antibiotic choice on my consultation an d approximately an hour later, the cellulitis does appear to be resolving. Her lactate is resolving as well. Clinically, she appears to be improving both on paper and clinically. I do feel that her s tatus is currently tenuous as I feel she does not have much reserve and needs to be continued to watc h closely. Will continue to watch her. I do not see any obvious reasons for operation tonight. I d id discuss with her son and [id number]-znl that if the patient were to decompensate and the cellulit is were to extend despite our efforts, she may need to go to the operating room for at least a diagno stic debridement as well as to rule out necrotizing fasciitis, and they were in agreement with this. I discussed my findings with the hospitalist admitting as well as the patient's bedside nurse. /[id number]/MODL
[2018-05-14] MEDS: ACETAMINOPHEN 650 MG SUPP PR PRN (22:32)
[2018-05-14] MEDS: CLINDAMYCIN 900 MG/DEXTROSE 50 ML IV SCH (22:42)
[2018-05-14] MEDS: ALLOPURINOL 100 MG TAB PO SCH (22:47)
[2018-05-14] MEDS: GABAPENTIN 300 MG CAP PO SCH (22:47)
[2018-05-14] MEDS: ROSUVASTATIN CALCIUM 10 MG TAB PO SCH (22:48)
[2018-05-15] MEDS ORDERED: VANCOMYCIN 1.25 GM in NS 250 ML IV SCH (03:00)
[2018-05-15] MEDS: ACETAMINOPHEN 650 MG SUPP PR PRN (04:03)
[2018-05-15 05:05] LABS: PLATELET COUNT 98 10^3/uL (150-400)
[2018-05-15] MEDS: IPRATROPIUM/ALBUTEROL 3 ML DEYVIAL IH SCH (05:32)
[2018-05-15] MEDS: CLINDAMYCIN 900 MG/DEXTROSE 50 ML IV SCH ×3 (05:32→21:13)
[2018-05-15] MEDS: BECLOMETHASONE QVAR 80 REDIHALER 120 INH/10.6 GM MDI IH SCH ×3 (08:50→20:31)
[2018-05-15] MEDS: POTASSIUM CL 20 MEQ TAB PO SCH (09:00)
[2018-05-15] MEDS ORDERED: BUMETANIDE 2 MG TAB PO SCH (09:00)
[2018-05-15] MEDS: NEBIVOLOL HCL 5 MG TAB PO SCH ×2 (09:00→09:01)
[2018-05-15] MEDS: FUROSEMIDE 40 MG/4 ML VIAL IVP SCH ×3 (09:00→15:15)
[2018-05-15] MEDS: ASPIRIN 81 MG CHEWABLE TAB PO SCH (09:01)
[2018-05-15] MEDS: ANASTROZOLE 1 MG TAB PO SCH (09:01)
[2018-05-15] MEDS: GABAPENTIN 300 MG CAP PO SCH ×3 (09:01→20:17)
--- NOTE | 2018-05-15 09:01 | CPEKG ---
Heart Rate: 84 RR Interval: 714 P-R Interval: 176 QRSD Interval: 90 QT Interval: 388 QTC Interval: 459 P Kingman: 61 QRS Kingman: 33 T Wave Kingman: 48 EKG Severity - NORMAL ECG - EKG Impression: SINUS RHYTHM Electronically Signed By: Mino Villalta 16-May-2018 16:52:58
[2018-05-15] MEDS: FLUoxetine 20 MG CAP PO SCH (09:02)
[2018-05-15] MEDS: ALLOPURINOL 100 MG TAB PO SCH ×2 (09:02→20:16)
[2018-05-15] MEDS: ACETAMINOPHEN 325 MG TAB PO PRN ×2 (09:02→20:16)
[2018-05-15] MEDS: ENOXAPARIN 40 MG/0.4 ML SYR SC SCH ×2 (09:03→20:16)
--- NOTE | 2018-05-15 09:59 | SOAPPROG ---
SOAP Progress Note Assessment/Plan: Assessment: 78-year-old female admitted on 05/14/18 for R lower extremity cellulitis causing sepsis, strep pyogenes bacteremia, and congestive heart failure. Lactate has trended down to 1.5 Blood culture + for gram positive cocci, patient on vanco and clindamycin Patient's temp was 40.6 last night, but is now within normal range Continue current antibiotics and monitor vitals. Cellulitis appears to be resolving. Serial cultures to follow. I appreciate hospitalist, cardiology and respiratory following. Neuro: continue current medications. Cardio: cardiology following, echo pending. Respiratory: Respiratory and hospitalist following. Skin: Watch for spreading of cellulitis S: Sleeping but easily arousable, denies any pain or discomfort. O: Right lower leg is erythematous and warm to touch, cellulitis extends to mid- thigh, is improving since yesterday, 2+ pitting edema. Right ankle wound covered with dressing. Crackles at the bases bilaterally, on oxygen Regular rate and rhythm 05/15/18 09:53 06/08/18 07:08 Objective: Vital Signs Temp Pulse Resp BP Pulse Ox 38.6 C H 85 23 H 102/42 L 97 05/15/18 07:32 05/15/18 09:25 05/15/18 07:32 05/15/18 09:25 05/15/18 07:32 Laboratory Results 05/15/18 04:55 05/15/18 04:55 05/14/18 05/15/18 05/16/18 05:59 05:59 05:59 Intake Total 351 360 Output Total 1350 Balance -999 360 PT 14.9 SEC (12.0-15.0) 05/14/18 15:15 INR 1.15 (0.83-1.16) 05/14/18 15:15 ICD10 Worksheet Patient Problems: Problems Problem Status Onset Arm pain, left Acute Cellulitis Acute Chest pain, rule out acute myocardial infarction Acute Chronic Disease Management/Transitional Care Program Acute Fever Acute Head injury Acute Laceration Acute Nasal fracture Acute
--- NOTE | 2018-05-15 10:13 | GOP ---
[f rep st] OPERATIVE REPORT DATE OF OPERATION: 05/14/2018 SURGEON: Chris Mullins MD COBOL MAINFRAME DEVELOPER: None. ANESTHESIA: 1% lidocaine. PREOPERATIVE DIAGNOSIS: Sepsis. POSTOPERATIVE DIAGNOSIS: Sepsis. PROCEDURE PERFORMED: Ultrasound-guided left internal jugular central venous catheter placement. FINDINGS: Successful cannulation of the left internal jugular vein using ultrasound guidance. Postpl acement chest film showed that the tip of the catheter was at the brachiocephalic/superior vena cava junction. SPECIMENS: None. ESTIMATED BLOOD LOSS: 5 cc. DESCRIPTION OF PROCEDURE: As the patient was obtunded, consent was obtained from her son. After exp laining the risks, benefits, and alternatives, the patient did assent to the procedure. Her left neck was prepped and draped in the typical sterile fashion after performing a World [employer] Organization t jeffry-out. I anesthetized the skin and overlying musculature of the left internal jugular vein using 1% lidocaine. I successfully accessed and cannulated the vein and threaded my guidewire without any int rusion. It was then dilated, and the catheter was inserted to 17 cm at the skin. It was then attached at this site. A Biopatch and sterile dressing were then placed. All ports both withdrew and flushed appropriately. A postplacement chest film was immediately performed which showed no complications and appropriate placement. The patient tolerated the procedure well with no intraprocedural complication s. DRAINS: None. /[id number]/MODL
--- NOTE | 2018-05-15 10:19 | ECHO ---
[email or web address] [address] [address] Main: [phone] Fax: Transthoracic Echocardiogram Name: GUILHERME ARDON MR#: [id number] Study Date: 05/15/2018 Study Time: 08:18 AM Date of : 1940 Age: 78 year(s) Height: 175.3 cm (69 in.) Weight: 136.08 kg (300 lb.) BSA: 2.45 m2 Gender: Female Examination: Echo Indication: CHF Image Quality: Technically Difficult Contrast: Requested by: Rita Duarte BP: 115 mmHg/50 mmHg Heart Rate: Rhythm: Indication: CHF Procedure Staff Head Of Product: Anny Hopkins [facility] Reading Physician: Riley Frankel MD Requesting Provider: Conclusions: Normal size left ventricle. No LV hypertrophy. Normal global systolic LV function. EF is 56 %. Cannot rule out wall motion abnormalities due to poor endocardial definition. Right ventricle is not well visualized. From the subcostal window the RV appears mildly dilated with RV free wall hypertrophy and grossly normal function. No mitral stenosis is present. There is no significant aortic valve regurgitation. No aortic valve stenosis is present. Mild to moderate tricuspid valve regurgitation. Right ventricular systolic pressure measures 54mmHg. The pulmonary artery pressure is moderately increased. Normal size ascending aorta measuring 3.1 cm. No previous Measurements: Chambers Valvular Assessment AV/MV Valvular Assessment TV/PV Normal Normal Normal Name Value Range Name Value Range Name Value Range Ao Xochitl (MM): 3.3 cm (2.2 cm-3.7 AV Vmax: 2.05 m/s (1 m/s-1.7 TR Vmax: 3.14 mm/s ( - ) cm) m/s) TR PGmax: 39 mmHg ( - ) IVSd (2D): 0.8 cm (0.6 cm-1.1 AV maxP mmHg ( - ) syst. PAP: 54 mmHg ( - ) cm) AV meanP mmHg ( - ) PV Vmax: 1.23 m/s (0.6 m/s-0.9 LVDd (2D): 5.1 cm (3.9 cm-5.3 LVOT Vmax: 1.03 m/s (0.7 m/s-1.1 m/s) cm) m/s) PV PGmax: 6 mmHg ( - ) LVDs (2D): 3.6 cm (2.1 cm-4 MV E Vmax: 0.91 m/s ( - ) cm) MV A Vmax: 0.59 m/s ( - ) LVPWd (2D): 0.7 cm ( - ) MV E/A: 1.54 ( - ) LVEF (2D): 56 (>=54 %) Patient: GUILHERME ARDON Study Date: 05/15/2018 Page 1 of 2 08:18 AM Continued Measurements: Chambers Valvular Assessment AV/MV Valvular Assessment TV/PV Name Value Name Value Name Value LADs Lon.9 cm MV DecTime: 194 m/s CVP (est.): 15 mmHg LA Area: 18.1 cm2 MV E/E' Septal: 12.90 LA Volume: 47 ml MV E/E' Lateral: 7.10 LA Volume Index: 19.2 ml/m2 Additional Vessels Name Value Ao Ascendin.1 cm Findings: Left Ventricle: Normal size left ventricle. No LV hypertrophy. Normal global systolic LV function. EF is 56 %. Cannot rule out wall motion abnormalities due to poor endocardial definition. Normal diastolic LV function. Right Ventricle: Right ventricle is not well visualized. From the subcostal window the RV appears mildly dilated with RV free wall hypertrophy and grossly normal function. Left Atrium: The left atrium is normal in size. Right Atrium: The right atrium is normal in size. Mitral Valve: The mitral valve is normal in appearance. Trivial mitral valve regurgitation. No mitral stenosis is present. Aortic Valve: The aortic valve is tri-leaflet. There is no significant aortic valve regurgitation. No aortic valve stenosis is present. Tricuspid Valve: The tricuspid valve appears normal. Mild to moderate tricuspid valve regurgitation. Right ventricular systolic pressure measures 54mmHg. The pulmonary artery pressure is moderately increased. Pulmonic Valve: Pulmonary valve not well visualized. Aorta: Normal size aortic root measuring 3.3 cm. Normal size ascending aorta measuring 3.1 cm. IVC: The IVC is dilated. There is no inspiratory collapse of the IVC. Pericardium: No pericardial effusion. (No Signature Object) Patient: GUILHERME ARDON Study Date: 05/15/2018 Page 2 of 2 08:18 AM [id number]
[2018-05-15] MEDS: ceFAZolin 2 GM/DEXTROSE 100 ML IV SCH ×3 (10:54→21:12)
--- NOTE | 2018-05-15 11:10 | PDMN ---
Medical Necessity Medical necessity: est los>2mn for severe R LE cellulitis r/t leg wound w/wound vac in place, lactic acid elevation, acute on chronic diastolic CHF w/ acute resp failure, and metabolic encephalopathy; admit ICU/SDU, close monitoring of cellulitis demarcation, IV abx, surgical consult, follow troponin, anticipate difficulty balancing IV hydration and IV diuresis; comorbid pulm htn, cor pulmonale, SELENA, and morbid obesity, hx MRSA per order and H&P 05/14/18
--- NOTE | 2018-05-15 11:42 | PCMIDPN ---
Assessment/Plan: Assessment/Plan: * Sepsis due to group A streptococcal bacteremia associated with right lower extremity cellulitis: Clinical findings consistent with right lower extremity cellulitis with blood cultures being positive for group A Streptococcus. No clinical findings to suggest necrotizing fasciitis. Likely portal of entry right lower extremity wound which does not show overt signs of infection. Will change antibiotic therapy from vancomycin and clindamycin to cefazolin and clindamycin; of note, resistance rates in group a Streptococcus now increasing in clindamycin but use of linezolid limited by concomitant intake of Prozac. Discussed amoxicillin allergy with patient which she notes as rash which required injections for resolution; she describes tolerating cephalexin in past. 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 She will need to be in contact isolation given septic arthritis occurred in June 2017. 05/15/18 11:42 05/15/18 11:47 Subjective: Patient known to me from outpatient care for chronic suppressive antibiotic therapy for left total hip arthroplasty infection due to MRSA (03/21/2018 and 08/2018) see my note dated. Patient on chronic doxycycline twice daily as suppression given retained hardware. Patient with chronic right foot wound over the dorsal aspect now being managed with wound VAC. Yesterday patient developed confusion followed by rigors and right lower extremity erythema of rapid onset. Patient started empirically on vancomycin and clindamycin given these findings. Blood cultures now showing growth of group A Streptococcus. Patient notes she feels better today with resolved confusion. Objective: Vital Signs Temp Pulse Resp BP Pulse Ox 38.1 C 81 26 H 106/46 L 99 05/15/18 11:35 05/15/18 11:35 05/15/18 11:35 05/15/18 11:35 05/15/18 11:35 Laboratory Results 05/15/18 04:55 05/15/18 04:55 05/14/18 05/15/18 05/16/18 05:59 05:59 05:59 Intake Total 351 360 Output Total 1350 Balance -999 360 Vancomycin # 1 Clindamycin # 1 Blood cultures x2 group A Streptococcus - Physical Exam General Appearance: alert, no apparent distress EENT: dry mucous membranes, No scleral icterus, No conjunctival petechiae Respiratory: lungs clear, No respiratory distress Cardiac/Chest: regular rate, rhythm, No systolic murmur Extremities: inflammation (Right lower extremity with erythema from ankle to mid thigh with splotchy distribution with some elements of robert quality; no bulla or crepitus; warm and tender to palpation throughout) Abdomen: non-tender, No distended Skin: other (Clean based wound over dorsal aspect of foot with some fibrinous slough; smaller ulceration over medial calf without drainage) Neuro/Psych: No confused - Time Spent With Patient Time Spent with Patient: greater than 35 minutes Time Spent with Patient: Greater than 35 minutes spent on this patients care, greater than 50% of time spent counseling, educating, and coordinating care regarding the above mentioned plan. ICD10 Worksheet Patient Problems: Problems Problem Status Onset Cellulitis Acute Fever Acute Arm pain, left Acute Chest pain, rule out acute myocardial infarction Acute Chronic Disease Management/Transitional Care Program Acute Head injury Acute Laceration Acute Nasal fracture Acute
--- NOTE | 2018-05-15 14:09 | ASMTCMCOM ---
CM Note CM Note Notes: Pt was admitted with R LE cellulitis, sepsis and CHF. She has a hx of morbid obesity and breast CA, She fractured her ankle 03/27/18 and was given a walking boot which caused an ulceration on her ankle. An I&D was done 04/[address] Maravilla and wound vac placed. Currently the wound vac is off and may be put back on tomorrow. Pt may need another I&D. She is on IV ABX. She is current with [facility]. She is and lives in [place]. CM will follow for any d/c needs. Date Signed: 05/15/2018 02:08 PM Electronically Signed By:CRISTA Cook
--- NOTE | 2018-05-15 14:23 | HOSPPROG ---
Hospitalist Progress Note Assessment/Plan: 78 yo F with hx of morbid obesity, diastolic heart failure presenting with severe sepsis in the setting of cellulitis related to ulceration s/p ankle fracture and walking boot related pressure ulcer and strep pyogenes bacteremia # severe sepsis: in the setting of cellulitis and strep pyogenes bacteremia. Initially febrile with tmax of 40.5, lactate elevated to 2.2 on admission , abx/ tx as next, continue to monitor in ICU # strep pyogenes bacteremia: appreciate ID input, treating with cefazolin and clindamycin, surveillance cultures to be drawn tomorrow # cellulitis: etiology for above, erythema improving since admission, appreciate gen surg input ,continue wound vac # chronic diastolic heart failure: monitoring with IVF, she was given IVF initially, then lasix, now hypotensive and with decreased uop despite lasix so suspect she may be dry--very tenuous fluid status and given pulm htn quite preload dependent likely, monitoring closely # hx of MRSA septic arthritis in setting of hip arthroplasty: continue suppressive doxycycline # carlos/ohs: continue nocturnal cpap # acute encephalopathy: in setting of sepsis as above, improved # pulmonary htn/cor pulmonale: noted on echo, RVSP of 54, 2/2 above, currently appears largely euvolemic but as above fluid status is tenuous # IP status Patient new to my care. Old records reviewed, summarized as above. Care valeri reviewed with DR. Wiley. > 35 min critical care time spent in eval/mgmt of above Subjective: no acute overnight events, febrile to 40, more alert Objective: Vital Signs Temp Pulse Resp BP Pulse Ox 38.1 C 81 26 H 106/46 L 99 05/15/18 11:35 05/15/18 11:35 05/15/18 11:35 05/15/18 11:35 05/15/18 11:35 Laboratory Results 05/15/18 04:55 05/15/18 04:55 05/14/18 05/15/18 05/16/18 05:59 05:59 05:59 Intake Total 351 360 Output Total 1350 Balance -999 360 PT 14.9 SEC (12.0-15.0) 05/14/18 15:15 INR 1.15 (0.83-1.16) 05/14/18 15:15 awake alert anicteric op clear rrr no mrg cta dec bs at bases soft nt nd ble edema lle with erythema/edema decrased from margins oriented appropriate ICD10 Worksheet Patient Problems: Problems Problem Status Onset Chronic Disease Management/Transitional Care Program Acute Chest pain, rule out acute myocardial infarction Acute Arm pain, left Acute Nasal fracture Acute Laceration Acute Head injury Acute Fever Acute Cellulitis Acute
[2018-05-15] MEDS: OXYCODONE/APAP 5/325 TAB PO PRN (17:13)
[2018-05-15] MEDS: DOXYCYCLINE HYCLATE 100 MG CAP/TAB PO SCH (20:16)
[2018-05-15] MEDS: PANTOPRAZOLE SODIUM 40 MG TAB PO SCH (20:17)
[2018-05-15] MEDS: ROSUVASTATIN CALCIUM 10 MG TAB PO SCH (20:17)
[2018-05-16] MEDS: CLINDAMYCIN 900 MG/DEXTROSE 50 ML IV SCH ×3 (05:20→21:42)
[2018-05-16] MEDS: ceFAZolin 2 GM/DEXTROSE 100 ML IV SCH ×3 (05:20→21:44)
[2018-05-16] MEDS: OXYCODONE/APAP 5/325 TAB PO PRN ×4 (05:20→21:39)
--- NOTE | 2018-05-16 09:05 | SOAPPROG ---
SOAP Progress Note Assessment/Plan: Assessment: 78-year-old female admitted on 05/14/18 for R lower extremity cellulitis causing sepsis, strep pyogenes bacteremia, and congestive heart failure. Continue cefazolin and clindamycin, cultures pending to direct antibiotic therapy. I will have wound care address wound vac. Continue to monitor in ICU. S: Feeling tired, discomfort, feels worse today, wants to sleep O: Right lower leg is more erythematous and warm to touch today, small bullae on posterior surface of lower leg, cellulitis on upper mid thigh is improving below marked line and redness is improving. Right ankle wound covered with dressing. CTAB Regular rate and rhythm 05/16/18 10:19 Objective: Vital Signs Temp Pulse Resp BP Pulse Ox 38.1 C 87 20 112/54 L 96 05/16/18 07:48 05/16/18 07:48 05/16/18 07:48 05/16/18 07:48 05/16/18 07:48 Laboratory Results 05/15/18 04:55 05/15/18 04:55 05/15/18 05/16/18 05/17/18 05:59 05:59 05:59 Intake Total 351 1730 Output Total 1350 755 Balance -999 975 PT 14.9 SEC (12.0-15.0) 05/14/18 15:15 INR 1.15 (0.83-1.16) 05/14/18 15:15 ICD10 Worksheet Patient Problems: Problems Problem Status Onset Cellulitis Acute Fever Acute Arm pain, left Acute Chest pain, rule out acute myocardial infarction Acute Chronic Disease Management/Transitional Care Program Acute Head injury Acute Laceration Acute Nasal fracture Acute
[2018-05-16] MEDS: ENOXAPARIN 40 MG/0.4 ML SYR SC SCH ×2 (09:10→21:43)
[2018-05-16] MEDS: POTASSIUM CL 20 MEQ TAB PO SCH (09:11)
[2018-05-16] MEDS: FLUoxetine 20 MG CAP PO SCH (09:14)
[2018-05-16] MEDS: FUROSEMIDE 40 MG/4 ML VIAL IVP SCH ×2 (09:14→12:51)
[2018-05-16] MEDS: ALLOPURINOL 100 MG TAB PO SCH ×2 (09:18→21:40)
[2018-05-16] MEDS: NEBIVOLOL HCL 5 MG TAB PO SCH (09:19)
[2018-05-16] MEDS: ANASTROZOLE 1 MG TAB PO SCH (09:24)
[2018-05-16] MEDS: GABAPENTIN 300 MG CAP PO SCH ×3 (09:24→21:39)
[2018-05-16] MEDS: ASPIRIN 81 MG CHEWABLE TAB PO SCH (09:24)
[2018-05-16] MEDS: DOXYCYCLINE HYCLATE 100 MG CAP/TAB PO SCH ×2 (09:25→21:39)
--- NOTE | 2018-05-16 09:47 | SOAPPROG ---
SOAP Progress Note Assessment/Plan: Assessment: 78-year-old female admitted on 05/14/18 for R lower extremity cellulitis causing sepsis, strep pyogenes bacteremia, and congestive heart failure. Continue cefazolin and clindamycin, cultures pending to direct antibiotic therapy. I will have wound care address wound vac. Continue to monitor in ICU. S: Feeling tired, discomfort, feels worse today, wants to sleep O: Right lower leg is more erythematous and warm to touch today, small bullae on posterior surface of lower leg, cellulitis on upper mid thigh is improving below marked line and redness is improving. Right ankle wound covered with dressing. CTAB Regular rate and rhythm 05/16/18 09:00 Objective: Vital Signs Temp Pulse Resp BP Pulse Ox 38.1 C 81 20 105/56 L 96 05/16/18 07:48 05/16/18 09:19 05/16/18 07:48 05/16/18 09:19 05/16/18 07:48 Laboratory Results 05/15/18 04:55 05/15/18 04:55 05/15/18 05/16/18 05/17/18 05:59 05:59 05:59 Intake Total 351 1730 Output Total 1350 755 Balance -999 975 PT 14.9 SEC (12.0-15.0) 05/14/18 15:15 INR 1.15 (0.83-1.16) 05/14/18 15:15 ICD10 Worksheet Patient Problems: Problems Problem Status Onset Cellulitis Acute Fever Acute Arm pain, left Acute Chest pain, rule out acute myocardial infarction Acute Chronic Disease Management/Transitional Care Program Acute Head injury Acute Laceration Acute Nasal fracture Acute
[2018-05-16] MEDS: BECLOMETHASONE QVAR 80 REDIHALER 120 INH/10.6 GM MDI IH SCH ×2 (10:57→21:34)
--- NOTE | 2018-05-16 11:08 | WOCRNPDOC ---
WOCRN Advanced Assessment Note - Skin Integrity Problem, Advanced Assess Right Lateral Ankle Traumatic Wound Dressing Type: Allevyn Life, Gauze Dressing Description: Clean/Dry, Intact, Shadowed Exudate Amount: Moderate Exudate Color: Reddish/Yellow Exudate Characteristic(s): Serosanguinous Integumentary Issue Intervention: Dressing Applied Natalie Wound Tissue: Erythema, Painful/Tender Natalie Wound Swelling: Moderate Wound Bed Color: Red, Yellow Wound Bed Constitution: Granulation Tissue (60%), Adhered Slough (40%) Wound Edges: Epithelizing, Attached Site Odor: None Site Measurement - Head-to-Toe Length X Width X Depth (cm): 5.1x5.4x0.8 Skin Integrity Problem Comment: Wound bed cleansed with ns. No sting skin prep applied along with Mastisol. Window-paned periwound skin. One piece of perforated haas base layer covered by one piece of solid haas foam applied to wound bed. Drape applied. Vereflo Wound Vac therapy initiated. 24ml of Vache to be instilled in wound bed Q3H for 6 minutes. Vac working well with no leaks. Patient and Talia RN instructed to not put pressure on wound vac area while Vache is being installed. Dr. Maravilla aware of plan. Pt received 2mg of IV morphine for pain control, pain well controlled. Will round again on Monday for vac change. Elena Aly RN, Wound care team. Judi NJ and Radha STEWART in room for care.
--- NOTE | 2018-05-16 13:10 | PCMIDPN ---
Assessment/Plan: Assessment/Plan: * Sepsis due to group A streptococcal bacteremia associated with right lower extremity cellulitis: Still with persistent, significant right lower extremity cellulitis. No exam findings to suggest necrotizing fasciitis however. Continue cefazolin and clindamycin pending susceptibility profile of group A Streptococcus. Emphasized leg elevation as this will be important to assist with resolution. 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 She will need to be in contact isolation given septic arthritis occurred in June 2017. Review doxycycline dose with patient today. Clinical findings and plan reviewed with patient, Dr. Maravilla, and nursing staff. 05/16/18 13:07 Subjective: Patient with persistent right lower extremity erythema and tenderness. Objective: Vital Signs Temp Pulse Resp BP Pulse Ox 36.5 C 77 18 96/57 L 96 05/16/18 12:13 05/16/18 12:13 05/16/18 12:13 05/16/18 12:13 05/16/18 12:13 Laboratory Results 05/15/18 04:55 05/15/18 04:55 05/15/18 05/16/18 05/17/18 05:59 05:59 05:59 Intake Total 351 1730 203 Output Total 1350 755 Balance -999 975 203 Cefazolin # 1 Clindamycin # 2 Blood cultures group A Streptococcus Temperature maximum 39.2 - Physical Exam General Appearance: alert, no apparent distress, non-toxic EENT: No scleral icterus, No thrush, No conjunctival petechiae Respiratory: lungs clear, No respiratory distress Cardiac/Chest: regular rate, rhythm Extremities: inflammation (Right lower extremity with prominent erythema from ankle to knee with some bulla forming over medial aspect of calf; no crepitus or fluctuance; no areas of necrosis; erythema above knee fainter in color with slight extension beyond demarcated lines) Abdomen: non-tender, No distended Skin: No embolic lesions ICD10 Worksheet Patient Problems: Problems Problem Status Onset Cellulitis Acute Fever Acute Arm pain, left Acute Chest pain, rule out acute myocardial infarction Acute Chronic Disease Management/Transitional Care Program Acute Head injury Acute Laceration Acute Nasal fracture Acute
--- NOTE | 2018-05-16 16:46 | HOSPPROG ---
Hospitalist Progress Note Assessment/Plan: 78 yo F with hx of morbid obesity, diastolic heart failure presenting with severe sepsis in the setting of cellulitis related to ulceration s/p ankle fracture and walking boot related pressure ulcer and strep pyogenes bacteremia # severe sepsis: in the setting of cellulitis and strep pyogenes bacteremia. Initially febrile with tmax of 40.5, lactate elevated to 2.2 on admission , abx/ tx as next, improved # strep pyogenes bacteremia: appreciate ID input, treating with cefazolin and clindamycin, surveillance cultures drawn and ngtd # cellulitis: etiology for above, erythema improving slightly since admission, appreciate gen surg input, wound vac placed # chronic diastolic heart failure: monitoring closely, very tenuous fluid status and given pulm htn quite preload dependent likely, will continue daily lasix at a low dose for now # hx of MRSA septic arthritis in setting of hip arthroplasty: continue suppressive doxycycline # carlos/ohs: continue nocturnal cpap # acute encephalopathy: in setting of sepsis as above, improved # pulmonary htn/cor pulmonale: noted on echo, RVSP of 54, 2/2 above, currently appears largely euvolemic but as above fluid status is tenuous # IP status Care plan reviewed with DR. Wiley, wound care team. Subjective: no significant overnight events, patient notes that she is feeling a bit better today though leg is still very painful especially with dressing changes Objective: Vital Signs Temp Pulse Resp BP Pulse Ox 36.5 C 72 18 96/56 L 95 05/16/18 15:02 05/16/18 15:02 05/16/18 15:02 05/16/18 15:02 05/16/18 15:02 Laboratory Results 05/15/18 04:55 05/15/18 04:55 05/15/18 05/16/18 05/17/18 05:59 05:59 05:59 Intake Total 351 1730 203 Output Total 1350 755 Balance -999 975 203 PT 14.9 SEC (12.0-15.0) 05/14/18 15:15 INR 1.15 (0.83-1.16) 05/14/18 15:15 awake alert anicteric op clear rrr no mrg cta dec bs at bases soft nt nd ble edema lle with significant erythema/edema decreased from margins in some areas though increased in others oriented appropriate - Time Spent With Patient Time Spent with Patient: greater than 35 minutes Time Spent with Patient: Greater than 35 minutes spent on this patients care, greater than 50% of time spent counseling, educating, and coordinating care regarding the above mentioned plan. ICD10 Worksheet Patient Problems: Problems Problem Status Onset Cellulitis Acute Fever Acute Arm pain, left Acute Chest pain, rule out acute myocardial infarction Acute Chronic Disease Management/Transitional Care Program Acute Head injury Acute Laceration Acute Nasal fracture Acute
[2018-05-16] MEDS: ROSUVASTATIN CALCIUM 10 MG TAB PO SCH (21:40)
[2018-05-16] MEDS: PANTOPRAZOLE SODIUM 40 MG TAB PO SCH (21:40)
[2018-05-17] MEDS: ceFAZolin 2 GM/DEXTROSE 100 ML IV SCH ×2 (05:18→14:30)
[2018-05-17] MEDS: CLINDAMYCIN 900 MG/DEXTROSE 50 ML IV SCH (05:18)
[2018-05-17] MEDS: OXYCODONE/APAP 5/325 TAB PO PRN (08:02)
[2018-05-17] MEDS: BECLOMETHASONE QVAR 80 REDIHALER 120 INH/10.6 GM MDI IH SCH ×2 (09:23→20:00)
[2018-05-17] MEDS: ENOXAPARIN 40 MG/0.4 ML SYR SC SCH ×2 (09:40→21:40)
[2018-05-17] MEDS: FLUoxetine 20 MG CAP PO SCH (09:40)
[2018-05-17] MEDS: NEBIVOLOL HCL 5 MG TAB PO SCH (09:41)
[2018-05-17] MEDS: POTASSIUM CL 20 MEQ TAB PO SCH (09:41)
[2018-05-17] MEDS: ASPIRIN 81 MG CHEWABLE TAB PO SCH (09:41)
[2018-05-17] MEDS: GABAPENTIN 300 MG CAP PO SCH ×3 (09:41→21:39)
[2018-05-17] MEDS: DOXYCYCLINE HYCLATE 100 MG CAP/TAB PO SCH ×2 (09:41→21:39)
[2018-05-17] MEDS: ALLOPURINOL 100 MG TAB PO SCH ×2 (09:41→21:39)
[2018-05-17] MEDS: FUROSEMIDE 20 MG/2 ML VIAL IVP SCH (09:42)
[2018-05-17] MEDS: ANASTROZOLE 1 MG TAB PO SCH (09:42)
--- NOTE | 2018-05-17 11:11 | SOAPPROG ---
SOAP Progress Note Assessment/Plan: Assessment: 78 yo female admitted on 05/14/18 for R lower extremity cellulitis causing sepsis , strep pyogenes bacteremic, and congestive heart failure. 2nd culture is pending to direct antibiotic therapy as cellulitis is not improving. Continue to monitor. S: Feeling better today, denies any pain O: Right lower leg is slightly better than yesterday, small bullae on posteior surface of lower leg increased in size Cellulitis on upper mid thigh looks the same. Right foot in dressing and boot. CTAB Regular rate and rhythm Patient afebrile 05/17/18 11:10 Objective: Vital Signs Temp Pulse Resp BP Pulse Ox 36.9 C 74 20 115/75 97 05/17/18 08:00 05/17/18 09:41 05/17/18 08:00 05/17/18 09:41 05/17/18 08:00 Laboratory Results 05/15/18 04:55 05/15/18 04:55 05/16/18 05/17/18 05/18/18 05:59 05:59 05:59 Intake Total 1730 203 Output Total 755 925 Balance 975 -722 PT 14.9 SEC (12.0-15.0) 05/14/18 15:15 INR 1.15 (0.83-1.16) 05/14/18 15:15 ICD10 Worksheet Patient Problems: Problems Problem Status Onset Cellulitis Acute Fever Acute Arm pain, left Acute Chest pain, rule out acute myocardial infarction Acute Chronic Disease Management/Transitional Care Program Acute Head injury Acute Laceration Acute Nasal fracture Acute
[2018-05-17] MEDS ORDERED: MAGNESIUM HYDROXIDE 30 ML UDCUP PO PRN (12:30)
[2018-05-17] MEDS ORDERED: POLYETHYLENE GLYCOL 3350 17 GM PKT PO PRN (12:30)
[2018-05-17] MEDS ORDERED: LACTULOSE 20 GM/30 ML UDCUP PO PRN (12:30)
[2018-05-17] MEDS ORDERED: BISACODYL 10 MG SUPP PR PRN (12:30)
[2018-05-17] MEDS: oxyCODONE IR 5 MG TAB PO PRN ×2 (15:07→21:40)
--- NOTE | 2018-05-17 15:50 | HOSPPROG ---
Hospitalist Progress Note Assessment/Plan: 78 yo F with hx of morbid obesity, diastolic heart failure presenting with severe sepsis in the setting of cellulitis related to ulceration s/p ankle fracture and walking boot related pressure ulcer and strep pyogenes bacteremia # severe sepsis: in the setting of cellulitis and strep pyogenes bacteremia. Initially febrile with tmax of 40.5, lactate elevated to 2.2 on admission , abx/ tx as next, improved # strep pyogenes bacteremia: appreciate ID input, treating with cefazolin and s/ p clindamycin dc'ed on 05/16, cxs positive from 05/14 surveillance cultures from ngtd # cellulitis: etiology for above, erythema improving only slightly since admission, appreciate gen surg input, wound vac placed # chronic diastolic heart failure: monitoring closely, very tenuous fluid status and given pulm htn, she is near euvolemic and with diuresis had issues with hypotension, # hx of MRSA septic arthritis in setting of hip arthroplasty: continue suppressive doxycycline # carlos/ohs: continue nocturnal cpap # acute encephalopathy: in setting of sepsis as above, improved # pulmonary htn/cor pulmonale: noted on echo, RVSP of 54, 2/2 above, currently appears largely euvolemic but as above fluid status is tenuous # IP status Subjective: no significant overnight events, patient having much more pain since wound vac has been placed Objective: Vital Signs Temp Pulse Resp BP Pulse Ox 37.1 C 68 21 H 121/70 H 94 05/17/18 14:46 05/17/18 14:46 05/17/18 14:46 05/17/18 14:46 05/17/18 14:46 Laboratory Results 05/15/18 04:55 05/15/18 04:55 05/16/18 05/17/18 05/18/18 05:59 05:59 05:59 Intake Total 1730 203 Output Total 755 925 800 Balance 975 -722 -800 PT 14.9 SEC (12.0-15.0) 05/14/18 15:15 INR 1.15 (0.83-1.16) 05/14/18 15:15 awake alert anicteric op clear rrr no mrg cta dec bs at bases soft nt nd ble edema lle with significant erythema/edema decreased from margins in some areas though increased in others oriented appropriate ICD10 Worksheet Patient Problems: Problems Problem Status Onset Cellulitis Acute Fever Acute Arm pain, left Acute Chest pain, rule out acute myocardial infarction Acute Chronic Disease Management/Transitional Care Program Acute Head injury Acute Laceration Acute Nasal fracture Acute
--- NOTE | 2018-05-17 16:19 | ASMTCMCOM ---
CM Note CM Note Notes: Chart reviewed. Patient admitted with sepsis and CHF had wound vac placed. Was current with [facility]. Therapies recommending SNF.. Cultures pending for antibiotics. Needs TBD Plan: Likely to SNF when medically stable for discharge to home. Date Signed: 05/17/2018 04:18 PM Electronically Signed By:Radha Gray RN
--- NOTE | 2018-05-17 16:25 | PCMIDPN ---
Assessment/Plan: Assessment/Plan: * Sepsis due to group A streptococcal bacteremia associated with right lower extremity cellulitis: Edema has decreased below knee although still prominent erythema below knee. Erythema above knee in thigh without extension and slight decrease in intensity of erythema. Will transition cefazolin to ceftriaxone to see if leads to improved clinical response. Isolate is clindamycin resistant so will discontinue clindamycin. 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 Anticipate duration of therapy is indefinite. 05/17/18 16:22 05/17/18 16:30 Subjective: Nursing staff with patient's sleepy today. Patient with persistent pain in right lower extremity. Objective: Vital Signs Temp Pulse Resp BP Pulse Ox 37.1 C 68 21 H 121/70 H 94 05/17/18 14:46 05/17/18 14:46 05/17/18 14:46 05/17/18 14:46 05/17/18 14:46 Laboratory Results 05/15/18 04:55 05/15/18 04:55 05/16/18 05/17/18 05/18/18 05:59 05:59 05:59 Intake Total 1730 203 Output Total 755 925 800 Balance 975 -906 -569 Cefazolin # 2 Clindamycin # 3 Group A streptococcal susceptibilities reviewed showing resistance to clindamycin - Physical Exam General Appearance: alert, no apparent distress EENT: No thrush, No conjunctival petechiae Respiratory: lungs clear, No respiratory distress Cardiac/Chest: regular rate, rhythm Extremities: inflammation (Right lower extremity with persistent robert erythema below knee; skin ulcerations medially with clean base; bulla larger in size medially; serous appearing fluid underlying; wound VAC in place over dorsal aspect of foot. Erythema above knee extends circumferentially around posterior thigh less intense in character) Abdomen: non-tender, No distended Skin: No embolic lesions ICD10 Worksheet Patient Problems: Problems Problem Status Onset Cellulitis Acute Fever Acute Arm pain, left Acute Chest pain, rule out acute myocardial infarction Acute Chronic Disease Management/Transitional Care Program Acute Head injury Acute Laceration Acute Nasal fracture Acute
[2018-05-17] MEDS: IPRATROPIUM/ALBUTEROL 3 ML DEYVIAL IH PRN (19:30)
[2018-05-17] MEDS: IPRATROPIUM HFA INHALER IH SCH (20:00)
--- NOTE | 2018-05-17 21:35 | HOSPPROG ---
Hospitalist Progress Note Assessment/Plan: I was asked to come evaluate the patient for confusion and acute resp distress. She is alert. Does not appear to have any new confusion. She is able to tell me that she is in the hospital and why she is here. She is able to tell me how long she has been in the hospital. She is able to tell me who her ID physician is. She can spell her name. She is able to tell me why she is on antibiotics. She also does not have any signs of resp distress. Her O2 needs are the same as they have been on 2L [place]. Her breathing is not labored. A CXR does not show any new findings. She is on daily diuretics and should continues these. Reported confusion and respiratory distress appear to have resolved or significantly improved CPM Objective: Vital Signs Temp Pulse Resp BP Pulse Ox 37.1 C 82 18 115/70 95 05/17/18 20:00 05/17/18 20:00 05/17/18 20:00 05/17/18 20:00 05/17/18 20:00 Laboratory Results 05/15/18 04:55 05/15/18 04:55 05/16/18 05/17/18 05/18/18 05:59 05:59 05:59 Intake Total 1730 203 Output Total 728 087 6872 Balance 975 -722 -1250 PT 14.9 SEC (12.0-15.0) 05/14/18 15:15 INR 1.15 (0.83-1.16) 05/14/18 15:15 ICD10 Worksheet Patient Problems: Problems Problem Status Onset Cellulitis Acute Fever Acute Arm pain, left Acute Chest pain, rule out acute myocardial infarction Acute Chronic Disease Management/Transitional Care Program Acute Head injury Acute Laceration Acute Nasal fracture Acute
[2018-05-17] MEDS: SENNOSIDES/DOCUSATE SODIUM TAB PO SCH (21:39)
[2018-05-17] MEDS: PANTOPRAZOLE SODIUM 40 MG TAB PO SCH (21:39)
[2018-05-17] MEDS: ROSUVASTATIN CALCIUM 10 MG TAB PO SCH (21:39)
[2018-05-18] MEDS: oxyCODONE IR 5 MG TAB PO PRN ×3 (06:25→21:32)
[2018-05-18] MEDS: ENOXAPARIN 40 MG/0.4 ML SYR SC SCH ×2 (09:00→23:18)
[2018-05-18] MEDS: ANASTROZOLE 1 MG TAB PO SCH (09:01)
[2018-05-18] MEDS: ASPIRIN 81 MG CHEWABLE TAB PO SCH (09:01)
[2018-05-18] MEDS: POTASSIUM CL 20 MEQ TAB PO SCH (09:01)
[2018-05-18] MEDS: NEBIVOLOL HCL 5 MG TAB PO SCH (09:01)
[2018-05-18] MEDS: GABAPENTIN 300 MG CAP PO SCH ×3 (09:01→21:33)
[2018-05-18] MEDS: ALLOPURINOL 100 MG TAB PO SCH ×2 (09:01→21:34)
[2018-05-18] MEDS: DOXYCYCLINE HYCLATE 100 MG CAP/TAB PO SCH ×2 (09:01→21:33)
[2018-05-18] MEDS: SENNOSIDES/DOCUSATE SODIUM TAB PO SCH ×2 (09:01→21:33)
--- NOTE | 2018-05-18 09:26 | SOAPPROG ---
SOAP Progress Note Assessment/Plan: Assessment: 78 yo female admitted on 05/14/18 for R lower extremity cellulitis causing sepsis , strep pyogenes bacteremic, and congestive heart failure. ABX changed - ID to manage abx Continue ABX and veraflo. Discussed with Judi Gerardo PT [place] LASER BEAM CUTTER will follow over the weekend. S: Feeling worse today. Pain by ankle O: Overall less intense erythema below the knee and less edematous. One area central pallor below knee Bulla is stable on medial aspect I removed the wound vac and the bed of the wound is healthy. No obvious infection at base of wound. Pain subsided after vac removed HOWEVER, erythema on thigh is now beyond previous markings 05/17/18 11:10 05/18/18 09:24 Objective: Vital Signs Temp Pulse Resp BP Pulse Ox 37.2 C 70 22 H 130/64 H 90 L 05/18/18 07:26 05/18/18 09:01 05/18/18 07:26 05/18/18 09:01 05/18/18 07:26 Laboratory Results 05/15/18 04:55 05/15/18 04:55 05/17/18 05/18/18 05/19/18 05:59 05:59 05:59 Intake Total 203 120 Output Total 925 1700 Balance -722 -1580 PT 14.9 SEC (12.0-15.0) 05/14/18 15:15 INR 1.15 (0.83-1.16) 05/14/18 15:15 ICD10 Worksheet Patient Problems: Problems Problem Status Onset Cellulitis Acute Fever Acute Arm pain, left Acute Chest pain, rule out acute myocardial infarction Acute Chronic Disease Management/Transitional Care Program Acute Head injury Acute Laceration Acute Nasal fracture Acute
--- NOTE | 2018-05-18 10:15 | WOCRNPDOC ---
WOCRN Advanced Assessment Note - Skin Integrity Problem, Advanced Assess Right Lateral Ankle Traumatic Wound Dressing Type: Wound Vac (x 2 pieces of grissom foam) Dressing Description: Clean/Dry, Intact Exudate Amount: Scant Exudate Characteristic(s): Serosanguinous Integumentary Issue Intervention: Dressing Changed Adalberto Wound Tissue: Blanching, Erythema, Hot, Swollen Adalberto Wound Swelling: Severe Wound Bed Color: Red, Yellow Wound Bed Constitution: Granulation Tissue (60%), Subcutaneous Fat (20%), Adhered Slough (20%) Wound Edges: Not Attached, Thick Skin Integrity Problem Comment: Flushed with ns. Mastisol and drape applied adalberto wound. One piece of black veraflo foam to wound bed (small simplace) and then set to suction wihtout leaks. Vac restarted but instillation amount reduced to 18 ml and dwell time dropped to 5 min every 3 hours at - 125 mm Hg suction. Patient had quite a bit of difficulty with pain management despite 2 mg of morphine. Some of the pain was positional as she prefers to lie on her back rather than her side. Family member Helga in room for care and BUILDING STONECUTTER assisted with vac placement. Next vac change due Monday. Please switch to NS instillation once Vashe bottle has been instilled. Dr. Maravilla visualized wound bed.
[2018-05-18] MEDS: BECLOMETHASONE QVAR 80 REDIHALER 120 INH/10.6 GM MDI IH SCH ×2 (10:47→23:20)
[2018-05-18] MEDS: IPRATROPIUM HFA INHALER IH SCH ×2 (10:47→23:19)
[2018-05-18] MEDS: FLUoxetine 20 MG CAP PO SCH (10:52)
--- NOTE | 2018-05-18 11:12 | PCMIDPN ---
Assessment/Plan: # sepsis due to GAS bacteremia source RLE : 05/16 blood cultures are no growth to date. Last high fever 05/16 # Severe right lower extremity cellulitis, this is my 1st exam but friend at bedside endorses significant improvement in intensity of erythema compared to yesterday. Group a strep isolate demonstrates clinda resistance therefore the addition of clinda will not be helpful. --continue elevation right lower extremity and ceftriaxone Medication Ceftriaxone 2 g IV daily, # 2 Micro 05/14 blood cultures 2 sets group a strep 05/16 blood cultures 2 sets NGTD Subjective: Patient with significant pain right lower extremity but it is improved Objective: Vital Signs Temp Pulse Resp BP Pulse Ox 37.2 C 75 14 130/64 H 95 05/18/18 07:26 05/18/18 10:57 05/18/18 10:57 05/18/18 09:01 05/18/18 10:57 Laboratory Results 05/15/18 04:55 05/15/18 04:55 05/17/18 05/18/18 05/19/18 05:59 05:59 05:59 Intake Total 203 120 Output Total 925 1700 Balance -722 -1580 General: Obese woman lying in bed mild distress secondary to right lower extremity pain HEENT: Moist mucous membranes no oral ulcerations Neck: left central line, IJ position Cardiovascular regular rate and rhythm Chest: Poor inspiratory effort no crackles or wheezes Abdomen obese soft nontender Right lower extremity with extensive circumferential cellulitis around the calf with a wound VAC upper mid ramirez, erythema extends lateral thigh and over knee with a smaller amount of thigh involvement medially. Erythema has a robert characteristic - Time Spent With Patient Time Spent with Patient: greater than 35 minutes Time Spent with Patient: Greater than 35 minutes spent on this patients care, greater than 50% of time spent counseling, educating, and coordinating care regarding the above mentioned plan. ICD10 Worksheet Patient Problems: Problems Problem Status Onset Cellulitis Acute Fever Acute Arm pain, left Acute Chest pain, rule out acute myocardial infarction Acute Chronic Disease Management/Transitional Care Program Acute Head injury Acute Laceration Acute Nasal fracture Acute
--- NOTE | 2018-05-18 11:43 | WOCRNPDOC ---
WOCRN Advanced Assessment Note - Skin Integrity Problem, Advanced Assess Right Medial Calf Blister Dressing Type: Open to Air Wound Bed Constitution: Intact Serous Filled Blister Site Measurement - Head-to-Toe Length X Width X Depth (cm): [id number] blister Skin Integrity Problem Comment: Blister from edema and infection. Leave roof intact. Please protect the area so that the blister does not de-roof.
[2018-05-18] MEDS: FUROSEMIDE 20 MG/2 ML VIAL IVP SCH (11:44)
--- NOTE | 2018-05-18 18:03 | HOSPPROG ---
Hospitalist Progress Note Assessment/Plan: Subjective Follow-up on a sepsis and bacteremia and cellulitis. Patient states that she feels her cellulitis is improving she does note occasional shooting like pain in the right lower extremity. Otherwise no acute events overnight. Objective Vital signs as detailed below Acute physical exam General-patient appears comfortable she is awake alert conversant no acute distress. Heart-regular no murmurs appreciated Lungs clear to auscultation normal respiratory effort Abdomen-soft nontender nondistended normal bowel sounds Skin-significant swelling and erythema of the right lower extremity it does appear that the margins are receding from prior delineation. Labs as detailed below Assessment plan Sepsis-monitor parameters with ongoing treatment for strep bacteremia Bacteremia-streptococcal bacteria. Repeat cultures are pending. Appreciate Infectious disease's input on the case. Cellulitis-appears to be improving based upon recession of erythema. Likely streptococcal in nature. Encephalopathy-possible delirium secondary to infectious process. Acute hypoxic respiratory failure-patient typically uses oxygen at nighttime only. Continue to wean during the day as able. Chronic diastolic heart failure-continue medical management with Bumex and Bystolic. Obstructive sleep apnea and obesity hypoventilation syndrome-CPAP therapy at nighttime Pulmonary hypertension-supplemental oxygen for hypoxia Hyperlipidemia-Crestor DVT prophylaxis low-Lovenox Disposition-patient may need inpatient rehab prior to returning home. Objective: Vital Signs Temp Pulse Resp BP Pulse Ox 37.1 C 69 18 130/67 H 100 05/18/18 16:00 05/18/18 16:00 05/18/18 16:00 05/18/18 16:00 05/18/18 16:00 Laboratory Results 05/15/18 04:55 05/15/18 04:55 05/17/18 05/18/18 05/19/18 05:59 05:59 05:59 Intake Total 203 120 Output Total 925 1700 2450 Balance -722 -1580 -2450 PT 14.9 SEC (12.0-15.0) 05/14/18 15:15 INR 1.15 (0.83-1.16) 05/14/18 15:15 ICD10 Worksheet Patient Problems: Problems Problem Status Onset Cellulitis Acute Fever Acute Arm pain, left Acute Chest pain, rule out acute myocardial infarction Acute Chronic Disease Management/Transitional Care Program Acute Head injury Acute Laceration Acute Nasal fracture Acute
[2018-05-18] MEDS: PANTOPRAZOLE SODIUM 40 MG TAB PO SCH (21:33)
[2018-05-18] MEDS: ROSUVASTATIN CALCIUM 10 MG TAB PO SCH (21:34)
[2018-05-19] MEDS: oxyCODONE IR 5 MG TAB PO PRN ×4 (01:52→21:43)
[2018-05-19] MEDS: POTASSIUM CL 20 MEQ TAB PO SCH (08:55)
[2018-05-19] MEDS: NEBIVOLOL HCL 5 MG TAB PO SCH (08:55)
--- NOTE | 2018-05-19 08:55 | SOAPPROG ---
SOAP Progress Note Assessment/Plan: Assessment: 78yo F c RLE cellulitis 2/2 GABHS - VSS, HDS, has been afebrile - pain controlled, per patient much better than previous - RLE: cellulitis regressing, the ankle still has the most red portion but is markedly less tender. VAC to lateral wound, bullae posteriorly looks stable from report - cont elevation, OOBTC with leg elevated. Would hold off on ambulation for now but making progress Plan: 05/19/18 08:53 Subjective: still having intermittent mental status changes, appropriate this AM Objective: Vital Signs Temp Pulse Resp BP Pulse Ox 36.9 C 73 18 140/73 H 94 05/19/18 07:21 05/19/18 07:21 05/19/18 07:21 05/19/18 07:21 05/19/18 07:21 Laboratory Results 05/15/18 04:55 05/15/18 04:55 05/18/18 05/19/18 05/20/18 05:59 05:59 05:59 Intake Total 120 400 Output Total 1700 3750 Balance -1580 -3350 PT 14.9 SEC (12.0-15.0) 05/14/18 15:15 INR 1.15 (0.83-1.16) 05/14/18 15:15 ICD10 Worksheet Patient Problems: Problems Problem Status Onset Cellulitis Acute Fever Acute Arm pain, left Acute Chest pain, rule out acute myocardial infarction Acute Chronic Disease Management/Transitional Care Program Acute Head injury Acute Laceration Acute Nasal fracture Acute
[2018-05-19] MEDS: SENNOSIDES/DOCUSATE SODIUM TAB PO SCH ×2 (08:56→21:43)
[2018-05-19] MEDS: ASPIRIN 81 MG CHEWABLE TAB PO SCH (08:58)
[2018-05-19] MEDS: ENOXAPARIN 40 MG/0.4 ML SYR SC SCH ×2 (08:59→21:44)
[2018-05-19] MEDS: ANASTROZOLE 1 MG TAB PO SCH (08:59)
[2018-05-19] MEDS: GABAPENTIN 300 MG CAP PO SCH ×3 (08:59→21:42)
[2018-05-19] MEDS: FUROSEMIDE 20 MG/2 ML VIAL IVP SCH (08:59)
[2018-05-19] MEDS: ALLOPURINOL 100 MG TAB PO SCH ×2 (08:59→21:43)
[2018-05-19] MEDS: FLUoxetine 20 MG CAP PO SCH (08:59)
[2018-05-19] MEDS: DOXYCYCLINE HYCLATE 100 MG CAP/TAB PO SCH ×2 (08:59→21:42)
[2018-05-19] MEDS: BECLOMETHASONE QVAR 80 REDIHALER 120 INH/10.6 GM MDI IH SCH ×2 (10:24→21:31)
[2018-05-19] MEDS: IPRATROPIUM HFA INHALER IH SCH ×2 (10:24→21:31)
[2018-05-19] MEDS ORDERED: ALTEPLASE 2 MG VIAL IVP PRN (13:04)
--- NOTE | 2018-05-19 13:42 | PCMIDPN ---
Assessment/Plan: # sepsis due to GAS bacteremia source RLE : 05/16 blood cultures are no growth to date. Last high fever 05/16. VSS. Rapid clearance of blood cultures less suggestive of endocarditis and group a strep rarely causes endocarditis. Patient did undergo an echocardiogram which showed some tricuspid regurgitation but no obvious valvular abnormalities but a difficult study --okay to place PICC line --remove left IJ after PICC line placed --will need 2 week IV therapy for negative blood cultures. 05/30/18 stop date # Severe right lower extremity cellulitis : much improved evolving purplish discoloration is expected. Still needs inpatient monitor to assure continued improvement --continue elevation right lower extremity - not elevated at time of my exam --continue ceftriaxone Medication Ceftriaxone 2 g IV daily, # 3 Micro 05/14 blood cultures 2 sets group a strep 05/16 blood cultures 2 sets NGTD Subjective: patient feeling much better today; less pain RLE family at bedside Objective: Vital Signs Temp Pulse Resp BP Pulse Ox 37.0 C 75 21 H 113/61 94 05/19/18 11:38 05/19/18 11:38 05/19/18 11:38 05/19/18 11:38 05/19/18 11:38 Laboratory Results 05/15/18 04:55 05/15/18 04:55 05/18/18 05/19/18 05/20/18 05:59 05:59 05:59 Intake Total 120 400 Output Total 1700 3750 1800 Balance -4155 -6417 -1800 General: Obese woman lying in bed mild distress secondary to right lower extremity pain HEENT: Moist mucous membranes no oral ulcerations Neck: left central line, IJ position Cardiovascular regular rate and rhythm Chest: Poor inspiratory effort no crackles or wheezes Abdomen obese soft nontender Right lower extremity with extensive circumferential cellulitis around the calf with a wound VAC upper mid ramirez, erythema extends lateral thigh and over knee with a smaller amount of thigh involvement medially. Erythema is much less intense today and more purplish in nature. Large intact bulla under ankle with fluid. - Time Spent With Patient Time Spent with Patient: greater than 35 minutes Time Spent with Patient: Greater than 35 minutes spent on this patients care, greater than 50% of time spent counseling, educating, and coordinating care regarding the above mentioned plan. ICD10 Worksheet Patient Problems: Problems Problem Status Onset Cellulitis Acute Fever Acute Arm pain, left Acute Chest pain, rule out acute myocardial infarction Acute Chronic Disease Management/Transitional Care Program Acute Head injury Acute Laceration Acute Nasal fracture Acute
--- NOTE | 2018-05-19 15:44 | ASMTCMCOM ---
CM Note CM Note Notes: Spoke w/pt re; dc SNF. PT/OT recommend SNF, pt seems agreeable but doesn't seem to be able to have an extended conversation about it. She gave permission to speak with her son Lamont [phone], cm called and left vm. DC Plan: SNF Date Signed: 05/19/2018 03:43 PM Electronically Signed By:Sophia Araya RN
--- NOTE | 2018-05-19 16:47 | HOSPPROG ---
Hospitalist Progress Note Assessment/Plan: Subjective Follow-up on sepsis bacteremia and cellulitis. Patient's daughter was present at the bedside today and she was updated on the current clinical status. Thus far the follow-up blood cultures have not shown any growth. Her daughter did ask about her seeming confused at times. I shared with her that I think that she likely has a delirium and that anticipate this will resolve over the coming week. The patient was able to tell me the year location and floor of the hospital that we are on. We also discussed that it has been nearly weeks since her last bowel movement. We discussed using magnesium citrate however her nurse did talk to me a few hours after seeing the patient stated that she did have a bowel movement. Objective Vital signs as detailed below Physical exam General-patient appears comfortable she is awake alert conversant no acute distress. Her speed of speech seems faster today than it did yesterday. Heart-regular no murmurs noted Lungs-Clear to auscultation with normal respiratory effort Abdomen-soft nontender nondistended with normal bowel sounds Skin-still with significant erythema and swelling of the right lower extremity but he does have again appear improved today as compared to yesterday's exam Labs as detailed below Assessment and plan Sepsis-resolved at this point time. Bacteremia-streptococcal bacteria. Repeat cultures negative. I will plan on placing a new PICC line in removing her current PICC line. Continue IV antibiotics until 05/30/2018. Patient is on ceftriaxone. Cellulitis-continue clinical improvement. Encephalopathy-suspected delirium. She seems to be improving. Follow for now with supportive measures and try to minimize pain medications. Acute hypoxic respiratory failure-patient typically uses oxygen only at nighttime. Continue to wean as able. Chronic diastolic heart failure-continue current medical management including Bumex and Bystolic Obstructive sleep apnea-a need to confirm with patient is using CPAP at night or just supplemental oxygen. Pulmonary hypertension-supplemental oxygen for hypoxia. Hyperlipidemia-Crestor DVT prophylaxis-Lovenox Disposition-anticipating inpatient rehab prior to returning home independently where she lived with her before coming to the hospital. Objective: Vital Signs Temp Pulse Resp BP Pulse Ox 37.0 C 75 21 H 113/61 94 05/19/18 11:38 05/19/18 11:38 05/19/18 11:38 05/19/18 11:38 05/19/18 11:38 Laboratory Results 05/15/18 04:55 06/19/18 04:55 05/18/18 05/19/18 05/20/18 05:59 05:59 05:59 Intake Total 120 400 Output Total 1700 3750 1800 Balance -1580 -3350 -1800 PT 14.9 SEC (12.0-15.0) 05/14/18 15:15 INR 1.15 (0.83-1.16) 05/14/18 15:15 ICD10 Worksheet Patient Problems: Problems Problem Status Onset Cellulitis Acute Fever Acute Arm pain, left Acute Chest pain, rule out acute myocardial infarction Acute Chronic Disease Management/Transitional Care Program Acute Head injury Acute Laceration Acute Nasal fracture Acute
[2018-05-19] MEDS: PANTOPRAZOLE SODIUM 40 MG TAB PO SCH (21:43)
[2018-05-19] MEDS: ROSUVASTATIN CALCIUM 10 MG TAB PO SCH (21:43)
[2018-05-20 06:06] LABS: PLATELET COUNT 135 10^3/uL (150-400)
--- NOTE | 2018-05-20 08:22 | SOAPPROG ---
SOAP Progress Note Assessment/Plan: Assessment: 78 y/o F admitted for cellulitis of RLE S: Having back pain from hospital bed. Pain in RLE stable. O: Alert Afebrile RRR No increased WOB RLE: improved coloration from yesterday. Wound vac to suction. Plan: Repositioned pt in bed, which made her more comfortable. Continue IV abx and leg elevation. 05/20/18 08:20 Objective: Vital Signs Temp Pulse Resp BP Pulse Ox 36.9 C 74 20 118/62 93 05/20/18 08:00 05/20/18 08:00 05/20/18 08:00 05/20/18 08:00 05/20/18 08:00 Laboratory Results 05/20/18 05:50 05/20/18 05:50 05/19/18 05/20/18 05/21/18 05:59 05:59 05:59 Intake Total 400 240 Output Total 3750 2750 Balance -3350 -2510 PT 14.9 SEC (12.0-15.0) 05/14/18 15:15 INR 1.15 (0.83-1.16) 05/14/18 15:15 ICD10 Worksheet Patient Problems: Problems Problem Status Onset Cellulitis Acute Fever Acute Arm pain, left Acute Chest pain, rule out acute myocardial infarction Acute Chronic Disease Management/Transitional Care Program Acute Head injury Acute Laceration Acute Nasal fracture Acute
[2018-05-20] MEDS: oxyCODONE IR 5 MG TAB PO PRN ×4 (09:23→22:42)
[2018-05-20] MEDS: ENOXAPARIN 40 MG/0.4 ML SYR SC SCH ×2 (09:24→22:43)
[2018-05-20] MEDS: FUROSEMIDE 20 MG/2 ML VIAL IVP SCH (09:24)
[2018-05-20] MEDS: ASPIRIN 81 MG CHEWABLE TAB PO SCH (09:24)
[2018-05-20] MEDS: SENNOSIDES/DOCUSATE SODIUM TAB PO SCH ×2 (09:24→22:42)
[2018-05-20] MEDS: ALLOPURINOL 100 MG TAB PO SCH ×2 (09:25→22:40)
[2018-05-20] MEDS: FLUoxetine 20 MG CAP PO SCH (09:25)
[2018-05-20] MEDS: DOXYCYCLINE HYCLATE 100 MG CAP/TAB PO SCH ×2 (09:25→22:41)
[2018-05-20] MEDS: POTASSIUM CL 20 MEQ TAB PO SCH (09:25)
[2018-05-20] MEDS: ANASTROZOLE 1 MG TAB PO SCH (09:25)
[2018-05-20] MEDS: GABAPENTIN 300 MG CAP PO SCH ×3 (09:25→22:39)
[2018-05-20] MEDS: NEBIVOLOL HCL 5 MG TAB PO SCH (09:25)
[2018-05-20] MEDS: IPRATROPIUM HFA INHALER IH SCH ×2 (10:17→21:49)
[2018-05-20] MEDS: IPRATROPIUM/ALBUTEROL 3 ML DEYVIAL IH PRN (10:17)
[2018-05-20] MEDS: BECLOMETHASONE QVAR 80 REDIHALER 120 INH/10.6 GM MDI IH SCH ×2 (10:17→21:50)
--- NOTE | 2018-05-20 10:54 | PCMIDPN ---
Assessment/Plan: # sepsis due to GAS bacteremia source RLE : 05/16 blood cultures show clearance. Last fever 4 days ago. Rapid clearance of blood cultures less suggestive of endocarditis and group a strep rarely causes endocarditis. Patient did undergo an echocardiogram which showed some tricuspid regurgitation but no obvious valvular abnormalities but a difficult study --will need 2 week IV therapy for negative blood cultures. 05/30/18 stop date --PICC line is in, Remove L I # Severe right lower extremity cellulitis :significant recession of erythema today and much less intense. 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 Ceftriaxone 2 g IV daily, # 4 doxycycline 100mg PO BID Micro 05/14 blood cultures 2 sets group a strep 05/16 blood cultures 2 sets NGTD Subjective: feeling a little more SOB today less pain RLE no diarrhea no rash Objective: Vital Signs Temp Pulse Resp BP Pulse Ox 36.9 C 73 18 118/62 96 05/20/18 08:00 05/20/18 10:21 05/20/18 10:21 05/20/18 09:25 05/20/18 10:21 Laboratory Results 05/20/18 05:50 05/20/18 05:50 05/19/18 05/20/18 05/21/18 05:59 05:59 05:59 Intake Total 400 240 Output Total 3750 2750 Balance -3350 -2510 Gen: pleasant obese male NAD CV: RRR Chest: decreased bs throughout Abd: soft NT R LE with significant recession of erythema upper thigh and knee. Anterior ramirez with purplish erythema. Foot with decreased erythema, but compared to other areas today, most intense of remaining areas of erythema; pulse not palpable but cap refill okay RUE PICC c/d/i - Time Spent With Patient Time Spent with Patient: greater than 35 minutes (daughter and at bedside reviewed plan of care; care coordinated w case management regarding dc to rehab vs SNF) Time Spent with Patient: Greater than 35 minutes spent on this patients care, greater than 50% of time spent counseling, educating, and coordinating care regarding the above mentioned plan. ICD10 Worksheet Patient Problems: Problems Problem Status Onset Cellulitis Acute Fever Acute Arm pain, left Acute Chest pain, rule out acute myocardial infarction Acute Chronic Disease Management/Transitional Care Program Acute Head injury Acute Laceration Acute Nasal fracture Acute
--- NOTE | 2018-05-20 18:20 | HOSPPROG ---
Hospitalist Progress Note Assessment/Plan: Subjective Follow-up on sepsis and bacteremia and cellulitis. The the patient written reportedly had increased respiratory effort earlier this morning. After reviewing the issue with her nurse it seemed like he was in the setting of acute pain of the right lower extremity. The respiratory distress was also discussed with Dr. Nice. On evaluation when I would not see her she appeared more comfortable than I was able to wean her completely off of oxygen and back onto room air actually. I discussed with the patient and her daughter as well as her present at the bedside that 1 concern would be the potential for a pulmonary embolism as she is on Arimidex for breast cancer. However I should with them that I think it would be unusual to be able to wean down to room air in the presence of a pulmonary embolism. We discussed obtaining a repeat lower extremity ultrasound to reassess for the possibility of a deep vein thrombosis. Objective Vital signs as detailed below Physical exam General-patient appears comfortable she is awake alert conversant. She seems oriented as she did yesterday. Heart-regular rate and rhythm no murmurs appreciated Lungs-Clear to auscultation without any significant wheezing on the time of my evaluation her respiratory effort was normal. Abdomen-soft nontender nondistended normal bowel sounds Skin-still with significant erythema of right lower extremity but appears to be improving slowly each day. Definitely no significant worsening noted. Labs as detailed below Assessment and plan Bacteremia-strep bacteremia. Repeat blood cultures negative. Patient has a new PICC line as of today and will continue with IV ceftriaxone per ID. She will continue IV antibiotics until 05/30/2018. Cellulitis-severe but slow gradual improvement. Encephalopathy-suspecting delirium. Although she seems to be improving at this point time. Continue to follow for now with supportive measures and try to minimize pain medications. Acute hypoxic respiratory failure-patient typically uses oxygen at nighttime. She did have a abrupt increased need for oxygen early this morning in the setting of worsening right lower extremity pain. On my evaluation was able to wean her to room air. Repeat lower extremity ultrasound did not reveal the presence of a deep vein thrombosis. Continue CT imaging of the chest but for now will hold off as she seems relatively stable. Chronic diastolic heart failure-continue current medical management including Bumex and Bystolic Obstructive sleep apnea-supplemental oxygen at nighttime. Hyperlipidemia-Crestor DVT prophylaxis-Lovenox q.12 hours Disposition -looking at rehab options before returning at home where she was living independently prior to coming into the hospital with her Objective: Vital Signs Temp Pulse Resp BP Pulse Ox 37.0 C 72 16 120/67 95 05/20/18 15:50 05/20/18 15:50 05/20/18 15:50 05/20/18 15:50 05/20/18 15:50 Laboratory Results 05/20/18 05:50 05/20/18 05:50 05/19/18 05/20/18 05/21/18 05:59 05:59 05:59 Intake Total 400 240 Output Total 5379 7470 Balance -4750 -9230 PT 14.9 SEC (12.0-15.0) 05/14/18 15:15 INR 1.15 (0.83-1.16) 05/14/18 15:15 ICD10 Worksheet Patient Problems: Problems Problem Status Onset Cellulitis Acute Fever Acute Arm pain, left Acute Chest pain, rule out acute myocardial infarction Acute Chronic Disease Management/Transitional Care Program Acute Head injury Acute Laceration Acute Nasal fracture Acute
[2018-05-20] MEDS: ROSUVASTATIN CALCIUM 10 MG TAB PO SCH (22:40)
[2018-05-20] MEDS: PANTOPRAZOLE SODIUM 40 MG TAB PO SCH (22:41)
[2018-05-21] MEDS: oxyCODONE IR 5 MG TAB PO PRN ×3 (08:10→21:58)
--- NOTE | 2018-05-21 09:01 | WOCRNPDOC ---
WOCRN Advanced Assessment Note - Skin Integrity Problem, Advanced Assess Right Medial Calf Blister Dressing Type: Foam Bordered (cutimed sorbact) Dressing Description: Intact, Shadowed Exudate Amount: Minimal Exudate Color: Yellow Exudate Characteristic(s): Serous Integumentary Issue Intervention: Dressing Changed, Dressing Initialed & Dated Natalie Wound Tissue: Erythema Wound Bed Constitution: Draining Serous Blister Site Odor: None Site Measurement - Head-to-Toe Length X Width X Depth (cm): 6.2x6.3 Skin Integrity Problem Comment: Serous filled bulla that is draining. Replaced cutimed sorbact dressing and secured with medipore tape. Right Lateral Ankle Traumatic Wound Dressing Type: Wound Vac (Veraflo) Dressing Description: Clean/Dry, Intact Exudate Amount: Moderate Exudate Color: Reddish/Yellow Integumentary Issue Intervention: Dressing Changed Natalie Wound Tissue: Blanching, Erythema, Macerated, Painful/Tender Natalie Wound Swelling: Mild Wound Bed Color: Red, Yellow Wound Bed Constitution: Granulation Tissue (70%), Adhered Slough (30%) Wound Edges: Epithelizing Site Odor: None Site Measurement - Head-to-Toe Length X Width X Depth (cm): 5.3x4.8x0.5 Skin Integrity Problem Comment: Veraflo stopped and patient given pain medication prior to dressing removal. Dressing removed. Periwound skin prepped with no sting skin prep and wound window-paned with vac drape. Wound vac replaced with one piece of black simplace foam. Wound vac on at -125mmHG continuous. No leaks detected. Patient tolerated vac procedure with oral meds moderately well. Patient requested IV pain meds, but received PO pain meds. Patient tolerated dressing change with PO pain meds just as well as with IV pain meds. Judi NJ in room for care. Wound care will round again on Monday. Vac change due on Monday.
[2018-05-21] MEDS: IPRATROPIUM HFA INHALER IH SCH ×2 (09:43→20:45)
[2018-05-21] MEDS: BECLOMETHASONE QVAR 80 REDIHALER 120 INH/10.6 GM MDI IH SCH ×2 (09:43→20:45)
[2018-05-21] MEDS: FUROSEMIDE 20 MG/2 ML VIAL IVP SCH (11:04)
[2018-05-21] MEDS: ENOXAPARIN 40 MG/0.4 ML SYR SC SCH ×2 (11:10→20:15)
[2018-05-21] MEDS: ASPIRIN 81 MG CHEWABLE TAB PO SCH (11:13)
[2018-05-21] MEDS: ALLOPURINOL 100 MG TAB PO SCH ×2 (11:14→20:18)
[2018-05-21] MEDS: FLUoxetine 20 MG CAP PO SCH (11:14)
[2018-05-21] MEDS: POTASSIUM CL 20 MEQ TAB PO SCH (11:15)
[2018-05-21] MEDS: SENNOSIDES/DOCUSATE SODIUM TAB PO SCH ×2 (11:16→20:16)
[2018-05-21] MEDS: GABAPENTIN 300 MG CAP PO SCH ×3 (11:17→21:57)
[2018-05-21] MEDS: NEBIVOLOL HCL 5 MG TAB PO SCH (11:17)
[2018-05-21] MEDS: ANASTROZOLE 1 MG TAB PO SCH (11:18)
[2018-05-21] MEDS: DOXYCYCLINE HYCLATE 100 MG CAP/TAB PO SCH ×2 (11:18→20:16)
--- NOTE | 2018-05-21 14:21 | PCMIDPN ---
Assessment/Plan: Assessment: Group a strep bacteremia secondary to right lower extremity cellulitis. Cellulitis is significantly improved. Patient remains afebrile. Patient doing very well on IV ceftriaxone. Agree with plan for 2 weeks total treatment from cleared cultures. 05/30/2018 stop date. Search for disposition ongoing. Plan: 1. Continue IV ceftriaxone for total of 2 weeks from blood culture clearance. stop date. 2. Case management disposition to custodial facility. Subjective: Patient is resting in her hospital bed. She states that her leg feels better. She states that still is a bit discolored however. No fevers or chills. Tolerating ceftriaxone without issue. Objective: Ceftriaxone # 5 Vital Signs Temp Pulse Resp BP Pulse Ox 36.9 C 72 16 119/64 97 05/21/18 11:59 05/21/18 11:59 05/21/18 11:59 05/21/18 11:59 05/21/18 11:59 Microbiology 05/16/18 10:00 Blood Culture - Final Blood 05/16/18 09:45 Blood Culture - Final Blood Laboratory Results 05/20/18 05:50 05/20/18 05:50 05/20/18 05/21/18 05/22/18 05:59 05:59 05:59 Intake Total 240 300 Output Total 4550 400 1550 Balance -4310 -100 -1550 - Physical Exam General Appearance: WD/WN, alert, no apparent distress, obese, non-toxic Respiratory: lungs clear, normal breath sounds, No respiratory distress Cardiac/Chest: regular rate, rhythm, No tachycardia Extremities: non-tender, swelling, erythema (Dusky right lower extremity), No normal inspection Skin: normal color, warm/dry, No rash Neuro/Psych: alert, normal mood/affect, oriented x 3 ICD10 Worksheet Patient Problems: Problems Problem Status Onset Cellulitis Acute Fever Acute Arm pain, left Acute Chest pain, rule out acute myocardial infarction Acute Chronic Disease Management/Transitional Care Program Acute Head injury Acute Laceration Acute Nasal fracture Acute
--- NOTE | 2018-05-21 14:26 | PDIAF ---
- Diagnosis Diagnosis: Group a strep bacteremia with right lower extremity cellulitis Code Status: Full Code - Medication Management Discharge Medications: Medications to Continue on Transfer Allopurinol [Allopurinol 100 MG (*)] 200 mg PO BID 03/30/18 [Last Taken 09:00] Aspirin [Aspirin 81mg (*)] 81 mg PO DAILY 03/30/18 [Last Taken 05/14/18] Bumetanide [Bumex (*)] 2 mg PO DAILY 03/30/18 [Last Taken 05/14/18] Doxycycline Hyclate [Vibramycin 100 MG (*)] 100 mg PO BID 03/30/18 [Last Taken 05/14/18 09:00] FLUoxetine [Prozac 20 MG (*)] 40 mg PO DAILY 03/30/18 [Last Taken 05/14/18] Gabapentin [Neurontin 300 MG (*)] 300 mg PO TID 03/30/18 [Last Taken 05/14/18 09 :00] Herbals/Supplements -Info Only 1 ea PO DAILY 03/30/18 [Last Taken 04/20/18] Ipratropium [Atrovent Hfa (*)] 2 inh PO BID 03/30/18 [Last Taken 05/14/18 09:00] Multivitamins [Multivitamin (*)] 1 tab PO DAILY 03/30/18 [Last Taken 05/14/18] Nebivolol HCl [Bystolic 5 mg (*)] 5 mg PO DAILY 03/30/18 [Last Taken 05/14/18] Omeprazole 40 mg PO HS 03/30/18 [Last Taken 05/13/18] Potassium Cl [Klor-Con 20 meq (*)] 40 meq PO DAILY 03/30/18 [Last Taken 05/14/18 ] Rosuvastatin Calcium [Crestor] 5 mg PO HS 03/30/18 [Last Taken 05/13/18] Anastrozole [Arimidex 1 mg (*)] 1 mg PO DAILY 05/14/18 [Last Taken 05/14/18] Beclomethasone Qvar 80 [Qvar 80 Redihaler (*)] 2 inh IH BID 05/14/18 [Last Taken 05/14/18 09:00] Cholecalciferol Vit D3 [Vitamin D3 2000 units tab (OTC)] 5,000 units PO DAILY [Last Taken 05/14/18] Ibuprofen [Motrin (*)] 200 mg PO QID PRN 05/14/18 [Last Taken Unknown] Indomethacin [Indocin 25 mg (*)] 50 mg PO DAILY PRN 05/14/18 [Last Taken Unknown ] oxyCODONE/APAP 5/325 [Percocet 5/325 (*)] 1 - 2 tab PO Q4 PRN 05/14/18 [Last Taken Unknown] O And M Supervisor Antibiotics: Ceftriaxone 2 g IV Q 24 hr O And M Supervisor Antibiotic Stop Date: 05/30/18 Discharge Medications: Refer to the Discharge Home Medication list for PRN reason. PICC Care - Routine: Yes - Orders Services needed: Registered Nurse Isolation Type: Chemotherapy Isolation, Contact Isolation Diet Texture: Regular Texture Diet, Thin Liquids Additional Instructions: Wound vac orders 1.Vac machine should be operating at -125mmHg Continuous. Black foam to wound bed. Elena Aly RN, Wound care team - Labs/Radiology CBC w/diff Date: 05/24/18 (Weekly) CMP Date: 05/24/18 (Weekly) Call or Fax Lab and Imaging Results to: Dr. Mendel Gunn - Follow Up Care Current Providers and Referrals: Gary Bush MD [Primary Care Provider] - As per Instructions
--- NOTE | 2018-05-21 16:55 | ASMTCMCOM ---
CM Note CM Note Notes: Spoke with patient and her Naga about the recommendation for SNF rehab. Patient reports she has been in 3 SNF programs and they were not properly staffed and she does not want to return there. Patient prefers to go to LTAC level of care. I explained that PT had not made that recommendation and her insurance may not reimburse for a higher level of care if she does not need it. I will send a referral to [facility] at patient's request in case they have a rehab program separate from the LTAC. Spoke with patient's son Moshe and he states his mother does not want to return to SNF care and if there is any way she can qualify for LTAC, the family would like that option to be pursued. CM in the process of determining what options are realistic. CM will follow. Date Signed: 05/21/2018 04:54 PM Electronically Signed By:Xochitl Ortiz LCSW
--- NOTE | 2018-05-21 19:09 | HOSPPROG ---
Hospitalist Progress Note Assessment/Plan: Subjective Follow-up on sepsis and bacteremia and cellulitis. No acute events overnight. Patient had some issues with labored breathing yesterday morning but seems of done well since that time. No new complaints today. Objective Vitals as detailed below Physical exam General patient appears comfortable she is sitting in chair at the bedside she seems more energetic today interactive as well as compared to days prior Heart-regular rate and rhythm no murmur Lungs clear to auscultation without significant wheezing and respiratory effort was normal Abdomen-soft nontender nondistended with normal bowel sounds Skin-significant improvement of the erythema of the right lower extremity she has residual bruising noted of the right lower extremity Labs as detailed below Assessment plan Bacteremia-patient was found to have streptococcal bacteremia. Repeat blood cultures are negative. The patient has a new PICC line as of yesterday and will continue with IV ceftriaxone until 05/30/2018 per ID's recommendations. Cellulitis-significant improvement over the prior days now with residual bruising of the right lower extremity. Encephalopathy-I suspect she had a mild delirium earlier in the hospital course however this seems to have cleared at the current time. Acute hypoxic respiratory failure-patient typically uses oxygen at nighttime only. She did have a rather abrupt increased need for oxygen yesterday but I was able to wean her on room air on my evaluation. Repeat lower extremity imaging did not show any evidence of the deep vein thrombosis. A considered CT scan of the chest but considering that I was able to wean her room air IIA deferred for the current time. Overnight she has has stable respiratory status. Chronic diastolic heart failure-continue current medical management cue including Bumex and Bystolic. Hyperlipidemia-Crestor Breast cancer-patient was recently diagnosed with left-sided breast cancer and was treated with lumpectomy. Three lymph nodes were obtained none of which had evidence of spread of the cancer. There is no plan for chemotherapy or radiation treatments. She is on Arimidex. DVT prophylaxis-continue Lovenox every 12 hr. Disposition-looking at rehab options currently. She had a previous rehab stay in [address] [place] [id number] which she was pleased with and is looking at possibly the same facility as an option. Objective: Vital Signs Temp Pulse Resp BP Pulse Ox 37.3 C 74 15 116/57 L 95 05/21/18 15:40 05/21/18 15:40 05/21/18 15:40 05/21/18 15:40 05/21/18 15:40 Microbiology 05/16/18 10:00 Blood Culture - Final Blood 05/16/18 09:45 Blood Culture - Final Blood Laboratory Results 05/20/18 05:50 05/20/18 05:50 05/20/18 05/21/18 05/22/18 05:59 05:59 05:59 Intake Total 240 300 50 Output Total 4550 400 1750 Balance -4310 -100 -1700 PT 14.9 SEC (12.0-15.0) 05/14/18 15:15 INR 1.15 (0.83-1.16) 05/14/18 15:15 ICD10 Worksheet Patient Problems: Problems Problem Status Onset Cellulitis Acute Fever Acute Arm pain, left Acute Chest pain, rule out acute myocardial infarction Acute Chronic Disease Management/Transitional Care Program Acute Head injury Acute Laceration Acute Nasal fracture Acute
[2018-05-21] MEDS: PANTOPRAZOLE SODIUM 40 MG TAB PO SCH (20:16)
[2018-05-21] MEDS: ROSUVASTATIN CALCIUM 10 MG TAB PO SCH (20:17)
[2018-05-22 07:05] LABS: PLATELET COUNT 181 10^3/uL (150-400)
[2018-05-22] MEDS: IPRATROPIUM HFA INHALER IH SCH ×2 (08:55→21:57)
[2018-05-22] MEDS: BECLOMETHASONE QVAR 80 REDIHALER 120 INH/10.6 GM MDI IH SCH ×2 (08:55→21:57)
[2018-05-22] MEDS: oxyCODONE IR 5 MG TAB PO PRN ×3 (09:55→21:35)
[2018-05-22] MEDS: FLUoxetine 20 MG CAP PO SCH (10:11)
[2018-05-22] MEDS: ALLOPURINOL 100 MG TAB PO SCH ×2 (10:12→21:36)
[2018-05-22] MEDS: DOXYCYCLINE HYCLATE 100 MG CAP/TAB PO SCH ×2 (10:14→21:36)
[2018-05-22] MEDS: GABAPENTIN 300 MG CAP PO SCH ×3 (10:14→21:35)
[2018-05-22] MEDS: NEBIVOLOL HCL 5 MG TAB PO SCH (10:14)
[2018-05-22] MEDS: POTASSIUM CL 20 MEQ TAB PO SCH (10:15)
[2018-05-22] MEDS: FUROSEMIDE 20 MG/2 ML VIAL IVP SCH (10:20)
[2018-05-22] MEDS: ANASTROZOLE 1 MG TAB PO SCH (10:22)
[2018-05-22] MEDS: SENNOSIDES/DOCUSATE SODIUM TAB PO SCH ×2 (10:23→21:35)
[2018-05-22] MEDS: ASPIRIN 81 MG CHEWABLE TAB PO SCH (10:24)
[2018-05-22] MEDS: ENOXAPARIN 40 MG/0.4 ML SYR SC SCH ×2 (10:26→21:35)
--- NOTE | 2018-05-22 11:30 | ASMTCMCOM ---
CM Note CM Note Notes: Spoke with [facility] who states patient does not qualify for either LTAC or their inpatient rehab program which requires patients to be ready for 3 hours per day physical activity. Spoke with patient and her to let her know [facility] was not an option for her at this time. Patient states she does not trust fdc physicians and cannot get comfortable with going to a SNF. Encouraged patient to discuss this with the physician/hospitalist to see if they have thoughts on the level of care she needs at d/c. CM will follow. Date Signed: 05/22/2018 11:30 AM Electronically Signed By:Xochitl Ortiz LCSW
--- NOTE | 2018-05-22 13:04 | SOAPPROG ---
SOAP Progress Note Assessment/Plan: Assessment: 78 yo female admitted on 05/14/18 for R lower extremity cellulitis causing sepsis , strep pyogenes bacteremia, and congestive heart failure. Cellulitus improved. Regarding her RLE, options are to either do a skin graft followed by wound VAC for 1 week or continue with secondary intention with a wound VAC in place for 1 month and total healing time around 8 weeks. The obvious benefit to a skin graft is that the wound would be healed faster. However, it does require general anesthesia and Gisselle is just now gaining strength back S: Feeling better today. Back pain has resolved. O: Patient is sitting in chair next a hospital bed. She is smiling in good spirits. RLE: Wound VAC in place on lateral wound. Violaceous to mid calf. Minimal swelling as compared to left lower extremity. Overall, she is less edematous. She has residual ecchymosis and petechia circumferentially on her distal calf. Bulla on medial aspect is covered with a dressing and draining fluid. Part of bulla superiorly is open. Distal to below, wound is covered with an Allevyn dressing. Alert Appropriate mood and affect 05/23/18 07:56 Objective: Vital Signs Temp Pulse Resp BP Pulse Ox 36.6 C 67 14 151/62 H 92 05/22/18 08:00 05/22/18 08:55 05/22/18 08:55 05/22/18 08:00 05/22/18 08:55 Microbiology 05/16/18 10:00 Blood Culture - Final Blood 05/16/18 09:45 Blood Culture - Final Blood Laboratory Results 05/22/18 06:30 05/22/18 06:30 05/21/18 05/22/18 05/23/18 05:59 05:59 05:59 Intake Total 300 500 Output Total 400 2050 Balance -100 -1550 PT 14.9 SEC (12.0-15.0) 05/14/18 15:15 INR 1.15 (0.83-1.16) 05/14/18 15:15 ICD10 Worksheet Patient Problems: Problems Problem Status Onset Cellulitis Acute Fever Acute Arm pain, left Acute Chest pain, rule out acute myocardial infarction Acute Chronic Disease Management/Transitional Care Program Acute Head injury Acute Laceration Acute Nasal fracture Acute
--- NOTE | 2018-05-22 16:14 | ASMTCMCOM ---
CM Note CM Note Notes: [facility] called to let us know they have an open case on [facility]. They were informed patient hasn't made a decision on SNF placement yet. CM will follow. Date Signed: 05/22/2018 04:14 PM Electronically Signed By:Xochitl Ortiz LCSW
--- NOTE | 2018-05-22 19:04 | PCMIDPN ---
Assessment/Plan: Assessment/Plan: * Sepsis due to group A streptococcal bacteremia associated with right lower extremity cellulitis: Marked improvement in cellulitis which is resolving. Plan ceftriaxone through 05/30/2018 which represents 2 weeks of antibiotic therapy post clearance of bacteremia. Assess LFTs on ceftriaxone therapy. 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 Anticipate duration of therapy is indefinite. 05/22/18 19:01 05/22/18 19:03 Subjective: Patient notes significant decrease in right lower extremity pain and overall feels markedly improved. Surgical notes were reviewed regarding possible skin graft closure. Objective: Vital Signs Temp Pulse Resp BP Pulse Ox 37.1 C 69 18 107/58 L 98 05/22/18 16:00 05/22/18 16:00 05/22/18 16:00 05/22/18 16:00 05/22/18 16:00 Laboratory Results 05/22/18 06:30 05/22/18 06:30 05/21/18 05/22/18 05/23/18 05:59 05:59 05:59 Intake Total 300 500 Output Total 400 2050 1200 Balance -100 -1550 -1200 Ceftriaxone # 6 - Physical Exam General Appearance: alert, no apparent distress EENT: No scleral icterus, No thrush Cardiac/Chest: regular rate, rhythm Extremities: inflammation (Right lower extremity with significant decrease in cellulitis with more violaceous hue in areas where previously significantly erythematous; lateral bulla weeping serous fluid) - Time Spent With Patient Time Spent with Patient: greater than 25 minutes Time Spent with Patient: Greater than 25 minutes spent on this patients care, greater than 50% of time spent counseling, educating, and coordinating care regarding the above mentioned plan. ICD10 Worksheet Patient Problems: Problems Problem Status Onset Cellulitis Acute Fever Acute Arm pain, left Acute Chest pain, rule out acute myocardial infarction Acute Chronic Disease Management/Transitional Care Program Acute Head injury Acute Laceration Acute Nasal fracture Acute
--- NOTE | 2018-05-22 19:45 | HOSPPROG ---
Hospitalist Progress Note Assessment/Plan: DIAGNOSES: * acute sepsis * group a strep bacteremia with cellulitis and multiple wounds on her right lower extremity, the largest currently being treated with wound VAC * prior history of MRSA infection related to hip arthroplasty on chronic suppressive doxycycline * acute encephalopathy, multifactorial, resolved * acute hypoxemia episode, resolved, uncertain etiology * chronic sleep apnea on CPAP, chronic pulmonary hypertension * market generalized deconditioning and weakness * history of breast cancer with lumpectomy last month, did well with approximately 90 min general anesthesia for the lumpectomy I reviewed the case in detail today with Dr. Tayler Maravilla. She requested that I assessed the patient for fitness for surgery including skin grafting of the major wound on her leg. Her concern was that there are enough acute issues that she was uncertain whether the patient was actually a great candidate to go through anesthesia and surgery. Her feeling was that the patient's wound would heal either way with either ongoing wound VAC care or a skin graft, but that is skin graft offer much more rapid resolution of the open wound. This could improve mobility, convenience, and comfort for the patient. As I assess the patient the 1st thing remarkable is that she did successfully do a 90 min general anesthesia for a lumpectomy in early March of this year. She does have chronic pulmonary hypertension, and does have some chronic exertional dyspnea related to that. However as I talked to our it is difficult to determine whether her chronic orthopedic issues or her dyspnea impede her walking more. Up until the time of her fall recently, she was walking a mile a day though would sometimes have to stop to rest during that walk. She has been largely using a wheelchair or scooter out of the house for quite some time due to a chronic orthopedic issues. Here in the hospital she did have some brief hypoxemia during the night morning the other day but I believe this is likely related to her sleep apnea, recumbency, atelectasis and other acute issues here. At this time she is quite comfortable without dyspnea on 2 L nasal cannula. She has now had nothing that sounds like angina and has had no signs of left-sided heart failure. There is probably some mild chronic right heart failure due her pulmonary hypertension. Early on in her hospital stay there was some mild elevations of cardiac troponin but I believe that these likely represented a demand ischemia due to her acute sepsis as opposed to any kind of acute coronary syndrome. Her EKGs were unremarkable and there has not been any angina type symptom. Echocardiogram does show good left ventricular systolic function with no definite wall motion abnormalities. Overall I think that her perioperative risks are low enough that it is very reasonable to proceed with skin grafting if that is the most appropriate management of her wound. She would have some slightly increased risk of perioperative respiratory events, but numerically this risk is reasonably low in the should be very treatable. When I reviewed this with the patient she was not sure she felt ready to go through with surgery at this time. I discussed with her that at the moment she should think through this over the night and see what she feels tomorrow, making sure she asks Dr. Maravilla and me any further questions she has. As it is felt that she will heal her wounds in time either way, it is very reasonable for the patient to make a determination as to whether she feels like skin graft surgery or ongoing wound VAC care would be more appropriate for her. She does say that she is feeling better today, and if she continues to gain strength and mobility and feel better over the next day or 2, she may feel more comfortable with the idea of surgery. She actually does like the sound of getting her wound healed up more quickly, but wants to take my advice and consider her situation overnight. PLANS: * Continue current Rocephin through May 30 * Continue current wound care at this time * As above of discussed options for wound care beyond that with the patient, and suggested she take overnight to consider what her thoughts are regarding skin graft verses continued wound care with wound VAC * Physical occupational therapy * Continue CPAP * Avoiding sedating medicines as possible, continue other standard measures for encephalopathy * Eventual outpatient follow-up with Oncology for her breast cancer SUBJECTIVE: Feels better today overall. Breathing is very comfortable and at her baseline Still some pain but not bad Eating well. Feels better in terms of her mentation OBJECTIVE Vitals reviewed: Stable without fever Exam: alert oriented skin warm dry color ok resps not labored lungs clear BSs heart regular abd soft nondistended nontender, bowel sounds present limbs warm, wounds examined, this is my 1st examination of her legs iv site ok Laboratory data: Stable CBC and metabolic panel today Objective: Vital Signs Temp Pulse Resp BP Pulse Ox 37.1 C 69 18 107/58 L 98 05/22/18 16:00 05/22/18 16:05/22/18 16:05/22/18 16:00 05/22/18 16:00 Laboratory Results 05/22/18 06:30 05/22/18 06:30 05/21/18 05/22/18 05/23/18 06:59 06:59 06:59 Intake Total 300 500 Output Total 400 0 1200 Balance -100 -1550 -1200 PT 14.9 SEC (12.0-15.0) 05/14/18 15:15 INR 1.15 (0.83-1.16) 05/14/18 15:15 - Time Spent With Patient Time Spent with Patient: greater than 35 minutes Time Spent with Patient: Greater than 35 minutes spent on this patients care, greater than 50% of time spent counseling, educating, and coordinating care regarding the above mentioned plan. ICD10 Worksheet Patient Problems: Problems Problem Status Onset Cellulitis Acute Fever Acute Arm pain, left Acute Chest pain, rule out acute myocardial infarction Acute Chronic Disease Management/Transitional Care Program Acute Head injury Acute Laceration Acute Nasal fracture Acute
[2018-05-22] MEDS: ROSUVASTATIN CALCIUM 10 MG TAB PO SCH (21:36)
[2018-05-22] MEDS: PANTOPRAZOLE SODIUM 40 MG TAB PO SCH (21:36)
[2018-05-23] MEDS: oxyCODONE IR 5 MG TAB PO PRN ×4 (08:38→23:08)
[2018-05-23] MEDS: ENOXAPARIN 40 MG/0.4 ML SYR SC SCH ×2 (08:39→21:16)
[2018-05-23] MEDS: GABAPENTIN 300 MG CAP PO SCH ×3 (08:39→21:16)
[2018-05-23] MEDS: NEBIVOLOL HCL 5 MG TAB PO SCH (08:40)
[2018-05-23] MEDS: FLUoxetine 20 MG CAP PO SCH (08:40)
[2018-05-23] MEDS: SENNOSIDES/DOCUSATE SODIUM TAB PO SCH ×2 (08:40→21:15)
[2018-05-23] MEDS: ALLOPURINOL 100 MG TAB PO SCH ×2 (08:40→21:16)
[2018-05-23] MEDS: ASPIRIN 81 MG CHEWABLE TAB PO SCH (08:40)
[2018-05-23] MEDS: DOXYCYCLINE HYCLATE 100 MG CAP/TAB PO SCH ×2 (08:41→21:15)
[2018-05-23] MEDS: POTASSIUM CL 20 MEQ TAB PO SCH (08:41)
[2018-05-23] MEDS: ANASTROZOLE 1 MG TAB PO SCH (08:41)
[2018-05-23] MEDS: BECLOMETHASONE QVAR 80 REDIHALER 120 INH/10.6 GM MDI IH SCH ×3 (08:46→20:53)
[2018-05-23] MEDS: IPRATROPIUM HFA INHALER IH SCH ×3 (08:47→20:53)
[2018-05-23] MEDS: FUROSEMIDE 20 MG/2 ML VIAL IVP SCH (08:47)
--- NOTE | 2018-05-23 09:53 | PCMIDPN ---
Assessment/Plan: # sepsis due to GAS bacteremia source RLE : 05/16 blood cultures show clearance. Last fever 4 days ago. Rapid clearance of blood cultures less suggestive of endocarditis and group a strep rarely causes endocarditis. ECHO without suggestion of valve involvement --will need 2 week IV therapy for negative blood cultures. 05/30/18 stop date # Severe right lower extremity cellulitis associated with R Lateral ankle wound --continue ceftriaxone x 2 weeks, 05/30/18 stop date --patient may stay in house for skin flap. ID to follow every couple days. #H/o septic L TKA w MRSA on chronic suppression w doxy Medication Ceftriaxone 2 g IV daily, # 7 doxycycline 100mg PO BID Micro 05/14 blood cultures 2 sets group a strep 05/16 blood cultures 2 sets neg Subjective: just ambulating b/t bed and chair Objective: Vital Signs Temp Pulse Resp BP Pulse Ox 37.4 C 70 15 142/72 H 91 L 05/23/18 08:00 05/23/18 09:00 05/23/18 09:00 05/23/18 08:40 05/23/18 09:00 Laboratory Results 05/22/18 06:30 05/22/18 06:30 05/22/18 05/23/18 05/24/18 05:59 05:59 05:59 Intake Total 500 300 Output Total 2049 1700 Balance -1550 -1400 Gen: cheerful, appears more vigorous CV: RRR Chest: clear B, breathing easy Abd soft NT +BS RLE marked decreased swelling, some hemorrhagic change medial calf, minimal residual erythema some mild change distal anterior calf, R lateral ankle wound with excellent granulation in base no purulence, bullae medial ankle, small hole opened with serous fluid. Mild warmth. Erythema medial thigh almost resolved RUE PICC c/d/i ICD10 Worksheet Patient Problems: Problems Problem Status Onset Cellulitis Acute Fever Acute Arm pain, left Acute Chest pain, rule out acute myocardial infarction Acute Chronic Disease Management/Transitional Care Program Acute Head injury Acute Laceration Acute Nasal fracture Acute
--- NOTE | 2018-05-23 11:04 | WOCRNPDOC ---
LIZZETH Advanced Assessment Note - Skin Integrity Problem, Advanced Assess Right Lateral Ankle Traumatic Wound Dressing Type: Wound Vac Dressing Description: Clean/Dry, Intact Exudate Color: Reddish/Yellow Exudate Characteristic(s): Serosanguinous Integumentary Issue Intervention: Dressing Changed Natalie Wound Tissue: Blanching, Hot Natalie Wound Swelling: Mild Wound Bed Color: Red, Yellow Wound Bed Constitution: Granulation Tissue (80%), Adhered Slough (20%) Wound Edges: Epithelizing, Attached, Not Attached (from 4-7 oclock) Site Odor: None Site Measurement - Head-to-Toe Length X Width X Depth (cm): 4.5x4.3x0.5 Skin Integrity Problem Comment: Wound vac dressing removed with adhesive remover. Wound cleansed with ns. No sting skin prep applied to periwound skin. Wound window-paned with vac drape. One piece of small black simplace foam used in wound bed and draped. Wound vac set at -125mmHG continuous. No leaks detected. Dr. Nice visualized wound prior to wound vac being put back on. Judi NJ in room for care. Patient given PO pain meds 30 minutes prior to dressing change and were effective. Wound care will round again on Monday for vac change. Elena Aly RN Wound care team Right Medial Calf Blister Dressing Type: ABD Pad, Kerlix Dressing Description: Clean/Dry, Intact, Shadowed Exudate Amount: Moderate Exudate Color: Yellow Exudate Characteristic(s): Clear Integumentary Issue Intervention: Dressing Changed Natalie Wound Tissue: Blanching, Erythema, Hot Natalie Wound Swelling: Mild Wound Bed Constitution: Draining Serous Blister Site Odor: None Site Measurement - Head-to-Toe Length X Width X Depth (cm): 6.6x5.3xroofed blister Skin Integrity Problem Comment: Dressing removed to visualize blister. Roof is still in place with some fluid draining. Dr. Nice visualized wound and drainage. New dressing applied by TERRY Juarez. Judi NJ in room for care. Wound care will round again at the end of the week. Elena Aly RN Wound care team.
--- NOTE | 2018-05-23 13:04 | WOCRNPDOC ---
[facility] Advanced Assessment Note - Skin Integrity Problem, Advanced Assess Right Medial Calf Blister Dressing Type: ABD Pad, Catrachita Dressing Description: Intact, Shadowed Exudate Amount: Moderate Exudate Characteristic(s): Seropurulent Integumentary Issue Intervention: Dressing Removed Skin Integrity Problem Comment: Blister lysed with sterile scissors. Roof is quite thick. Unable to obtain much drainage from lysed area but some serous fluid was able to be removed. No purulence found even though there appeared to be some on the ABD that was taken down. Will leave remainder of blister intact though whether or not the fluid will reabsorb is questionable. Dr. Nice present. Elena STEWART in room for care as well.
[2018-05-23] MEDS: ACETAMINOPHEN 325 MG TAB PO PRN (13:45)
--- NOTE | 2018-05-23 15:39 | SOAPPROG ---
SOAP Progress Note Assessment/Plan: Assessment: 78 yo female admitted on 05/14/18 for R lower extremity cellulitis causing sepsis , strep pyogenes bacteremia, and congestive heart failure. Cellulitus improved. Regarding her RLE, options are to either do a skin graft followed by wound VAC for 1 week or continue with secondary intention with a wound VAC in place for 1 month (with or without Primatrix or Epifix) and total healing time around 8 weeks. The obvious benefit to a skin graft is that the wound would be healed faster. However, it does require general anesthesia and Gisselle is just now gaining strength back She would like to proceed with skin graft. Risks and benefits and alternatives discussed. I also spent 15 min on the phone with her daughter Sigrid discussing the case. OR tomorrow at 7:15. They will call this afternoon if they change their mind S: Feeling better today. O: Patient is sitting in hospital bed. She is smiling in good spirits. RLE: Wound VAC in place on lateral wound. Violaceous to mid calf. Alert Appropriate mood and affect 05/23/18 07:56 05/23/18 15:37 Objective: Vital Signs Temp Pulse Resp BP Pulse Ox 37.4 C 74 15 142/72 H 94 05/23/18 08:00 05/23/18 11:28 05/23/18 09:00 05/23/18 08:40 05/23/18 11:28 Laboratory Results 05/22/18 06:30 05/22/18 06:30 05/22/18 05/23/18 05/24/18 05:59 05:59 05:59 Intake Total 500 300 Output Total 2049 1700 Balance -1550 -1400 PT 14.9 SEC (12.0-15.0) 05/14/18 15:15 INR 1.15 (0.83-1.16) 05/14/18 15:15 ICD10 Worksheet Patient Problems: Problems Problem Status Onset Cellulitis Acute Fever Acute Arm pain, left Acute Chest pain, rule out acute myocardial infarction Acute Chronic Disease Management/Transitional Care Program Acute Head injury Acute Laceration Acute Nasal fracture Acute
--- NOTE | 2018-05-23 16:48 | ASMTCMCOM ---
CM Note CM Note Notes: Spoke with pt and family re; dc snf. Pt only wants to go to [facility] or their Inpt Rehab. CM explained to pt that she doesn't qualify because per Lisa at [facility], she is not medically complicated enough for LTAC and not independent enough for their rehab. Pt has serious concerns about SNFs in general and has had several bad experiences. She feels there is not adequate staffing at those places to handle her needs. CM offered newer snf options such as: [facility] and [facility], pts dtr and son to tour but gave the OK to send referrals. DC Plan: SNF Date Signed: 05/23/2018 04:47 PM Electronically Signed By:Sophia Araya RN
--- NOTE | 2018-05-23 17:28 | HOSPPROG ---
Hospitalist Progress Note Assessment/Plan: DIAGNOSES: * acute sepsis * group a strep bacteremia with cellulitis and multiple wounds on her right lower extremity, the largest currently being treated with wound VAC * prior history of MRSA infection related to hip arthroplasty on chronic suppressive doxycycline * acute encephalopathy, multifactorial, resolved * acute hypoxemia episode, resolved, uncertain etiology * chronic sleep apnea on CPAP, chronic pulmonary hypertension * market generalized deconditioning and weakness * history of breast cancer with lumpectomy last month, did well with approximately 90 min general anesthesia for the lumpectomy I have discussed case today in detail with Dr. Tayler Maravilla along with the patient as well. Initially the patient opted this morning to be scheduled for skin graft procedure tomorrow. However she is now changed her mind would not like to undergo anesthesia and surgery. Instead the patient will have amniotic tissue graft placed tomorrow and continued wound VAC care. Will continue ongoing physical occupational therapy, antibiotics, nutritional support. PLANS: * Continue current Rocephin through May 30 * Continue current wound care at this time * Plan on placement of amniotic tissue graft tomorrow at bedside, with ongoing wound VAC and other wound care * She has had some Ensure here but it has been inconsistent so far, I will order this is a scheduled supplement * Physical occupational therapy * Continue CPAP * Avoiding sedating medicines as possible, continue other standard measures for encephalopathy * Eventual outpatient follow-up with Oncology for her breast cancer * Continue 2 g sodium diet, elevation of legs * Will increase dose of Lasix to see if she tolerates that over time SUBJECTIVE: Feels better today overall. Breathing is even a bit better today than yesterday Still some pain but not bad Eating well. OBJECTIVE Vitals reviewed: Stable without fever Exam: alert oriented skin warm dry color ok resps not labored lungs clear BSs heart regular abd soft nondistended nontender, bowel sounds present limbs warm, wounds examined, no change in wounds, wound VAC on her ankle in proper position and sealed and functioning well She does have remarkable edema of both legs, and this will end up being a prominent target to treat for prevention of similar episodes in the future iv site ok Laboratory data: A liver panel was done today and is normal Objective: Vital Signs Temp Pulse Resp BP Pulse Ox 36.6 C 68 92 H 106/62 16 L 05/23/18 16:00 05/23/18 16:05/23/18 16:05/23/18 16:00 05/23/18 16:00 Laboratory Results 05/22/18 06:30 05/22/18 06:30 05/22/18 05/23/18 05/24/18 06:59 06:59 06:59 Intake Total 500 300 Output Total 2049 1700 850 Balance -1550 -1400 -850 PT 14.9 SEC (12.0-15.0) 05/14/18 15:15 INR 1.15 (0.83-1.16) 05/14/18 15:15 ICD10 Worksheet Patient Problems: Problems Problem Status Onset Cellulitis Acute Fever Acute Arm pain, left Acute Chest pain, rule out acute myocardial infarction Acute Chronic Disease Management/Transitional Care Program Acute Head injury Acute Laceration Acute Nasal fracture Acute
[2018-05-23] MEDS: ROSUVASTATIN CALCIUM 10 MG TAB PO SCH (21:16)
[2018-05-23] MEDS: PANTOPRAZOLE SODIUM 40 MG TAB PO SCH (21:16)
[2018-05-24] MEDS: FUROSEMIDE 20 MG/2 ML VIAL IVP SCH (10:00)
[2018-05-24] MEDS: SENNOSIDES/DOCUSATE SODIUM TAB PO SCH ×2 (10:02→22:35)
[2018-05-24] MEDS: FLUoxetine 20 MG CAP PO SCH (10:02)
[2018-05-24] MEDS: ENOXAPARIN 40 MG/0.4 ML SYR SC SCH ×2 (10:02→22:35)
[2018-05-24] MEDS: DOXYCYCLINE HYCLATE 100 MG CAP/TAB PO SCH ×2 (10:03→22:34)
[2018-05-24] MEDS: ALLOPURINOL 100 MG TAB PO SCH ×2 (10:03→22:35)
[2018-05-24] MEDS: ASPIRIN 81 MG CHEWABLE TAB PO SCH (10:03)
[2018-05-24] MEDS: POTASSIUM CL 20 MEQ TAB PO SCH (10:03)
[2018-05-24] MEDS: ANASTROZOLE 1 MG TAB PO SCH (10:03)
[2018-05-24] MEDS: GABAPENTIN 300 MG CAP PO SCH ×3 (10:03→22:35)
[2018-05-24] MEDS: oxyCODONE IR 5 MG TAB PO PRN ×4 (10:37→23:57)
[2018-05-24] MEDS: BECLOMETHASONE QVAR 80 REDIHALER 120 INH/10.6 GM MDI IH SCH ×2 (11:14→22:03)
[2018-05-24] MEDS: IPRATROPIUM HFA INHALER IH SCH ×2 (11:14→22:04)
[2018-05-24] MEDS: NEBIVOLOL HCL 5 MG TAB PO SCH (11:15)
[2018-05-24] MEDS: ACETAMINOPHEN 325 MG TAB PO PRN (11:15)
--- NOTE | 2018-05-24 14:52 | ASMTCMCOM ---
CM Note CM Note Notes: Spoke w/pt, she called off surgery for skin graft, anticipate will still need SNF. Serenity from [facility] to visit tomorrow am and she will call pt's and dtr. DC Plan: [facility] Date Signed: 05/24/2018 02:51 PM Electronically Signed By:Sophia Araya RN
--- NOTE | 2018-05-24 17:39 | HOSPPROG ---
Hospitalist Progress Note Assessment/Plan: DIAGNOSES: * acute sepsis * group a strep bacteremia with cellulitis and multiple wounds on her right lower extremity, the largest currently being treated with wound VAC * prior history of MRSA infection related to hip arthroplasty on chronic suppressive doxycycline * acute encephalopathy, multifactorial, resolved * acute hypoxemia episode, resolved, uncertain etiology * chronic sleep apnea on CPAP, chronic pulmonary hypertension * market generalized deconditioning and weakness * history of breast cancer with lumpectomy last month, did well with approximately 90 min general anesthesia for the lumpectomy Plan as I understand it is for continued wound care wound VAC right now, with likely amniotic skin graft placement tomorrow, with replacement of the wound VAC and ongoing wound care. PLANS: * Continue current Rocephin through May 30 * Continue current wound care with wound VAC at this time * Plan on placement of amniotic tissue graft tomorrow at bedside, with ongoing wound VAC and other wound care * Physical occupational therapy * Continue CPAP * Avoiding sedating medicines as possible, continue other standard measures for encephalopathy * Eventual outpatient follow-up with Oncology for her breast cancer * Continue 2 g sodium diet, elevation of legs, Teds to left leg SUBJECTIVE: Feels stronger today, ambulating more easily, no respiratory symptoms Eating well Less pain in her leg OBJECTIVE Vitals reviewed: Stable without fever Exam: alert oriented normal mentation with no focal neurologic deficits at all skin warm dry color ok resps not labored lungs clear BSs heart regular abd soft nondistended nontender, bowel sounds present limbs warm, wounds examined, no change in wounds, wound VAC on her ankle in proper position and sealed and functioning well She does have remarkable edema of both legs, and this will end up being a prominent target to treat for prevention of similar episodes in the future iv site ok Objective: Vital Signs Temp Pulse Resp BP Pulse Ox 37.2 C 71 22 H 107/50 L 89 L 05/24/18 16:00 05/24/18 16:00 05/24/18 16:00 05/24/18 16:00 05/24/18 16:00 Laboratory Results 05/22/18 06:30 05/22/18 06:30 05/23/18 05/24/18 05/25/18 06:59 06:59 06:59 Intake Total 300 500 Output Total 1700 1425 700 Balance -1400 -1425 -200 PT 14.9 SEC (12.0-15.0) 05/14/18 15:15 INR 1.15 (0.83-1.16) 05/14/18 15:15 ICD10 Worksheet Patient Problems: Problems Problem Status Onset Cellulitis Acute Fever Acute Arm pain, left Acute Chest pain, rule out acute myocardial infarction Acute Chronic Disease Management/Transitional Care Program Acute Head injury Acute Laceration Acute Nasal fracture Acute
--- NOTE | 2018-05-24 20:25 | SOAPPROG ---
SOAP Progress Note Assessment/Plan: Assessment: 78 yo female admitted on 05/14/18 for R lower extremity cellulitis causing sepsis , strep pyogenes bacteremia, and congestive heart failure. Cellulitus improved. She preferred trying Epifix to skin graft Will apply tomorrow under vac S: Feeling better today. O: Patient is sitting in hospital bed. She is smiling in good spirits. RLE: Wound VAC in place on lateral wound. Violaceous to mid calf. Alert Appropriate mood and affect 05/23/18 07:56 05/23/18 15:37 05/24/18 20:24 Objective: Vital Signs Temp Pulse Resp BP Pulse Ox 37.2 C 71 22 H 107/50 L 89 L 05/24/18 16:00 05/24/18 16:00 05/24/18 16:00 05/24/18 16:00 05/24/18 16:00 Laboratory Results 05/22/18 06:30 05/22/18 06:30 05/23/18 05/24/18 05/25/18 05:59 05:59 05:59 Intake Total 300 600 Output Total 1700 1425 1550 Balance -1400 -1425 -950 PT 14.9 SEC (12.0-15.0) 05/14/18 15:15 INR 1.15 (0.83-1.16) 05/14/18 15:15 ICD10 Worksheet Patient Problems: Problems Problem Status Onset Cellulitis Acute Fever Acute Arm pain, left Acute Chest pain, rule out acute myocardial infarction Acute Chronic Disease Management/Transitional Care Program Acute Head injury Acute Laceration Acute Nasal fracture Acute
[2018-05-24] MEDS: ROSUVASTATIN CALCIUM 10 MG TAB PO SCH (22:34)
[2018-05-24] MEDS: PANTOPRAZOLE SODIUM 40 MG TAB PO SCH (22:35)
[2018-05-25] MEDS: oxyCODONE IR 5 MG TAB PO PRN ×2 (09:07→16:25)
[2018-05-25] MEDS: FUROSEMIDE 20 MG/2 ML VIAL IVP SCH (09:15)
[2018-05-25] MEDS: DOXYCYCLINE HYCLATE 100 MG CAP/TAB PO SCH ×2 (09:29→21:43)
[2018-05-25] MEDS: ANASTROZOLE 1 MG TAB PO SCH (09:29)
[2018-05-25] MEDS: ALLOPURINOL 100 MG TAB PO SCH ×2 (09:30→21:44)
[2018-05-25] MEDS: ASPIRIN 81 MG CHEWABLE TAB PO SCH (09:30)
[2018-05-25] MEDS: GABAPENTIN 300 MG CAP PO SCH ×3 (09:32→21:44)
[2018-05-25] MEDS: FLUoxetine 20 MG CAP PO SCH (09:32)
[2018-05-25] MEDS: ENOXAPARIN 40 MG/0.4 ML SYR SC SCH ×2 (09:33→21:43)
[2018-05-25] MEDS: POTASSIUM CL 20 MEQ TAB PO SCH (09:33)
[2018-05-25] MEDS: BECLOMETHASONE QVAR 80 REDIHALER 120 INH/10.6 GM MDI IH SCH ×2 (09:36→21:24)
[2018-05-25] MEDS: IPRATROPIUM HFA INHALER IH SCH ×2 (09:36→21:25)
[2018-05-25] MEDS: SENNOSIDES/DOCUSATE SODIUM TAB PO SCH ×2 (10:37→21:43)
--- NOTE | 2018-05-25 10:40 | ASMTCMCOM ---
CM Note CM Note Notes: Serenity from [facility] here meeting with family. After Katarzyna left CM asked family about choice, pt chooses and agrees to go to [facility], they will order wound vac for pt. DC Plan: SNF/ [facility] Date Signed: 05/25/2018 10:40 AM Electronically Signed By:Sophia Araya RN
--- NOTE | 2018-05-25 11:13 | PCMIDPN ---
Assessment/Plan: Assessment/Plan: * Sepsis due to group A streptococcal bacteremia associated with right lower extremity cellulitis: Continued resolution of cellulitis. Wound observed prior to wound VAC placement showing granulation throughout except for limited areas. Continuing on ceftriaxone through 05/30/2018. Discussed with patient and family that do not anticipate complete resolution of erythema at completion of antibiotic therapy as this will likely require additional time to fully resolve. Wound Care continuing under supervision of Dr. Maravilla. 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 Anticipate duration of therapy is indefinite. 05/25/18 11:11 Subjective: Patient feels significantly improved. Plans for patient to go to care home facility/rehab over weekend. Objective: Vital Signs Temp Pulse Resp BP Pulse Ox 37.0 C 64 16 107/52 L 92 05/25/18 08:00 05/25/18 09:37 05/25/18 09:37 05/25/18 08:00 05/25/18 09:37 Laboratory Results 05/22/18 06:30 05/22/18 06:30 05/24/18 05/25/18 05/26/18 05:59 05:59 05:59 Intake Total 850 Output Total 1425 2000 Balance -1425 -1150 Ceftriaxone # 9 Laboratory Tests 05/23/18 04:10 Total Bilirubin 0.4 AST 38 ALT 43 Alkaline Phosphatase 82 - Physical Exam General Appearance: alert, no apparent distress EENT: No scleral icterus Extremities: inflammation (Right lower extremity shows resolution of erythema above knee; below knee with more violaceous hue and beginning of skin desquamation; wound base with significant granulation no purulence; bulla slowly resolving but still present medially) - Line/s RUE PICC Lines: No drainage, No erythema ICD10 Worksheet Patient Problems: Problems Problem Status Onset Cellulitis Acute Fever Acute Arm pain, left Acute Chest pain, rule out acute myocardial infarction Acute Chronic Disease Management/Transitional Care Program Acute Head injury Acute Laceration Acute Nasal fracture Acute
--- NOTE | 2018-05-25 11:14 | PDIAF ---
- Diagnosis Diagnosis: Group a strep bacteremia with right lower extremity cellulitis Code Status: Full Code - Medication Management Discharge Medications: Medications to Continue on Transfer Allopurinol [Allopurinol 100 MG (*)] 200 mg PO BID 03/30/18 [Last Taken 09:00] Aspirin [Aspirin 81mg (*)] 81 mg PO DAILY 03/30/18 [Last Taken 05/14/18] Bumetanide [Bumex (*)] 2 mg PO DAILY 03/30/18 [Last Taken 05/14/18] Doxycycline Hyclate [Vibramycin 100 MG (*)] 100 mg PO BID 03/30/18 [Last Taken 05/14/18 09:00] FLUoxetine [Prozac 20 MG (*)] 40 mg PO DAILY 03/30/18 [Last Taken 05/14/18] Gabapentin [Neurontin 300 MG (*)] 300 mg PO TID 03/30/18 [Last Taken 05/14/18 09 :00] Herbals/Supplements -Info Only 1 ea PO DAILY 03/30/18 [Last Taken 04/20/18] Ipratropium [Atrovent Hfa (*)] 2 inh PO BID 03/30/18 [Last Taken 05/14/18 09:00] Multivitamins [Multivitamin (*)] 1 tab PO DAILY 03/30/18 [Last Taken 05/14/18] Nebivolol HCl [Bystolic 5 mg (*)] 5 mg PO DAILY 03/30/18 [Last Taken 05/14/18] Omeprazole 40 mg PO HS 03/30/18 [Last Taken 05/13/18] Potassium Cl [Klor-Con 20 meq (*)] 40 meq PO DAILY 03/30/18 [Last Taken 05/14/18 ] Rosuvastatin Calcium [Crestor] 5 mg PO HS 03/30/18 [Last Taken 05/13/18] Anastrozole [Arimidex 1 mg (*)] 1 mg PO DAILY 05/14/18 [Last Taken 05/14/18] Beclomethasone Qvar 80 [Qvar 80 Redihaler (*)] 2 inh IH BID 05/14/18 [Last Taken 05/14/18 09:00] Cholecalciferol Vit D3 [Vitamin D3 2000 units tab (OTC)] 5,000 units PO DAILY [Last Taken 05/14/18] Ibuprofen [Motrin (*)] 200 mg PO QID PRN 05/14/18 [Last Taken Unknown] Indomethacin [Indocin 25 mg (*)] 50 mg PO DAILY PRN 05/14/18 [Last Taken Unknown ] oxyCODONE/APAP 5/325 [Percocet 5/325 (*)] 1 - 2 tab PO Q4 PRN 05/14/18 [Last Taken Unknown] [employer] Antibiotics: Ceftriaxone 2 g IV Q 24 hr [employer] Antibiotic Stop Date: 05/30/18 Discharge Medications: Refer to the Discharge Home Medication list for PRN reason. PICC Care - Routine: Yes - Orders Services needed: Registered Nurse Isolation Type: Chemotherapy Isolation, Contact Isolation Diet Texture: Regular Texture Diet, Thin Liquids Additional Instructions: Wound vac orders 1.Vac machine should be operating at -125mmHg Continuous. Black foam to wound bed. Elena Aly RN, Wound care team - Labs/Radiology CBC w/diff Date: 05/28/18 (Weekly) CMP Date: 05/28/18 (Weekly) Call or Fax Lab and Imaging Results to: Dr. Mendel Gunn - Follow Up Care Current Providers and Referrals: Gary Bush MD [Primary Care Provider] - As per Instructions
--- NOTE | 2018-05-25 11:45 | WOCRNPDOC ---
WOCRN Advanced Assessment Note - Skin Integrity Problem, Advanced Assess Right Lateral Ankle Traumatic Wound Dressing Type: Black Vac Foam, Wound Vac Dressing Description: Clean/Dry, Intact Exudate Amount: Minimal Exudate Color: Red Exudate Characteristic(s): Bloody Integumentary Issue Intervention: Dressing Changed (AmnioFill applied per Dr. Maravilla, 250mg) Natalie Wound Tissue: Intact Wound Bed Color: Red Wound Bed Constitution: Granulation Tissue (90%), Subcutaneous Fat (10%) Wound Edges: Attached, Well Defined Site Measurement - Head-to-Toe Length X Width X Depth (cm): 5x4.5x0.4 Skin Integrity Problem Comment: Vac dressing removed with adhesive remover. Wound bed cleaned with NS and gauze. Small black foam cut to fit wound bed, moistened with NS and AmnioFill applied to foam in thick layer. Foam applied to wound bed and draped. Small hole cut in drape for track pad. Good seal achieved at -125mmHg suction. Blue AmnioFill sticker placed on dressing indicating not to change vac for one week - due Monday, 06/01. Patient tolerated the procedure well. EARNEST Sparrow, and Radha Suarez RN in room to assist with vac change.
[2018-05-25] MEDS: NEBIVOLOL HCL 5 MG TAB PO SCH (16:06)
--- NOTE | 2018-05-25 18:34 | HOSPPROG ---
Hospitalist Progress Note Assessment/Plan: DIAGNOSES: * acute sepsis * group a strep bacteremia with cellulitis and multiple wounds on her right lower extremity, the largest currently being treated with wound VAC * prior history of MRSA infection related to hip arthroplasty on chronic suppressive doxycycline * acute encephalopathy, multifactorial, resolved * acute hypoxemia episode, resolved, uncertain etiology * chronic sleep apnea on CPAP, chronic pulmonary hypertension * market generalized deconditioning and weakness * history of breast cancer with lumpectomy last month, did well with approximately 90 min general anesthesia for the lumpectomy PLANS: * Continue current Rocephin through May 30 * Continue current wound care with wound VAC at this time; Dr. Petit will be managing the ongoing care of her ankle wound other wounds * Physical occupational therapy * Continue CPAP * Eventual outpatient follow-up with Oncology for her breast cancer * Continue 2 g sodium diet, elevation of legs, Teds to left leg * Likely transfer to halfway facility tomorrow SUBJECTIVE: Feels again overall better today with continued improving strength and mobility No shortness of breath Less pain Had her amniotic graft placed over ankle wound today without difficulty OBJECTIVE Vitals reviewed: Stable without fever Exam: alert oriented normal mentation with no focal neurologic deficits at all skin warm dry color ok resps not labored lungs clear BSs heart regular abd soft nondistended nontender, bowel sounds present iv site ok Objective: Vital Signs Temp Pulse Resp BP Pulse Ox 37.2 C 80 16 117/53 L 87 L 05/25/18 16:00 05/25/18 16:00 05/25/18 16:00 05/25/18 16:00 05/25/18 16:00 Laboratory Results 05/22/18 06:30 05/22/18 06:30 05/24/18 05/25/18 05/26/18 06:59 06:59 06:59 Intake Total 850 Output Total 1425 1999 1650 Balance -1425 -1150 -1650 PT 14.9 SEC (12.0-15.0) 05/14/18 15:15 INR 1.15 (0.83-1.16) 05/14/18 15:15 ICD10 Worksheet Patient Problems: Problems Problem Status Onset Cellulitis Acute Fever Acute Arm pain, left Acute Chest pain, rule out acute myocardial infarction Acute Chronic Disease Management/Transitional Care Program Acute Head injury Acute Laceration Acute Nasal fracture Acute
[2018-05-25] MEDS: PANTOPRAZOLE SODIUM 40 MG TAB PO SCH (21:44)
[2018-05-25] MEDS: ROSUVASTATIN CALCIUM 10 MG TAB PO SCH (21:44)
[2018-05-26] MEDS: oxyCODONE IR 5 MG TAB PO PRN ×3 (00:17→16:10)
--- NOTE | 2018-05-26 08:27 | SOAPPROG ---
SOAP Progress Note Assessment/Plan: Assessment: Preprocedure diagnosis: Traumatic wound RLE Postprocedure diagnosis: Same Procedure performed: Application tissue derived skin substitute Findings: 5x4.5x0.4 with 100% healthy granulation tissue. Amniofill 250 mg [id number] Expires 12-28-2022 Specimens: None EBL: None Indications: 78 yo female admitted on 05/14/18 for R lower extremity cellulitis causing sepsis , strep pyogenes bacteremia, and congestive heart failure. We offered skin graft and she declined Description of procedure: Patient was in the sitting position. Wound was cleansed. Amniofill applied to wound vac sponge and placed on wound. Tolerated procedure well. Instructions: Do not need to change vac sponge x 1 week. May be clamped for transport. After June 01, 2018 change vac MWF. I am going to authorize for [facility] at my office Objective: Vital Signs Temp Pulse Resp BP Pulse Ox 36.7 C 77 18 126/56 H 88 L 05/25/18 21:59 05/25/18 21:59 05/25/18 21:59 05/25/18 21:59 05/25/18 21:59 Laboratory Results 05/22/18 06:30 05/22/18 06:30 05/25/18 05/26/18 05/27/18 05:59 05:59 05:59 Intake Total 850 450 Output Total 2000 2500 Balance -1150 -2050 PT 14.9 SEC (12.0-15.0) 05/14/18 15:15 INR 1.15 (0.83-1.16) 05/14/18 15:15 ICD10 Worksheet Patient Problems: Problems Problem Status Onset Cellulitis Acute Fever Acute Arm pain, left Acute Chest pain, rule out acute myocardial infarction Acute Chronic Disease Management/Transitional Care Program Acute Head injury Acute Laceration Acute Nasal fracture Acute
[2018-05-26] MEDS: BECLOMETHASONE QVAR 80 REDIHALER 120 INH/10.6 GM MDI IH SCH (08:55)
[2018-05-26] MEDS: IPRATROPIUM HFA INHALER IH SCH (08:55)
[2018-05-26] MEDS: ALLOPURINOL 100 MG TAB PO SCH (09:28)
[2018-05-26] MEDS: POTASSIUM CL 20 MEQ TAB PO SCH (09:28)
[2018-05-26] MEDS: GABAPENTIN 300 MG CAP PO SCH ×2 (09:29→16:08)
[2018-05-26] MEDS: FLUoxetine 20 MG CAP PO SCH (09:29)
[2018-05-26] MEDS: ANASTROZOLE 1 MG TAB PO SCH (09:29)
[2018-05-26] MEDS: DOXYCYCLINE HYCLATE 100 MG CAP/TAB PO SCH (09:29)
[2018-05-26] MEDS: ASPIRIN 81 MG CHEWABLE TAB PO SCH (09:29)
[2018-05-26] MEDS: FUROSEMIDE 20 MG/2 ML VIAL IVP SCH (09:30)
[2018-05-26] MEDS: SENNOSIDES/DOCUSATE SODIUM TAB PO SCH (09:32)
[2018-05-26] MEDS: ENOXAPARIN 40 MG/0.4 ML SYR SC SCH (09:38)
--- NOTE | 2018-05-26 11:28 | PDIAF ---
- Diagnosis Diagnosis: Group a strep bacteremia, R leg wound infection, stasis dermatitis Code Status: Full Code - Medication Management Discharge Medications: Medications to Continue on Transfer Allopurinol [Allopurinol 100 MG (*)] 200 mg PO BID 03/30/18 [Last Taken 09:00] Aspirin [Aspirin 81mg (*)] 81 mg PO DAILY 03/30/18 [Last Taken 05/14/18] Bumetanide [Bumex (*)] 2 mg PO DAILY 03/30/18 [Last Taken 05/14/18] Doxycycline Hyclate [Vibramycin 100 MG (*)] 100 mg PO BID 03/30/18 [Last Taken 05/14/18 09:00] FLUoxetine [Prozac 20 MG (*)] 40 mg PO DAILY 03/30/18 [Last Taken 05/14/18] Gabapentin [Neurontin 300 MG (*)] 300 mg PO TID 03/30/18 [Last Taken 05/14/18 09 :00] Ipratropium [Atrovent Hfa (*)] 2 inh PO BID 03/30/18 [Last Taken 05/14/18 09:00] Multivitamins [Multivitamin (*)] 1 tab PO DAILY 03/30/18 [Last Taken 05/14/18] Nebivolol HCl [Bystolic 5 mg (*)] 5 mg PO DAILY 03/30/18 [Last Taken 05/14/18] Omeprazole 40 mg PO HS 03/30/18 [Last Taken 05/13/18] Potassium Cl [Klor-Con 20 meq (*)] 40 meq PO DAILY 03/30/18 [Last Taken 05/14/18 ] Rosuvastatin Calcium [Crestor] 5 mg PO HS 03/30/18 [Last Taken 05/13/18] Anastrozole [Arimidex 1 mg (*)] 1 mg PO DAILY 05/14/18 [Last Taken 05/14/18] Beclomethasone Qvar 80 [Qvar 80 Redihaler (*)] 2 inh IH BID 05/14/18 [Last Taken 05/14/18 09:00] Cholecalciferol Vit D3 [Vitamin D3 2000 units tab (OTC)] 5,000 units PO DAILY [Last Taken 05/14/18] oxyCODONE/APAP 5/325 [Percocet 5/325 (*)] 1 - 2 tab PO Q4 PRN 05/14/18 [Last Taken Unknown] Doxycycline Hyclate [Vibramycin 100 MG (*)] 100 mg PO BID capsule 05/26/18 [ Last Taken Unknown] Enoxaparin [Lovenox 40 MG (*)] 40 mg SC Q12HRS syr 05/26/18 [Last Taken Unknown ] Furosemide [Lasix Injection] 20 mg IVP DAILY vial 05/26/18 [Last Taken Unknown] Polyethylene Glycol 3350 [Miralax 17 gm (*)] 17 gm PO DAILY PRN pkt 05/26/18 [ Last Taken Unknown] Sennosides/Docusate Sodium [Senokot-S] 1 - 2 tab PO BID tab 05/26/18 [Last Taken Unknown] cefTRIAXone [Rocephin] 2 gm IV DAILY vial 05/26/18 [Last Taken Unknown] oxyCODONE IR [Oxycodone Ir (*)] 10 - 15 mg PO Q3H PRN tab 05/26/18 [Last Taken Unknown] Rn Document Improvement Antibiotics: Ceftriaxone 2 g IV Q 24 hr Care Home Antibiotic Stop Date: 05/30/18 (Also note the pt takes chronic doxycycline for history of infected joint prosthesis - she must continue this indefinitely) Discharge Medications: Refer to the Discharge Home Medication list for PRN reason. PICC Care - Routine: Yes - Orders Services needed: Registered Nurse Isolation Type: Chemotherapy Isolation, Contact Isolation Diet Recommendation: sodium restricted (2 gm) Diet Texture: Regular Texture Diet, Thin Liquids Len Stockings Discontinue Date: continue on Left leg indefinitely; resume R when ulcers healed per Dr Maravilla Wound Care Instructions: keep wound vac on lateral R leg ulcer - she is to see Dr Maravilla to reasses this wound this coming week. Keep ulcer on medial R leg clean and protected from pressure and abraision, with daily inspection; Also see under "Additional instructions" re the wound vacc Equipment: walker, wound vac Additional Instructions: Wound vac orders As of Friday, May 25, 2018, AmnioFill to wound bed, covered with wound vac. Vac not to be changed for 1 week. Next due, Friday 06/[address] Maravilla. Vac machine should be operating at -125mmHg continuous. Black foam to wound bed. Elena Aly RN, Wound care team - Labs/Radiology CBC w/diff Date: 05/28/18 (Weekly) CMP Date: 05/28/18 (Weekly) Call or Fax Lab and Imaging Results to: Dr. Mendel Gunn - Follow Up Care Current Providers and Referrals: Gary Bush MD [Primary Care Provider] - As per Instructions
--- NOTE | 2018-05-26 11:31 | PDDCSUM ---
Discharge Summary Discharge Summary: DISCHARGE DIAGNOSES: * acute sepsis * group a strep bacteremia with cellulitis and multiple wounds on her right lower extremity, the largest currently being treated with wound VAC * prior history of MRSA infection related to hip arthroplasty on chronic suppressive doxycycline * acute encephalopathy, multifactorial, resolved * acute hypoxemia episode, resolved, uncertain etiology * chronic stasis dermatitis with prior stasis wounds in the legs * chronic sleep apnea on CPAP, chronic pulmonary hypertension * chronic right-sided congestive heart failure, uncompensated at the time of admission improved during her hospital stay * market generalized deconditioning and weakness * history of breast cancer with lumpectomy last month, did well with approximately 90 min general anesthesia for the lumpectomy CONSULTANTS: Dr. Tayler Maravilla, Chris Mullins, Mendel Gunn, Gina Nice PROCEDURES: Placement of PICC catheter Doppler ultrasound of extremities showing no evidence of DVT Ultrasound guidance of central IV catheter placement Bedside debridement of the lateral rate ankle wound, with subsequent placement of amniotic graft and wound VAC HOSPITAL COURSE SUMMARY: This patient with chronic severe stasis changes of the skin of her legs from pulmonary hypertension, had had a wound to her right ankle prior to this admission that required outpatient surgical debridement and she was being treated at home with wound VAC. She developed increasing pain and redness of the leg. She presented here to the hospital with obvious infection at the wound and cellulitis of the leg. She did have evidence of sepsis with elevated lactate but without acute organ failure. Patient was admitted the hospital and resuscitated and after cultures were obtained antibiotics were stated. Cultures of blood grew a group a strep pyogenes. Will we have these results her antibiotics were tailored. With ongoing management of her sepsis and with antibiotics the sepsis did resolve fairly quickly. However she remained fairly ill with very painful ulcers of the right leg. She continued with intermittent debridement of the right lateral ankle wound and wound VAC was continued for that wound. The other wounds were treated with standard wound care measures. Gradually her fevers resolved her blood cultures cleared, her wounds improved and her pain decreased. She was extremely weak initially but did regain strength and is now able to do some short walking across her room. At this point things have stabilized well enough that she is ready for transfer from here to a fdc facility. Regarding her right lateral ankle wound which was the initiating wound for this infection and the most significant of her wounds, she was last treated by Dr. Tayler Maravilla with placement of an amniotic graft and replacement of the wound VAC over that on May 25. Is recommended that she see Dr. Maravilla in wound Care Clinic 1 week for reassessment of that wound. She also has an open ulcer that is superficial on the medial aspect of the right calf. This will require daily inspection with dressings for protection as well. Regarding her right-sided congestive heart failure, she did have worsening of her leg edema with resuscitation for her sepsis. Subsequently she has been placed on 2 g sodium diet and treated with diuresis and her compression stocking has been placed back on her left leg. She is having quite notable decrease in edema in the left leg and also measurable decrease in edema in the right leg. Once her wounds are completely healed she will probably be able to resume compression stocking on the right leg as well. It was emphasized to the patient that she should keep on 2 g sodium diet, compression stockings, diuretics, elevation of legs indefinitely to help reduce risk of further episodes. PENDING TEST RESULTS: None MEDICATION CHANGES: Addition of Rocephin 2 g IV daily through May 30, Lovenox 40 mg daily Lasix 20 mg daily MiraLax as needed and Percocet switched out for oxycodone 10-15 mg as needed for pain Discontinuation of ibuprofen and indomethacin FOLLOW-UP PLAN: She is transferred from here to fdc facility at this time will be under the care of the physicians and nursing staff at that facility. She will continue under the care of Dr. Tayler Maravilla in the Wound Care Clinic here and should see Dr. Rodriguez in next week for reassessment of the lateral right ankle wound. Greater than 35 minutes bedside and care coordination time today
--- NOTE | 2018-05-26 12:31 | ASMTDCNOTE ---
Case Management Discharge Discharge Order Complete? Answers: Yes Patient to Obtain Answers: Other Notes: [facility] Medications Transportation Arranged Answers: Other Notes: [facility] will Pick (Date 05/26/2018 04:30 PM & Time) Faxed Final Orders Answers: Yes Agency/Facility Transfer Answers: Yes Report Printed & Faxed to Receiving Agency Family Notified Answers: Yes Discharge Comments Notes: D/w MD, final orders faxed. Vivian at [facility] notified that pt has her own wheelchair that is a 24 inch wheelbase, [facility] can accomodate. CM also confirmed that wound vac and bariatric bed have been ordered. RN to call report. Date Signed: 05/26/2018 12:01 PM Electronically Signed By:Sophia Araya RN
[2018-05-26] MEDS: NEBIVOLOL HCL 5 MG TAB PO SCH (16:08)
[2018-05-26 16:11] VITALS: BP 105/60
--- NOTE | 2018-05-26 17:24 | ASDISCHSUM ---
Discharge Information Plan Status:SNF Medically Cleared to Leave: Discharge Date:05/26/2018 04:39 PM D/C Disposition:[facility] ADT D/C Disposition:[facility] Projected Discharge Date:05/26/2018 11:00 AM Transportation at D/C:Wheelchair Van Discharge Delay Reason: Follow-Up Date:05/26/2018 11:00 AM Discharge Slot: Final Diagnosis: Placement Information Referral Type:[facility] Referral ID:[id number] Provider Name: Address 1: Phone Number: Address 2: Fax Number: City: Selection Factors: State: Referral Type:*Alf/SNF Referral ID:[id number] Provider Name:[facility] Address 1:[address] [facility] Address 2: City:[place] Selection Factors: State:[place] Patient Contact Information Contact Name:LUBNA Relationship: Address:[address] City:[place] Alternate Phone: State/Zip Code:[place] [address] Email: Financial Information Financial Class:Medicare Primary Plan Desc:MEDICARE INPATIENT Primary Plan Number:[id number] Secondary Plan Desc[facility] Secondary Plan Number:[id number] Assessment Information [facility] Progress Note CM Note CM Note Notes: Pt was admitted with R LE cellulitis, sepsis and CHF. She has a hx of morbid obesity and breast CA, She fractured her ankle 03/27/18 and was given a walking boot which caused an ulceration on her ankle. An I&D was done 04/[address] Maravilla and wound vac placed. Currently the wound vac is off and may be put back on tomorrow. Pt may need another I&D. She is on IV ABX. She is current with [facility]. She is and lives in [place]. CM will follow for any d/c needs. Date Signed: 05/15/2018 02:08 PM Electronically Signed By:CRISTA Cook [facility] CM Progress Note CM Note CM Note Notes: Chart reviewed. Patient admitted with sepsis and CHF had wound vac placed. Was current with [facility]. Therapies recommending SNF.. Cultures pending for antibiotics. Needs TBD Plan: Likely to SNF when medically stable for discharge to home. Date Signed: 05/17/2018 04:18 PM Electronically Signed By:Radha Gray RN [facility] CM Progress Note CM Note CM Note Notes: Spoke w/pt re; dc SNF. PT/OT recommend SNF, pt seems agreeable but doesn't seem to be able to have an extended conversation about it. She gave permission to speak with her son Lamont [phone], cm called and left . DC Plan: SNF Date Signed: 05/19/2018 03:43 PM Electronically Signed By:Sophia Araya RN [facility] CM Progress Note CM Note CM Note Notes: Spoke with patient and her Naga about the recommendation for SNF rehab. Patient reports she has been in 3 SNF programs and they were not properly staffed and she does not want to return there. Patient prefers to go to LTAC level of care. I explained that PT had not made that recommendation and her insurance may not reimburse for a higher level of care if she does not need it. I will send a referral to [facility] at patient's request in case they have a rehab program separate from the LTAC. Spoke with patient's son Moshe and he states his mother does not want to return to SNF care and if there is any way she can qualify for LTAC, the family would like that option to be pursued. CM in the process of determining what options are realistic. CM will follow. Date Signed: 05/21/2018 04:54 PM Electronically Signed By:Xochitl Ortiz LCSW [facility] Progress Note CM Note CM Note Notes: Spoke with [facility] who states patient does not qualify for either LTAC or their inpatient rehab program which requires patients to be ready for 3 hours per day physical activity. Spoke with patient and her to let her know [facility] was not an option for her at this time. Patient states she does not trust longterm physicians and cannot get comfortable with going to a SNF. Encouraged patient to discuss this with the physician/hospitalist to see if they have thoughts on the level of care she needs at d/c. CM will follow. Date Signed: 05/22/2018 11:30 AM Electronically Signed By:Xochitl Ortiz LCSW [facility] Progress Note CM Note CM Note Notes: [facility] called to let us know they have an open case on Vee. They were informed patient hasn't made a decision on SNF placement yet. CM will follow. Date Signed: 05/22/2018 04:14 PM Electronically Signed By:Xochitl Ortiz LCSW [facility] CM Progress Note CM Note CM Note Notes: Spoke with pt and family re; dc snf. Pt only wants to go to [facility] LT[facility] or their Inpt Rehab. CM explained to pt that she doesn't qualify because per Lisa at [facility], she is not medically complicated enough for LTAC and not independent enough for their rehab. Pt has serious concerns about SNFs in general and has had several bad experiences. She feels there is not adequate staffing at those places to handle her needs. offered newer snf options such as: [facility] and [facility], pts dtr and son to tour but gave the OK to send referrals. DC Plan: SNF Date Signed: 05/23/2018 04:47 PM Electronically Signed By:Sophia Araya RN [facility] Progress Note CM Note CM Note Notes: Spoke w/pt, she called off surgery for skin graft, anticipate will still need SNF. Serenity from [facility] to visit tomorrow am and she will call pt's and dtr. DC Plan: [facility] Date Signed: 05/24/2018 02:51 PM Electronically Signed By:Sophia Araya RN [facility] Progress Note CM Note CM Note Notes: Serenity from [facility] here meeting with family. After Katarzyna left asked family about choice, pt chooses and agrees to go to [facility], they will order wound vac for pt. DC Plan: [facility]/ [facility] Date Signed: 05/25/2018 10:40 AM Electronically Signed By:Sophia Araya RN Case Management Discharge Plan Note Case Management Discharge Discharge Order Complete? Answers: Yes Patient to Obtain Answers: Other Notes: [facility] Medications Transportation Arranged Answers: Other Notes: [facility] will Pick (Date 05/26/2018 04:30 PM & Time) Faxed Final Orders Answers: Yes Agency/Facility Transfer Answers: Yes Report Printed & Faxed to Receiving Agency Family Notified Answers: Yes Discharge Comments Notes: D/w , final orders faxed. Vivian at [facility] notified that pt has her own wheelchair that is a 24 inch wheelbase, [facility] can accomodate. also confirmed that wound vac and bariatric bed have been ordered. RN to call report. Date Signed: 05/26/2018 12:01 PM Electronically Signed By:Sophia Araya RN Intervention Information Intervention Type:*IM-Signed Date of Service:05/25/2018 01:22 PM Patient Type:Inpatient Staff Member:Jessica Gates Hours: Discipline: Severity: Comment:
== END 2018-05-26 16:39 | DRG 871 ==
LOC: OBSVTOIN 15:36 → F2N 17:11 → F3E 05-16 11:54
PROVIDERS: ADMIT Internal Medicine; ATTEND Internal Medicine
PROC: 02HV33Z Insertion of Infusion Device into Superior Vena Cava, Percutaneous Approach (ICD-10-PCS; principal; 2018-05-14)
PROC: 02HV33Z Insertion of Infusion Device into Superior Vena Cava, Percutaneous Approach (ICD-10-PCS; 2018-05-19)
DX: A40.0 Sepsis due to streptococcus, group A (principal); G93.41 Metabolic encephalopathy; J96.01 Acute respiratory failure with hypoxia; L03.115 Cellulitis of right lower limb; I83.213 Varicose veins of right lower extremity with both ulcer of ankle and inflammation; E66.2 Morbid (severe) obesity with alveolar hypoventilation; I27.20 Pulmonary hypertension, unspecified; I11.0 Hypertensive heart disease with heart failure; I50.812 Chronic right heart failure; Z85.3 Personal history of malignant neoplasm of breast; Z86.14 Personal history of Methicillin resistant Staphylococcus aureus infection; Z96.642 Presence of left artificial hip joint; M10.9 Gout, unspecified
CPT/HCPCS: 83605-PO; 84484-PO; 92610-GN; 96374; 97110-GO; 97116-GP; 97163-GP; 97166-GO; 97530-GO; 97530-GP; 97535-GO; C1751; G8978-GP-CM; G8979-GP-CJ; G8980-GP-CK; G8987-GO-CK; G8987-GO-CL; G8988-GO-CJ; G8996-GN-CH; G8997-GN-CH; G8998-GN-CH; J0690; J0696; J1650; J1940; J2270; J2405; J3370

== ENCOUNTER → 2018-07-19 | Outpatient (CLI) | payer OTHER | LOC: FIMAGING 14:16 | PROVIDERS: ATTEND Internal Medicine Hematology & Oncology | DX: Z08 Encounter for follow-up examination after completed treatment for malignant neoplasm (principal); Z85.3 Personal history of malignant neoplasm of breast ==

== ENCOUNTER → 2018-10-15 | Outpatient (CLI) | payer OTHER | LOC: BHLMT 16:15 | PROVIDERS: ATTEND Internal Medicine Cardiovascular Disease | DX: R06.02 Shortness of breath (principal); E66.9 Obesity, unspecified; I10 Essential (primary) hypertension | CPT/HCPCS: 93306-PO ==

== ENCOUNTER → 2018-12-28 | Outpatient (CLI) | payer OTHER | LOC: CIMAGING 15:02 | PROVIDERS: ATTEND Internal Medicine Hematology & Oncology | DX: Z12.31 Encounter for screening mammogram for malignant neoplasm of breast (principal) ==